=== PATIENT | male | born 1945 | race Caucasian/White ===

== ENCOUNTER 2025-02-08 20:50 | Inpatient (IN) ==
[2025-02-08] MEDS: OPTIRAY 320 100ml IV ONE (21:46)
--- NOTE | 2025-02-08 21:49 | Surgery Consultation ---
Date of Consultation February 08, 2025 Assessment & Plan (1) Abdominal pain: I discussed with the treating emergency room physician. The patient is likely going to be admitted on the medical service with surgical recommendations as follows: Cause of patient's abdominal pain has not been definitively ascertained. The patient does have some areas of free fluid in his abdomen with potential etiologies as follows: 1. The fluid could represent blood/hematoma but I doubt this is present as the patient does not have a significant drop of his hemoglobin and hematocrit 2. The fluid could represent retained irrigation fluid or inflammatory fluid/seroma 3. Fluid could potentially represent a postoperative abscess 4. The fluid could potentially represent a postoperative biloma/bile leak In addition patient has abdominal bloating/distention likely on the basis of a postoperative ileus I suspect the patient's shoulder pain is likely referred pain potentially from abdominal insufflation at time of surgery The treating emergency room physician has ordered a repeat CT scan of the abdomen pelvis which I feel is reasonable A chest x-ray has been ordered and has been reviewed. The patient does appear to have small bilateral pleural effusions. I did not appreciate any significant free intraperitoneal or subdiaphragmatic air An EKG has been performed that showed sinus rhythm without changes indicative of acute ischemia Appropriate blood cultures and a urinalysis have been ordered A full panel of labs have been ordered including a CBC, CMP, lactic acid level, coagulation studies and lipase; we will await the results of these and act accordingly Antibiotics in the form of Zosyn have been ordered and should continue Will hydrate the patient with IV fluids. The treating emergency room physician has ordered 1 L fluid bolus and then we will proceed with maintenance fluids at 125 cc/h (I suspect the patient is somewhat dehydrated from poor oral intake over the past several daysthis is consistent with labs values of his BUN, creatinine, hemoglobin, and hematocrit) Would recommend keeping the patient n.p.o. for the present time In order to to further investigate for a bile leak will obtain a HIDA scan tomorrow Would recommend utilizing only SCDs for DVT prevention, no chemical means until it is ascertained whether or not the patient requires any procedural/surgical intervention Additional recommendations will be forthcoming based on his clinical course as unfolds The above plan was discussed with the patient's , Citlalli, who was present at bedside. The patient's can be reached if she is not at the patient's bedside at her phone number which is [phone] Supervising Physician Co-Signing Physician Notes pnt d/w ALBERT, labs and imaging reviewed, agree with above. POD2 lap darek, presented to 2 hospitals with abd pain and FTT. increasing perihepatic fluid collection, concern for bile leak though patient has biliary stent in place. wbc 16, tbili 1.2, otherwise unremarkable. admit to medicine, broad spectrum abx, npo, HIDA scan tomorrow, possible IR aspiration/drainage. D/W Dr Almanza in AM. History of Present Illness Reason for Consultation: Abdominal pain status post cholecystectomy History of Present Illness This is an 79-year-old male who presented to the emergency department at [facility] as a transfer from the [facility] urgent care clinic. It should be noted that this man has underlying dementia and has poor short-term memory. Upon my initial questioning of the patient he could not remember events that even took place earlier today. His and granddaughter were present at the bedside shortly after my initial encounter and they verified that this is the patient's baseline. The patient's and granddaughter did help supplement the history thereafter. They note that the patient underwent an outpatient ERCP by Dr. Sherman Sullivan of [facility] gastroenterology on 01/20/2025. Dr. Sullivan's report was reviewed and he did find choledocholithiasis which was addressed and the patient did have a biliary stent placed which is still in place today. The patient subsequently underwent a laparoscopic cholecystectomy by Dr. Almanza at [facility] on 02/06/2025. The operative note from this procedure was reviewed and there were no apparent complications. According to the patient's , however the patient was having persistent abdominal pain following his surgery but then noted that the patient did meet criteria for discharge home and he was discharged home later that day. The patient resides at [place], [place] and the day following his surgery (02/07/2025) he was having significant abdominal pain and he presented to the [facility]. [facility] did talk to the on-call surgical providers at [facility] but no beds were available for direct transfer. The patient was observed at this facility but ultimately felt stable for discharge home with outpatient follow-up with his surgeon. The patient did reach out to his surgeon Dr. Almanza on 02/08/2025 which was today. He was seen in the outpatient clinic where the patient was noted to have an expected postoperative recovery course and he was felt to be stable for d ischarge home. The patient's noted that she felt uncomfortable with this decision and immediately took her to the [facility] urgent care clinic. While at the [facility] in [place] the patient did undergo a CT scan of the abdomen pelvis. This showed the patient had findings consistent with a cholecystectomy. There is a small volume of fluid collection in the gallbladder fossa felt to be consistent with recent surgery. The patient was however noted to have small to moderate peritoneal fluid collections in the sup diaphragmatic spaces which included the left greater than right, also along the greater curvature of the stomach and in the right upper quadrant adjacent to the second portion of the duodenum extending to the central mesentery. Fluid was also noted in the right colonic gutter and pelvis. A common duct stent was noted to be in place in the biliary tree. The interpreting radiologist did note that some of the fluid potentially represented a bile leak. There are also findings consistent with a probable colonic ileus. Labs performed at this facility included a CBC were white blood cell count was elevated 16,000. Hemoglobin and hematocrit were 15.1 and 44.9. Platelet count was normal. Labs included a BUN and creatinine of 36 and 1.6. The patient's sodium was normal as was his potassium. The patient did not have an elevated alkaline phosphatase which was 37. The patient's total bilirubin was normal at 1.1 and his direct bilirubin was normal at 0.3. The patient's transaminases were not elevated with an AST of 14 and ALT of 27. I did question the patient's on additional symptomatology. She does again note that since his surgery he has been complaining of significant abdominal pain. She notes that he complains of the pain radiates to the shoulders bilaterally. He has had almost no oral intake since his surgery including liquids. She notes that he has not had any nausea or vomiting and he has not had any difficulties urinating. She does report that he did have a bowel movement yesterday. He has not had any reported fevers (she does note that she took his temperature at home). The patient has not had any falls or head injuri es. In addition, she does note that he seems to have considerable abdominal bloating compared to normal for him. I did ask the patient's if he takes any blood thinners and he only takes a baby aspirin but no other anticoagulants. At the time of my interview with the patient he was in no distress but he did seem somewhat uncomfortable Allergies Allergy/AdvReac Type Severity Reaction Status Date / Time cortisone Allergy Mild Cortisone Verified 02/06/25 09:03 cream ("made things worse") Home Medications Medication Instructions Recorded Confirmed Type albuterol sulfate 90 mcg/actuation 1 inh inhalation QID PRN sob 01/31/25 02/08/25 History aerosol inhaler amlodipine 2.5 mg tablet 2.5 mg PO QPM 01/31/25 02/08/25 History aspirin 81 mg tablet,delayed 81 mg PO QAM 01/31/25 02/08/25 History release cetirizine 10 mg capsule (Allergy 10 mg PO DAILY 01/31/25 02/08/25 History Relief (cetirizine)) cyanocobalamin (vitamin B-12) 1,000 mcg PO 4XWK 01/31/25 02/08/25 History 1,000 mcg capsule donepezil 10 mg tablet 10 mg PO HS 01/31/25 02/08/25 History fluticasone propionate 50 1 spray intranasal BID PRN 01/31/25 02/08/25 History mcg/actuation nasal Congestion spray,suspension hydrochlorothiazide 25 mg tablet 12.5 mg PO QAM 01/31/25 02/08/25 History lutein 25 mg-zeaxanthin 5 mg 1 cap PO HS 01/31/25 02/08/25 History capsule memantine 10 mg tablet 10 mg PO BID 01/31/25 02/08/25 History fluticasone 100 mcg-salmeterol 50 1 inh inhalation BID 02/06/25 02/08/25 History mcg/dose blistr powdr for inhalation (Advair Diskus) oxycodone-acetaminophen 5 mg-325 1 tab PO Q6H PRN pain #14 tabs 02/06/25 02/08/25 Rx mg tablet (Percocet) Patient History Medical History Mild chronic obstructive pulmonary disease Per [facility] Dyslipidemia [place] [facility] Coronary artery disease Per [facility] Nonobstructive CAD on 2021 cardiac cath 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 Arthritis Dementia " states will not leave alone because of safety" will be present DOS per PAT RN History of TIA (transient ischemic attack) 10+ years ago Hypertension Asthma Surgical History History of cardiac cath 2021 H/O colonoscopy with polypectomy History of anesthesia reaction ERCP; [facility] (01/20/25) > "Required inhaler" Anesthesia records scanned into chart: "Comments: Patient responded very well to the duo-nebulizer treatment; he is 96% SaO2, comfortable and essentially back to his baseline." History of knee replacement procedure of right knee History of tooth extraction History of tonsillectomy H/O bilateral cataract extraction History of ERCP (01/20/25) ERCP; [facility] Family History Other No family history of adverse response to anesthesia Social History Smoking Status: Former smoker Tobacco Type: Cigarettes Second Hand Exposure: No; Do You Dip or Chew Tobacco: No; Hx Alcohol Use: No Preferred Language: Setswana Geologist Required: No Beliefs That Will Affect Care: None Current Living Situation: Family Current Living Situation Comment: and grandaughter Feels Safe at Home: Yes Assistive Devices: Cane Review of Systems Review of Systems: All systems reviewed & are unremarkable except as noted in HPI & below As noted in the HPI, review of systems and historical data were obtained in conjunction with the patient's who helps supplement the history. Physical Exam Constitutional: WD/WN, vitals as above Eyes: No scleral jaundice ENMT: Ears: no hearing impairment and no external ear abnormality No subungual jaundice noted Neck: trachea midline Respiratory: normal respiratory effort; no respiratory distress and no labored breathing Breath sounds slightly decreased at bases bilaterally Cardiovascular: Rate/Rhythm: regular rate and regular rhythm Gastrointestinal (Abdomen): Patient's abdomen is moderately distended. It is tympanic to percussion. The patient has generalized pain to palpation throughout his abdomen but this appears to be greatest overlying his laparoscopic incisions. All 4 laparoscopic incisions are clean, dry, intact. There is a small amount of bruising in the right upper quadrant on the skin. His abdomen is not rigid. There is no rebound tenderness or guarding. Musculoskeletal: No calf tenderness, feet are warm and well-perfused Skin: no jaundice Neurologic: moves all extremities Psychiatric: Patient is alert to person, confused to time and place Results & Data Vital Signs (Past 12 Hours) Vital Signs Temp Pulse Pulse Resp BP Pulse Ox O2 Del Method 02/08/25 21:06 80 18 100 Room Air 02/08/25 21:06 82 18 98 02/08/25 20:59 36.8 C 105 H 18 117/86 100 Room Air 02/08/25 20:56 105 H PG Care Time/CCT Total # of Minutes Spent Total Time Spent with Patient: Total time spent is greater than 50% in coordination of care (as documented) at patient's floor/unit and/or counseling patient: Coding Level of Care Code None Diagnoses Abdominal pain R10.9
[2025-02-08] MEDS: SODIUM CHLORIDE 0.9% 1,000 ML IV SCH ×3 (21:52→23:41)
[2025-02-08] MEDS: MoRPHine SULFATE 2 MG/ML CARP IV STA (21:52)
[2025-02-08] MEDS: PIPERACILLIN/TAZOBACTAM 4.5 GM/120 ML BAG IV ONE (21:52)
[2025-02-08] MEDS: ONDANSETRON INJ 2 MG/ML 2 ML VIAL IV STA (21:53)
--- NOTE | 2025-02-08 21:57 | Emergency Department Note ---
History of Present Illness General Chief Complaint: Abdominal Pain Stated Complaint: Abdominal Pain, Post-OP Complications Time Seen by Provider: 02/08/25 20:54 Limitations: altered mental status (Patient has dementia) History of Present Illness Provider Complaint: abdominal pain Maximum Pain Intensity: 10 79-year-old male presents emergency department from outlying facility for abdominal pain. Patient had recent cholecystectomy performed. Since then he has been having fevers. Home Medications Medication Instructions Recorded Confirmed Type albuterol sulfate 90 mcg/actuation 1 inh inhalation QID PRN sob 01/31/25 02/08/25 History aerosol inhaler amlodipine 2.5 mg tablet 2.5 mg PO QPM 01/31/25 02/08/25 History aspirin 81 mg tablet,delayed 81 mg PO QAM 01/31/25 02/08/25 History release cetirizine 10 mg capsule (Allergy 10 mg PO DAILY 01/31/25 02/08/25 History Relief (cetirizine)) cyanocobalamin (vitamin B-12) 1,000 mcg PO 4XWK 01/31/25 02/08/25 History 1,000 mcg capsule donepezil 10 mg tablet 10 mg PO HS 01/31/25 02/08/25 History fluticasone propionate 50 1 spray intranasal BID PRN 01/31/25 02/08/25 History mcg/actuation nasal Congestion spray,suspension hydrochlorothiazide 25 mg tablet 12.5 mg PO QAM 01/31/25 02/08/25 History lutein 25 mg-zeaxanthin 5 mg 1 cap PO HS 01/31/25 02/08/25 History capsule memantine 10 mg tablet 10 mg PO BID 01/31/25 02/08/25 History fluticasone 100 mcg-salmeterol 50 1 inh inhalation BID 02/06/25 02/08/25 History mcg/dose blistr powdr for inhalation (Advair Diskus) oxycodone-acetaminophen 5 mg-325 1 tab PO Q6H PRN pain #14 tabs 02/06/25 02/08/25 Rx mg tablet (Percocet) Allergies Allergy/AdvReac Type Severity Reaction Status Date / Time cortisone Allergy Mild Cortisone Verified 02/06/25 09:03 cream ("made things worse") Past Med/Surg History Problem List (Updated 02/08/25 @ 22:42 by Francesco Rocha MD) Post-operative complication (Acute) Sepsis (Acute) Abdominal pain Cholelithiasis Encounter for pre-operative examination Medical History Mild chronic obstructive pulmonary disease [facility] Dyslipidemia [facility] Coronary artery disease [facility] Nonobstructive CAD on 2021 cardiac cath 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 Arthritis Dementia " states will not leave alone because of safety" will be present DOS per PAT RN History of TIA (transient ischemic attack) 10+ years ago Hypertension Asthma Surgical History History of cardiac cath 2021 H/O colonoscopy with polypectomy History of anesthesia reaction ERCP; [facility] (01/20/25) > "Required inhaler" Anesthesia records scanned into chart: "Comments: Patient responded very well to the duo-nebulizer treatment; he is 96% SaO2, comfortable and essentially back to his baseline." History of knee replacement procedure of right knee History of tooth extraction History of tonsillectomy H/O bilateral cataract extraction History of ERCP (01/20/25) ERCP; [facility] Family History Other No family history of adverse response to anesthesia Social History Smoking Status: Former smoker Tobacco Type: Cigarettes Second Hand Exposure: No; Do You Dip or Chew Tobacco: No; Hx Alcohol Use: No Preferred Language: Beninese Attendant Lodging Facilities Required: No Beliefs That Will Affect Care: None Current Living Situation: Family Current Living Situation Comment: and grandaughter Feels Safe at Home: Yes Assistive Devices: Cane Physical Exam 2 Vital Signs: Vital Signs - 24 hr 02/08/25 20:56 02/08/25 20:59 02/08/25 21:06 Temperature 36.8 C Temperature Source Oral Pulse Rate 105 H 105 H Pulse Rate [Apical ] 82 Pulse Rhythm Regular Pulse Rhythm [Apic al] Regular Pulse Strength Normal Pulse Strength [Ap ical] Normal Respiratory Rate 18 18 Respiratory Effort / Characteristics Non-Labored Sponta neous Non-Labored Sponta neous Respiratory Depth Normal Normal Blood Pressure 117/86 Blood Pressure [Ri ght Arm] Blood Pressure Eva n 96 Blood Pressure Eva n [Right Arm] Pulse Oximetry 100 98 Oxygen Delivery Me thod Room Air Sepsis Recent Feve r Within 48 Hours No Sepsis New/Unexpla ined Change in Men loretta Status N/A Sepsis Action Take n by Nursing No Action Required 02/08/25 21:06 02/08/25 22:47 Temperature Temperature Source Pulse Rate 80 Pulse Rate [Apical ] 86 Pulse Rhythm Regular Pulse Rhythm [Apic al] Regular Pulse Strength Pulse Strength [Ap ical] Normal Respiratory Rate 18 16 Respiratory Effort / Characteristics Non-Labored Respiratory Depth Normal Blood Pressure Blood Pressure [Ri ght Arm] 134/77 Blood Pressure Eva n Blood Pressure Eva n [Right Arm] 96 Pulse Oximetry 100 93 Oxygen Delivery Me thod Room Air Room Air Sepsis Recent Feve r Within 48 Hours Sepsis New/Unexpla ined Change in Men loretta Status Sepsis Action Take n by Nursing Physical Exam: Physical Exam GENERAL: oriented to person, place, and time. appears well-developed and well- nourished. HENT: Exam performed. - Head: Normocephalic and atraumatic. EYES: Conjunctivae and EOM are normal. Right eye exhibits no discharge. Left eye exhibits no discharge. No scleral icterus. NECK: Normal range of motion. Neck supple. No JVD present. CV: Normal rate, regular rhythm, normal heart sounds and intact distal pulses. There is no peripheral edema. Palpable radial pulses bue. PULM/CHEST: Effort normal and breath sounds normal. No respiratory distress. No stridor. no wheezes. no rales. ABD: Distended abdomen. Surgical incisions appear clean. Diffuse tenderness to palpation. NEURO: Motor and sensation grossly intact. SKIN: Skin is warm and dry. He is not diaphoretic. PSYCH: normal mood and affect. Behavior is normal. Judgment and thought content normal. Course Course 2053: The patient was evaluated in room A11. A history and physical exam was performed Cardiac monitoring: An order was placed for continuous cardiac monitoring. The monitor shows a rate of 100 with sinus rhythm interpreted by me I was met in the room by the surgical PA Suresh Cam. He states he was aware of this patient. Patient was seen by outpatient general surgery Dr. Ross. Reportedly the patient had a laparoscopic cholecystectomy performed by Dr. Ross 2 days ago on February 06, 2025. He was seen in an outside facility yesterday and they attempted to transfer the patient to this facility however there are no beds available. The patient saw Dr. Ross in the office today and was then referred to the emergency department today. Suresh was able to pull the notes from Dr. Ross today which stated that the "patient has a common bile duct stent so the bile leak would almost be zero risk." External medical records were reviewed from the [facility]. While in their emergency department yesterday the patient a procalcitonin of 16.68 and a lactic acid of 2.4. White blood cell count was 16. Creatinine was 1.6. CT of the abdomen pelvis performed at that facility showed the followin. Multifocal low-attenuation peritoneal fluid appearing locally loculated in the gallbladder fossa subdiaphragmatic. Duodenal extending to the central mesentery and perihepatic locations. 8.2 x 6.6 x 4.2 cm. Distribution nonspecific but suspicious for potential bile leak. 2.There is a common duct stent without evidence of significant biliary ductal dilatation. CT was read by Dr. Ousmane Sanches MD. Then stated plan will be to check labs and obtain CT scan and most likely admit to medicine with surgery on consult and for HIDA scan tomorrow. 2124: Chest x-ray shows no free air under the diaphragm. I-STAT shows creatinine of 1.6. Discussed the case with Suresh who stated to get CT with contrast. 2134: Patient's lactic acid 2.4. Patient treated with 30 cc/kg normal saline bolus based off the patient's ideal body weight. Echo from April 06, 2024 showed an ejection fraction of 65 to 70% with overall left ventricular systolic function being normal. Zosyn empirically started on the patient. 2238: Vital signs stable. Labs show leukocytosis 16.09. Lactic acid 2.4 creatinine 1.48 total bilirubin 1.2 AST ALT unremarkable. Discussed the case with surgery team ERNESTINA Ortiz for Dr. Park. He states to admit to medicine and surgery will be on consult. [facility] the [facility]. Administered Medications Sodium Chloride (Nss) 1,000 mls @ 999 mls/hr IV .Q1H1M SHANNON Stop: 02/08/25 23:45 Last Admin: 02/08/25 22:43 Dose: 999 mls/hr Documented By: Infusion: 02/08/25 22:43 Dose: Infused Documented By: Admin: 02/08/25 21:52 Dose: 999 mls/hr Documented By: RAYNE Discontinued Medications Piperacillin Sod/Tazobactam Sod (Zosyn) 4.5 gm in 120 mls @ 240 mls/hr IV NOW ONE Stop: 02/08/25 21:35 Last Infusion: 02/08/25 22:30 Dose: Infused Documented By: Admin: 02/08/25 21:52 Dose: 240 mls/hr Documented By: RAYNE Sodium Chloride (Nss) 1,000 mls @ 125 mls/hr IV .Q8H SHANNON Stop: 02/11/25 21:14 Last Admin: 02/08/25 22:42 Dose: Not Given Documented By: JUAN Sodium Chloride (Nss) 500 mls @ 999 mls/hr IV .Q31M ONE Stop: 02/08/25 22:05 Last Admin: 02/08/25 22:46 Dose: 999 mls/hr Documented By: ARYNE Ioversol (Optiray 320 100ml) 93 ml IV ONCE ONE Stop: 02/08/25 21:45 Last Admin: 02/08/25 21:46 Dose: 93 ml Documented By: DESIREE Morphine Sulfate (Morphine Sulfate 2 Mg/Ml Carp) 2 mg IV NOW STA Stop: 02/08/25 21:31 Last Admin: 02/08/25 21:52 Dose: 2 mg Documented By: RAYNE Ondansetron HCl (Ondansetron Inj 2 Mg/Ml 2 Ml Vial) 4 mg IV NOW STA Stop: 02/08/25 21:31 Last Admin: 02/08/25 21:53 Dose: 4 mg Documented By: RAYNE Medical Decision Making Medical Records Attestation: I reviewed the patient's medical records. External medical records were reviewed from the [facility]. While in their emergency department yesterday the patient a procalcitonin of 16.68 and a lactic acid of 2.4. White blood cell count was 16. Creatinine was 1.6. CT of the abdomen pelvis performed at that facility showed the followin. Multifocal low-attenuation peritoneal fluid appearing locally loculated in the gallbladder fossa subdiaphragmatic. Duodenal extending to the central mesentery and perihepatic locations. 8.2 x 6.6 x 4.2 cm. Distribution nonspecific but suspicious for potential bile leak. 2.There is a common duct stent without evidence of significant biliary ductal dilatation. Laboratory Data Attestation: I reviewed the patient's lab results. 02/08/25 21:20 02/08/25 21:20 Lab Results 02/08/25 02/08/25 02/08/25 Range/Units 21:20 21:24 21:27 WBC 16.09 H (4.8-10.8) K/ul RBC 4.97 (4.70-6.10) M/uL Hgb 15.0 (14.0-18.0) g/dl POC Hgb 15.6 (14.0-18.0) g/dl Hct 44.0 (42.0-52.0) % POC Hct 46 (42-52) % MCV 88.5 (80.0-100.0) fL MCH 30.2 (25.0-34.0) pg MCHC 34.1 (32.0-36.0) g/dL RDW Std Deviation 45.6 (36.4-46.3) fL RDW Coeff of Shira 14.1 (11.5-14.5) % Plt Count 283 (130-400) K/uL MPV 11.1 (9.4-12.4) fL Immature Gran % (Auto) 1.1 % Neut % (Auto) 90.1 % Lymph % (Auto) 4.3 % [place] % (Auto) 4.2 % Eos % (Auto) 0.1 % Baso % (Auto) 0.2 % Neut # (Auto) 14.51 H (1.40-6.50) K/uL Lymph # (Auto) 0.69 L (1.20-3.40) K/uL [place] # (Auto) 0.67 H (0.11-0.59) K/uL Eos # (Auto) 0.01 (0.00-0.50) K/uL Baso # (Auto) 0.04 (0.00-0.20) K/uL Immature Gran # (Auto) 0.17 (0.01-0.20) K/uL Dohle Bodies 1+ Echinocytes 1+ PT (9.0-12.0) Seconds INR (0.9-1.1) APTT (21-31) Seconds PTT Ratio POC Sodium 138 (135-144) mmol/L Sodium 138 (136-145) mmol/L POC Potassium 3.8 (3.3-5.0) mmol/L Potassium 3.8 (3.5-5.1) mmol/L POC Chloride 106 (101-112) mmol/L Chloride 105 (98-107) mmol/L Carbon Dioxide 23 (21-32) mmol/L POC Total CO2 21 L (24-31) mmol/L Anion Gap 10 (3-11) POC Anion Gap 17.0 (16-25) mmol/L POC BUN 32 H (7-18) mg/dl BUN 35 H (6-23) mg/dl Creatinine 1.48 H (0.6-1.4) mg/dl POC Creatinine 1.6 H (0.6-1.3) mg/dl Est Cr Clr Drug Dosing 47.5 ml/min eGFR 47.24 BUN/Creatinine Ratio 23.6 H (10-20) Glucose 124 H (70-99(Fasting)) mg/dl POC Glucose (other) 124 H (70-99) mg/dl Lactate 2.4 H* (0.4-2.0) mmol/L Calcium 8.9 (8.6-10.3) mg/dl POC Ioniz Calcium Evelyne 1.04 L (1.12-1.32) mmol/l Total Bilirubin 1.2 H (0.2-1.0) mg/dl Direct Bilirubin 0.2 (0-0.2) mg/dl AST 21 (13-39) U/L ALT 12 (7-52) U/L Alkaline Phosphatase 38 (34-104) U/L Total Protein 6.4 (6.0-8.3) gm/dl Albumin 3.4 (3.4-5.0) gm/dl Lipase 11 (11-82) U/L Urine Color Yellow Urine Appearance Clear (Clear) Urine pH 6.0 (4.5-7.5) Ur Specific [place] > 1.045 H (1.000-1.030) Urine Protein 2+ H (Negative) Urine Glucose (UA) Negative (Negative) Urine Ketones Trace H (Negative) Urine Blood 2+ H (Negative) Urine Nitrite Negative (Negative) Urine Bilirubin Negative (Negative) Urine Urobilinogen Negative (Negative) Ur Leukocyte Esterase 1+ H (Negative) Urine WBC (Auto) 11-20 H (0-5) /hpf Urine RBC (Auto) 11-20 H (0-2) /hpf U Hyaline Cast (Auto) 0-2 (0-2) /lpf U Epithel Cells (Auto) 0-2 (0-2) /hpf Urine Bacteria (Auto) None Seen (None Seen) Urine Comment 02/08/25 Range/Units 21:41 WBC (4.8-10.8) K/ul RBC (4.70-6.10) M/uL Hgb (14.0-18.0) g/dl POC Hgb (14.0-18.0) g/dl Hct (42.0-52.0) % POC Hct (42-52) % MCV (80.0-100.0) fL MCH (25.0-34.0) pg MCHC (32.0-36.0) g/dL RDW Std Deviation (36.4-46.3) fL RDW Coeff of Shira (11.5-14.5) % Plt Count (130-400) K/uL MPV (9.4-12.4) fL Immature Gran % (Auto) % Neut % (Auto) % Lymph % (Auto) % [place] % (Auto) % Eos % (Auto) % Baso % (Auto) % Neut # (Auto) (1.40-6.50) K/uL Lymph # (Auto) (1.20-3.40) K/uL [place] # (Auto) (0.11-0.59) K/uL Eos # (Auto) (0.00-0.50) K/uL Baso # (Auto) (0.00-0.20) K/uL Immature Gran # (Auto) (0.01-0.20) K/uL Dohle Bodies Echinocytes PT 13.0 H (9.0-12.0) Seconds INR 1.2 H (0.9-1.1) APTT 31 (21-31) Seconds PTT Ratio 1.2 POC Sodium (135-144) mmol/L Sodium (136-145) mmol/L POC Potassium (3.3-5.0) mmol/L Potassium (3.5-5.1) mmol/L POC Chloride (101-112) mmol/L Chloride (98-107) mmol/L Carbon Dioxide (21-32) mmol/L POC Total CO2 (24-31) mmol/L Anion Gap (3-11) POC Anion Gap (16-25) mmol/L POC BUN (7-18) mg/dl BUN (6-23) mg/dl Creatinine (0.6-1.4) mg/dl POC Creatinine (0.6-1.3) mg/dl Est Cr Clr Drug Dosing ml/min eGFR BUN/Creatinine Ratio (10-20) Glucose (70-99(Fasting)) mg/dl POC Glucose (other) (70-99) mg/dl Lactate (0.4-2.0) mmol/L Calcium (8.6-10.3) mg/dl POC Ioniz Calcium Evely[place] (1.12-1.32) mmol/l Total Bilirubin (0.2-1.0) mg/dl Direct Bilirubin (0-0.2) mg/dl AST (13-39) U/L ALT (7-52) U/L Alkaline Phosphatase (34-104) U/L Total Protein (6.0-8.3) gm/dl Albumin (3.4-5.0) gm/dl Lipase (11-82) U/L Urine Color Urine Appearance (Clear) Urine pH (4.5-7.5) Ur Specific [place] (1.000-1.030) Urine Protein (Negative) Urine Glucose (UA) (Negative) Urine Ketones (Negative) Urine Blood (Negative) Urine Nitrite (Negative) Urine Bilirubin (Negative) Urine Urobilinogen (Negative) Ur Leukocyte Esterase (Negative) Urine WBC (Auto) (0-5) /hpf Urine RBC (Auto) (0-2) /hpf U Hyaline Cast (Auto) (0-2) /lpf U Epithel Cells (Auto) (0-2) /hpf Urine Bacteria (Auto) (None Seen) Urine Comment Imaging Data Attestation: I personally reviewed and interpreted this imaging study as follows: My Impression: Chest x-ray: No free air under the diaphragm Radiologist's Impression: Abdomen/Pelvis CT 02/08/25 20:55 Exam(s): CT ABDOMEN + PELVIS With Contrast IV Amt: 93 ml optiray 320 EXAM: CT Abdomen and Pelvis With Intravenous Contrast CLINICAL HISTORY: abd pain. TECHNIQUE: Axial computed tomography images of the abdomen and pelvis with intravenous contrast. CTDI is 26.3 mGy and DLP is 1428 mGy-cm. Automated exposure control was utilized for the study. A dose lowering technique was utilized adhering to the principles of ALARA. CONTRAST: Patient received 93 ml optiray 320 of IV contrast COMPARISON: CT abdomen and pelvis with contrast 02/07/2025 FINDINGS: Lung bases: Subsegmental changes involving the lower lobes, right- [id number] are presumed compressive atelectasis. Pleural space: Layering bilateral pleural effusions remains small in volume, but are increased from the previous examination. No loculation. ABDOMEN: Liver: Unremarkable. No mass. Gallbladder and bile ducts: Status post cholecystectomy. The fluid collection in the mary hepatis is similar measuring 2.9 x 6 from 2.8 x 6 cm adjacent to the surgical clips. The small-caliber endoscopic silastic type stent in the common bile duct remains stable in position. No biliary dilatation with minimal pneumobilia, decreased in volume. Pancreas: Pancreas is stable in appearance with normal enhancement. No ductal dilation. Spleen: Unremarkable. No splenomegaly. Adrenals: Unremarkable. No mass. Kidneys and ureters: The kidneys are stable in appearance. Incidental cortical cysts. There is excreted contrast in the renal collecting systems, ureters and within the bladder. No hydronephrosis. Stomach and bowel: No bowel obstruction. No asymmetric bowel mucosal abnormality. Extensive diverticulosis of the descending and sigmoid colon. Evaluation for diverticulitis is limited. No appreciable alteration. There is new mucosal prominence of the stomach adjacent to the fluid collections. There appears to be duodenal edema, more prominent from the previous examination. PELVIS: Appendix: A normal-caliber appendix is noted along the medial aspect of the cecum in the right lower quadrant. Bladder: See above. No bladder wall thickening. Reproductive: Unremarkable as visualized. ABDOMEN and PELVIS: Intraperitoneal space: Similar scattered pneumoperitoneum. There is increased fluid in the superior abdomen with a collection now identified along the medial margin of the left lobe of the liver, measuring 8.6 x 7. 4 x 4.8 cm. There is also a collection along the fundus and proximal greater curvature of the stomach, measuring 2 cm in thickness and layering fluid along the posterior left hemidiaphragm. Trace perihepatic fluid, fluid in Morison's pouch and in the central pelvis are similar in volume. The fluid interposed between the hepatic flexure in the proximal duodenum is similar. Bones/joints: No acute fracture. No dislocation. Soft tissues: Unremarkable. Vasculature: Atherosclerotic disease. No abdominal aortic aneurysm. Lymph nodes: Unremarkable. No enlarged lymph nodes. IMPRESSION: 1. Similar scattered pneumoperitoneum. There is increased fluid in the superior abdomen with a collection now identified along the medial margin of the left lobe of the liver, measuring 8.6 x 7.4 x 4.8 cm. There is also a collection along the fundus and proximal greater curvature of the stomach, measuring 2 cm in thickness and layering fluid along the posterior left hemidiaphragm. Please correlate clinically for potential bile leak. 2. There is new mucosal prominence of the stomach adjacent to the fluid collections. There appears to be duodenal edema, more prominent from the previous examination. Developing infectious or reactive gastroduodenitis is suggested. 3. Layering bilateral pleural effusions remains small in volume, but are increased from the previous examination. No loculation. Electronically signed by: Sánchez Chandra MD 02/08/25 22:16 PM ECG Data Attestation: I personally reviewed and interpreted this ECG as follows: Rate (beats per minute): 103 Rhythm: sinus tachycardia Findings: no ST depression, no ST elevation or no prolonged QT Additional Comments: QRS 72 MDM Narrative 2053: The patient was evaluated in room A11. A history and physical exam was performed Cardiac monitoring: An order was placed for continuous cardiac monitoring. The monitor shows a rate of 100 with sinus rhythm interpreted by me I was met in the room by the surgical PA Suresh Cam. He states he was aware of this patient. Patient was seen by outpatient general surgery Dr. Ross. Reportedly the patient had a laparoscopic cholecystectomy performed by Dr. Ross 2 days ago on February 06, 2025. He was seen in an outside facility yesterday and they attempted to transfer the patient to this facility however there are no beds available. The patient saw Dr. Ross in the office today and was then referred to the emergency department today. Suresh was able to pull the notes from Dr. Ross today which stated that the "patient has a common bile duct stent so the bile leak would almost be zero risk." External medical records were reviewed from the [facility]. While in their emergency department yesterday the patient a procalcitonin of 16.68 and a lactic acid of 2.4. White blood cell count was 16. Creatinine was 1.6. CT of the abdomen pelvis performed at that facility showed the followin. Multifocal low-attenuation peritoneal fluid appearing locally loculated in the gallbladder fossa subdiaphragmatic. Duodenal extending to the central mesentery and perihepatic locations. 8.2 x 6.6 x 4.2 cm. Distribution nonspecific but suspicious for potential bile leak. 2.There is a common duct stent without evidence of significant biliary ductal dilatation. CT was read by Dr. Ousmane Sanches MD. Then stated plan will be to check labs and obtain CT scan and most likely admit to medicine with surgery on consult and for HIDA scan tomorrow. 2124: Chest x-ray shows no free air under the diaphragm. I-STAT shows creatinine of 1.6. Discussed the case with Suresh who stated to get CT with contrast. 2134: Patient's lactic acid 2.4. Patient treated with 30 cc/kg normal saline bolus based off the patient's ideal body weight. Echo from April 06, 2024 showed an ejection fraction of 65 to 70% with overall left ventricular systolic function being normal. Zosyn empirically started on the patient. 2238: Vital signs stable. Labs show leukocytosis 16.09. Lactic acid 2.4 creatinine 1.48 total bilirubin 1.2 AST ALT unremarkable. Discussed the case with surgery team ERNESTINA Ortiz for Dr. Park. He states to admit to medicine and surgery will be on consult. [facility] will [facility] the [facility]. Impression & Plan Sepsis, Post-operative complication Critical Care Time Critical Care Time: Yes Total Critical Care Time: 42 I have personally spent greater than 42 minutes of critical care time in the direct management of this patient. This includes bedside care, interpretation of diagnostic studies, and testing, discussion with consultants, patient, and family members, and other required patient management activities. This 42 minutes is in excess of all separately billable procedures. Discharge Plan Visit Data Chief Complaint: Abdominal Pain Stated Complaint: Abdominal Pain, Post-OP Complications ED Provider: Francesco Rocha Discharge Problem: Sepsis, Post-operative complication Patient Disposition: Admitted As Inpatient Condition: Serious Forms Stand Alone Forms: My [facility] Alg Prescriptions Prescriptions: No Action donepezil 10 mg Tablet 10 mg PO HS amlodipine 2.5 mg Tablet 2.5 mg PO QPM aspirin 81 mg Tablet,Delayed Release (Dr/Ec) 81 mg PO QAM hydrochlorothiazide 25 mg Tablet 12.5 mg PO QAM albuterol sulfate 90 mcg/actuation Hfa Aerosol Inhaler 1 inh INHALATION QID PRN (Reason: sob) fluticasone propionate 50 mcg/actuation [place],Suspension 1 spray INTRANASAL BID PRN (Reason: Congestion) Rx Instructions: administer into each nostril memantine 10 mg Tablet 10 mg PO BID Allergy Relief (cetirizine) 10 mg Capsule 10 mg PO DAILY lutein-zeaxanthin 25-5 mg Capsule 1 cap PO HS cyanocobalamin (vitamin B-12) 1,000 mcg Capsule 1,000 mcg PO 4XWK fluticasone propion-salmeterol [Advair Diskus] 100-50 mcg/dose Blister With Device 1 inh INHALATION BID oxycodone-acetaminophen [Percocet] 5-325 mg tablet 1 tab PO Q6H PRN (Reason: pain) Qty: 14 0RF Referrals Referrals: [facility],Hospital [Primary Care Provider] -
[2025-02-08 22:00] LABS: Appearance Urine Clear (Clear); Bacteria Urine Automated None Seen (None Seen); Cast Urine Automated 0-2 /lpf (0-2); Epithelial Cell Urine Auto 0-2 /hpf (0-2); Glucose Urine UA Negative (Negative)
[2025-02-08 22:00] LABS: Hematocrit (blood only) 44.0 % (42.0-52.0); Hemoglobin 15.0 g/dl (14.0-18.0); Mean Corpuscular Hemoglobin 30.2 pg (25.0-34.0); Mean Corpuscular Volume 88.5 fL (80.0-100.0); Platelet Count 283 K/uL (130-400); RDW Standard Deviation 45.6 fL (36.4-46.3); Red Blood Count 4.97 M/uL (4.70-6.10); White Blood Count 16.09 K/ul (4.8-10.8)
[2025-02-08 22:01] LABS: Anion Gap 10.0 (3-11); Bilirubin,Total 1.2 mg/dl (0.2-1.0); Calcium 8.9 mg/dl (8.6-10.3); Carbon Dioxide 23.0 mmol/L (21-32); Chloride 105.0 mmol/L (98-107); Potassium 3.8 mmol/L (3.5-5.1); Sodium 138.0 mmol/L (136-145)
[2025-02-08 22:07] LABS: Alanine Aminotransferase 12.0 U/L (7-52); Alkaline Phosphatase 38.0 U/L (34-104); Blood Urea Nitrogen 35.0 mg/dl (6-23); Creatinine Clr Calc Pharmacy 47.5 ml/min; Glucose 124.0 mg/dl (70-99(Fasting)); Lipase 11.0 U/L (11-82); Total Protein 6.4 gm/dl (6.0-8.3)
--- NOTE | 2025-02-08 22:17 | CT Scan Report ---
Exam(s): CT ABDOMEN + PELVIS With Contrast IV Amt: 93 ml optiray 320 EXAM: CT Abdomen and Pelvis With Intravenous Contrast CLINICAL HISTORY: abd pain. TECHNIQUE: Axial computed tomography images of the abdomen and pelvis with intravenous contrast. CTDI is 26.3 mGy and DLP is 1428 mGy-cm. Automated exposure control was utilized for the study. A dose lowering technique was utilized adhering to the principles of ALARA. CONTRAST: Patient received 93 ml optiray 320 of IV contrast COMPARISON: CT abdomen and pelvis with contrast 02/07/2025 FINDINGS: Lung bases: Subsegmental changes involving the lower lobes, right- [id number] are presumed compressive atelectasis. Pleural space: Layering bilateral pleural effusions remains small in volume, but are increased from the previous examination. No loculation. ABDOMEN: Liver: Unremarkable. No mass. Gallbladder and bile ducts: Status post cholecystectomy. The fluid collection in the mary hepatis is similar measuring 2.9 x 6 from 2.8 x 6 cm adjacent to the surgical clips. The small-caliber endoscopic silastic type stent in the common bile duct remains stable in position. No biliary dilatation with minimal pneumobilia, decreased in volume. Pancreas: Pancreas is stable in appearance with normal enhancement. No ductal dilation. Spleen: Unremarkable. No splenomegaly. Adrenals: Unremarkable. No mass. Kidneys and ureters: The kidneys are stable in appearance. Incidental cortical cysts. There is excreted contrast in the renal collecting systems, ureters and within the bladder. No hydronephrosis. Stomach and bowel: No bowel obstruction. No asymmetric bowel mucosal abnormality. Extensive diverticulosis of the descending and sigmoid colon. Evaluation for diverticulitis is limited. No appreciable alteration. There is new mucosal prominence of the stomach adjacent to the fluid collections. There appears to be duodenal edema, more prominent from the previous examination. PELVIS: Appendix: A normal-caliber appendix is noted along the medial aspect of the cecum in the right lower quadrant. Bladder: See above. No bladder wall thickening. Reproductive: Unremarkable as visualized. ABDOMEN and PELVIS: Intraperitoneal space: Similar scattered pneumoperitoneum. There is increased fluid in the superior abdomen with a collection now identified along the medial margin of the left lobe of the liver, measuring 8.6 x 7. 4 x 4.8 cm. There is also a collection along the fundus and proximal greater curvature of the stomach, measuring 2 cm in thickness and layering fluid along the posterior left hemidiaphragm. Trace perihepatic fluid, fluid in Morison's pouch and in the central pelvis are similar in volume. The fluid interposed between the hepatic flexure in the proximal duodenum is similar. Bones/joints: No acute fracture. No dislocation. Soft tissues: Unremarkable. Vasculature: Atherosclerotic disease. No abdominal aortic aneurysm. Lymph nodes: Unremarkable. No enlarged lymph nodes. IMPRESSION: 1. Similar scattered pneumoperitoneum. There is increased fluid in the superior abdomen with a collection now identified along the medial margin of the left lobe of the liver, measuring 8.6 x 7.4 x 4.8 cm. There is also a collection along the fundus and proximal greater curvature of the stomach, measuring 2 cm in thickness and layering fluid along the posterior left hemidiaphragm. Please correlate clinically for potential bile leak. 2. There is new mucosal prominence of the stomach adjacent to the fluid collections. There appears to be duodenal edema, more prominent from the previous examination. Developing infectious or reactive gastroduodenitis is suggested. 3. Layering bilateral pleural effusions remains small in volume, but are increased from the previous examination. No loculation. Electronically signed by: Sánchez Chandra MD 02/08/25 22:16 PM
[2025-02-08 22:25] LABS: Dohle Bodies 1+; Immature Granulocytes # (auto) 0.17 K/uL (0.01-0.20); Immature Granulocytes % (auto) 1.1 %
[2025-02-08 22:34] LABS: INR 1.2 (0.9-1.1); Partial Thromboplastin Time 31 Seconds (21-31); Prothrombin Time 13.0 Seconds (9.0-12.0)
[2025-02-08] MEDS: SODIUM CHLORIDE 0.9% 500 ML IV ONE (22:46)
--- NOTE | 2025-02-08 22:51 | History & Physical Report ---
Date of Service February 08, 2025 Assessment & Plan (1) Severe sepsis: Plan: Assessment and plan below following discussion of case with ED provider and reviewing patient history/pertinent normal/abnormal diagnostic test results. Severe sepsis SIRS plus ARF on CKD plus lactic acidosis Postop fluid collection, recent outpatient cholecystectomy hypertension, stable hx PVD/TIA asthma/COPD, stable NAFLD dementia, mentation at baseline Hyperglycemia rule out DM past tobacco abuse Admit to med/tele CS, Zosyn Monitor creatinine and lactic acid response to IVF Hold home diuretic for now General Surgery consult re: postop fluid collection (Patient already seen at the ER by provider who recommends performance of HIDA scan to rule out postop biliary leak.) Check hemoglobin A1c DVT prophylaxis. SCDs RE possible procedure Full code Patient requesting update providers. Citlalli Elias, contact #[phone]. Text document was generated using [employer] voice recognition software. It may contain grammatical or spelling errors. Kindly contact undersigned for clarification of any documentation item in question. History of Present Illness Chief Complaint: Worsening abdominal pain Primary Care Provider: [facility] History obtained from patient, family, and records. Limited history from patient secondary to dementia. Medical history significant for hypertension, hyperlipidemia, PVD, TIA, asthma/COPD, NAFLD, choledocholithiasis status post recent ERCP (12/2024) status post cholecystectomy (01/2025), CRI (baseline creatinine 1.4), dementia, BPH, urolithiasis, past tobacco abuse. 01/20 Patient underwent ERCP for bile duct stone on outpatient CT imaging at [facility]. Choledocholithiasis found. Subsequent removal accomplished by biliary sphincterotomy and balloon extraction. CBD stent placed. Repeat ERCP recommended after 6 weeks to remove stent as per endoscopist note. 02/06 Patient underwent elective laparoscopic cholecystectomy for symptomatic cholelithiasis at [facility]. 02/07 Patient evaluated at [facility] ER in [place], [place] for persistent achy left-sided abdominal discomfort postprocedure. CT abdomen pelvis report as follows : 6.5 x 2.7 x 3 cm fluid collection in the gallbladder fossa tracking fluid into adjacent RUQ mesentery and perihepatic space. Bile leak not excluded. Recommend clinical correlation and nuclear medicine HIDA scan. ED provider unable to transfer patient to [facility] due to lack of beds as per note. Patient refused transfer to another facility and decided to take patient home. 02/08 Patient seen on follow-up at [facility] general surgeon's office today. Bile leak almost 0 risk as per surgeon note due to prior CBD stent. Patient brought to [facility] ER by due to uncontrolled abdominal pain. Patient denies chest pain, SOB, cough. Zosyn administered at the ER. Medical History as above Surgical History : Cholecystectomy, knee surgery Family History : DM, dementia, RA Personal/Social history : Past tobacco abuse, no EtOH intake, lives with Allergies Allergy/AdvReac Type Severity Reaction Status Date / Time cortisone Allergy Mild Cortisone Verified 02/06/25 09:03 cream ("made things worse") Home Medications Medication Instructions Recorded Confirmed Type albuterol sulfate 90 mcg/actuation 1 inh inhalation QID PRN sob 01/31/25 02/08/25 History aerosol inhaler amlodipine 2.5 mg tablet 2.5 mg PO QPM 01/31/25 02/08/25 History aspirin 81 mg tablet,delayed 81 mg PO QAM 01/31/25 02/08/25 History release cetirizine 10 mg capsule (Allergy 10 mg PO DAILY 01/31/25 02/08/25 History Relief (cetirizine)) cyanocobalamin (vitamin B-12) 1,000 mcg PO 4XWK 01/31/25 02/08/25 History 1,000 mcg capsule donepezil 10 mg tablet 10 mg PO HS 01/31/25 02/08/25 History fluticasone propionate 50 1 spray intranasal BID PRN 01/31/25 02/08/25 History mcg/actuation nasal Congestion spray,suspension hydrochlorothiazide 25 mg tablet 12.5 mg PO QAM 01/31/25 02/08/25 History lutein 25 mg-zeaxanthin 5 mg 1 cap PO HS 01/31/25 02/08/25 History capsule memantine 10 mg tablet 10 mg PO BID 01/31/25 02/08/25 History fluticasone 100 mcg-salmeterol 50 1 inh inhalation BID 02/06/25 02/08/25 History mcg/dose blistr powdr for inhalation (Advair Diskus) oxycodone-acetaminophen 5 mg-325 1 tab PO Q6H PRN pain #14 tabs 02/06/25 02/08/25 Rx mg tablet (Percocet) Past Med/Surg History Problem List (Updated 02/09/25 @ 05:49 by Rehan Fang MD) Severe sepsis Post-operative complication (Acute) Sepsis (Acute) Abdominal pain Cholelithiasis Encounter for pre-operative examination Medical History Mild chronic obstructive pulmonary disease Per [place] [facility] [place] Dyslipidemia [place] [facility] [place] Coronary artery disease [place] [facility] [place] Nonobstructive CAD on 2021 cardiac cath 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 Arthritis Dementia " states will not leave alone because of safety" will be present DOS per PAT RN History of TIA (transient ischemic attack) 10+ years ago Hypertension Asthma Surgical History History of cardiac cath 2021 H/O colonoscopy with polypectomy History of anesthesia reaction ERCP; [facility] (01/20/25) > "Required inhaler" Anesthesia records scanned into chart: "Comments: Patient responded very well to the duo-nebulizer treatment; he is 96% SaO2, comfortable and essentially back to his baseline." History of knee replacement procedure of right knee History of tooth extraction History of tonsillectomy H/O bilateral cataract extraction History of ERCP (01/20/25) ERCP; [facility] Family History Other No family history of adverse response to anesthesia Social History Smoking Status: Former smoker Tobacco Type: Cigarettes Second Hand Exposure: No; Do You Dip or Chew Tobacco: No; Hx Alcohol Use: No Hx Substance Use: No Preferred Language: German Communication Ability: Effective Podiatry Professor Required: No Beliefs That Will Affect Care: None Current Living Situation: Spouse Current Living Situation Comment: + adult granddaughter Feels Safe at Home: Yes Safety Concerns: Feels Safe At This Time Assistive Devices: None Review of Systems Review of Systems: Could not be reliably obtained secondary to dementia Physical Exam Physical Exam: GENERAL: Demented, comfortable, obese, no respiratory distress SKIN: Normal color, warm HEENT: [place] palpebral conjunctivae, no ptosis, dry buccal mucosa NECK : Supple, no tenderness CHEST : Decreased breath sounds , no tenderness HEART : Tachycardic, no obvious murmurs ABDOMEN: Some distention, epigastric tenderness EXTREMITIES : No LE swelling/tenderness, palpable pulses, no other conspicuous deformities noted NEUROLOGIC : demented, no facial asymmetry, no other gross focality Results & Data Results & Data Vital Signs (Past 12 Hours) Vital Signs Temp Pulse Pulse Resp BP BP Pulse Ox 02/08/25 22:47 86 16 134/77 93 02/08/25 21:06 80 18 100 02/08/25 21:06 82 18 98 02/08/25 20:59 36.8 C 105 H 18 117/86 100 02/08/25 20:56 105 H O2 Del Method 02/08/25 22:47 Room Air 02/08/25 21:06 Room Air 02/08/25 21:06 02/08/25 20:59 Room Air 02/08/25 20:56 Laboratory Results Laboratory Results WBC 16.09 K/ul (4.8-10.8) H 02/08/25 21:20 RBC 4.97 M/uL (4.70-6.10) 02/08/25 21:20 Hgb 15.0 g/dl (14.0-18.0) 02/08/25 21:20 POC Hgb 15.6 g/dl (14.0-18.0) 02/08/25 21:24 Hct 44.0 % (42.0-52.0) 02/08/25 21:20 POC Hct 46 % (42-52) 02/08/25 21:24 MCV 88.5 fL (80.0-100.0) 02/08/25 21:20 MCH 30.2 pg (25.0-34.0) 02/08/25 21:20 MCHC 34.1 g/dL (32.0-36.0) 02/08/25 21:20 RDW Std Deviation 45.6 fL (36.4-46.3) 02/08/25 21:20 RDW Coeff of Shira 14.1 % (11.5-14.5) 02/08/25 21:20 Plt Count 283 K/uL (130-400) 02/08/25 21:20 MPV 11.1 fL (9.4-12.4) 02/08/25 21:20 Immature Gran % (Auto) 1.1 % 02/08/25 21:20 Neut % (Auto) 90.1 % 02/08/25 21:20 Lymph % (Auto) 4.3 % 02/08/25 21:20 [place] % (Auto) 4.2 % 02/08/25 21:20 Eos % (Auto) 0.1 % 02/08/25 21:20 Baso % (Auto) 0.2 % 02/08/25 21:20 Neut # (Auto) 14.51 K/uL (1.40-6.50) H 02/08/25 21:20 Lymph # (Auto) 0.69 K/uL (1.20-3.40) L 02/08/25 21:20 [place] # (Auto) 0.67 K/uL (0.11-0.59) H 02/08/25 21:20 Eos # (Auto) 0.01 K/uL (0.00-0.50) 02/08/25 21:20 Baso # (Auto) 0.04 K/uL (0.00-0.20) 02/08/25 21:20 Immature Gran # (Auto) 0.17 K/uL (0.01-0.20) 02/08/25 21:20 Dohle Bodies 1+ 02/08/25 21:20 Echinocytes 1+ 02/08/25 21:20 PT 13.0 Seconds (9.0-12.0) H 02/08/25 21:41 INR 1.2 (0.9-1.1) H 02/08/25 21:41 APTT 31 Seconds (21-31) 02/08/25 21:41 PTT Ratio 1.2 02/08/25 21:41 POC Sodium 138 mmol/L (135-144) 02/08/25 21:24 Sodium 138 mmol/L (136-145) 02/08/25 21:20 POC Potassium 3.8 mmol/L (3.3-5.0) 02/08/25 21:24 Potassium 3.8 mmol/L (3.5-5.1) 02/08/25 21:20 POC Chloride 106 mmol/L (101-112) 02/08/25 21:24 Chloride 105 mmol/L (98-107) 02/08/25 21:20 Carbon Dioxide 23 mmol/L (21-32) 02/08/25 21:20 POC Total CO2 21 mmol/L (24-31) L 02/08/25 21:24 Anion Gap 10 (3-11) 02/08/25 21:20 POC Anion Gap 17.0 mmol/L (16-25) 02/08/25 21:24 POC BUN 32 mg/dl (7-18) H 02/08/25 21:24 BUN 35 mg/dl (6-23) H 02/08/25 21:20 Creatinine 1.48 mg/dl (0.6-1.4) H 02/08/25 21:20 POC Creatinine 1.6 mg/dl (0.6-1.3) H 02/08/25 21:24 Est Cr Clr Drug Dosing 47.5 ml/min 02/08/25 21:20 eGFR 47.24 02/08/25 21:20 BUN/Creatinine Ratio 23.6 (10-20) H 02/08/25 21:20 Glucose 124 mg/dl (70-99(Fasting)) H 02/08/25 21:20 POC Glucose (other) 124 mg/dl (70-99) H 02/08/25 21:24 Lactate 2.4 mmol/L (0.4-2.0) H* 02/08/25 21:20 Calcium 8.9 mg/dl (8.6-10.3) 02/08/25 21:20 POC Ioniz Calcium [place] 1.04 mmol/l (1.12-1.32) L 02/08/25 21:24 Total Bilirubin 1.2 mg/dl (0.2-1.0) H 02/08/25 21:20 Direct Bilirubin 0.2 mg/dl (0-0.2) 02/08/25 21:20 AST 21 U/L (13-39) 02/08/25 21:20 ALT 12 U/L (7-52) 02/08/25 21:20 Alkaline Phosphatase 38 U/L (34-104) 02/08/25 21:20 Total Protein 6.4 gm/dl (6.0-8.3) 02/08/25 21:20 Albumin 3.4 gm/dl (3.4-5.0) 02/08/25 21:20 Lipase 11 U/L (11-82) 02/08/25 21:20 Urine Color Yellow 02/08/25 21: Urine Appearance Clear (Clear) 02/08/25 21: Urine pH 6.0 (4.5-7.5) 02/08/25 21: Ur Specific [place] > 1.045 (1.000-1.030) H 02/08/25 21:27 Urine Protein 2+ (Negative) H 02/08/25 21: Urine Glucose (UA) Negative (Negative) 02/08/25 21: Urine Ketones Trace (Negative) H 02/08/25 21: Urine Blood 2+ (Negative) H 02/08/25 21: Urine Nitrite Negative (Negative) 02/08/25 21: Urine Bilirubin Negative (Negative) 02/08/25: Urine Urobilinogen Negative (Negative) 02/08/25 21: Ur Leukocyte Esterase 1+ (Negative) H 02/08/25 21:27 Urine WBC (Auto) 11-20 /hpf (0-5) H 02/08/25 21: Urine RBC (Auto) 11-20 /hpf (0-2) H 02/08/25 21: U Hyaline Cast (Auto) 0-2 /lpf (0-2) 02/08/25 21: U Epithel Cells (Auto) 0-2 /hpf (0-2) 02/08/25 21: Urine Bacteria (Auto) None Seen (None Seen) 02/08/25 21: Urine Comment 02/08/25 21: Impressions Abdomen/Pelvis CT 02/08/25 20:55 Exam(s): CT ABDOMEN + PELVIS With Contrast IV Amt: 93 ml optiray 320 EXAM: CT Abdomen and Pelvis With Intravenous Contrast CLINICAL HISTORY: abd pain. TECHNIQUE: Axial computed tomography images of the abdomen and pelvis with intravenous contrast. CTDI is 26.3 mGy and DLP is 1428 mGy-cm. Automated exposure control was utilized for the study. A dose lowering technique was utilized adhering to the principles of ALARA. CONTRAST: Patient received 93 ml optiray 320 of IV contrast COMPARISON: CT abdomen and pelvis with contrast 02/07/2025 FINDINGS: Lung bases: Subsegmental changes involving the lower lobes, right- [id number] are presumed compressive atelectasis. Pleural space: Layering bilateral pleural effusions remains small in volume, but are increased from the previous examination. No loculation. ABDOMEN: Liver: Unremarkable. No mass. Gallbladder and bile ducts: Status post cholecystectomy. The fluid collection in the mary hepatis is similar measuring 2.9 x 6 from 2.8 x 6 cm adjacent to the surgical clips. The small-caliber endoscopic silastic type stent in the common bile duct remains stable in position. No biliary dilatation with minimal pneumobilia, decreased in volume. Pancreas: Pancreas is stable in appearance with normal enhancement. No ductal dilation. Spleen: Unremarkable. No splenomegaly. Adrenals: Unremarkable. No mass. Kidneys and ureters: The kidneys are stable in appearance. Incidental cortical cysts. There is excreted contrast in the renal collecting systems, ureters and within the bladder. No hydronephrosis. Stomach and bowel: No bowel obstruction. No asymmetric bowel mucosal abnormality. Extensive diverticulosis of the descending and sigmoid colon. Evaluation for diverticulitis is limited. No appreciable alteration. There is new mucosal prominence of the stomach adjacent to the fluid collections. There appears to be duodenal edema, more prominent from the previous examination. PELVIS: Appendix: A normal-caliber appendix is noted along the medial aspect of the cecum in the right lower quadrant. Bladder: See above. No bladder wall thickening. Reproductive: Unremarkable as visualized. ABDOMEN and PELVIS: Intraperitoneal space: Similar scattered pneumoperitoneum. There is increased fluid in the superior abdomen with a collection now identified along the medial margin of the left lobe of the liver, measuring 8.6 x 7. 4 x 4.8 cm. There is also a collection along the fundus and proximal greater curvature of the stomach, measuring 2 cm in thickness and layering fluid along the posterior left hemidiaphragm. Trace perihepatic fluid, fluid in Morison's pouch and in the central pelvis are similar in volume. The fluid interposed between the hepatic flexure in the proximal duodenum is similar. Bones/joints: No acute fracture. No dislocation. Soft tissues: Unremarkable. Vasculature: Atherosclerotic disease. No abdominal aortic aneurysm. Lymph nodes: Unremarkable. No enlarged lymph nodes. IMPRESSION: 1. Similar scattered pneumoperitoneum. There is increased fluid in the superior abdomen with a collection now identified along the medial margin of the left lobe of the liver, measuring 8.6 x 7.4 x 4.8 cm. There is also a collection along the fundus and proximal greater curvature of the stomach, measuring 2 cm in thickness and layering fluid along the posterior left hemidiaphragm. Please correlate clinically for potential bile leak. 2. There is new mucosal prominence of the stomach adjacent to the fluid collections. There appears to be duodenal edema, more prominent from the previous examination. Developing infectious or reactive gastroduodenitis is suggested. 3. Layering bilateral pleural effusions remains small in volume, but are increased from the previous examination. No loculation. Electronically signed by: Sánchez Chandra MD 02/08/25 22:16 PM Diagnostic Findings EKG as per my interpretation :Rate 105, sinus tachycardia, normal axis, inferior infarct, nonspecific T wave abnormalities, low voltage
--- NOTE | 2025-02-08 23:17 | XRay Report ---
Exam(s): XR CXR 1 VIEW EXAM: XR Chest, 1 View CLINICAL HISTORY: fever. TECHNIQUE: Frontal view of the chest. COMPARISON: Portable chest single view dated 02/07/2025 FINDINGS: Lungs: Shallow inspiration. Lungs are similar in appearance without definite focal airspace consolidation. Pleural space: Unremarkable. No pneumothorax. No large pleural effusion. Heart: The cardiac silhouette is similar and slightly prominent, although presumed accentuated by portable technique. Mediastinum: The mediastinal contours are stable. No tracheal deviation. Bones/joints: Unremarkable. No acute fracture. IMPRESSION: Poor inspiratory effort without definite acute cardiopulmonary process or significant alteration from the prior examination. Electronically signed by: Sánchez Chandra MD 02/08/25 23:15 PM
[2025-02-08] MEDS ORDERED: PROMETHAZINE 6.25 MG/50.25 ML BAG IV PRN (23:30)
[2025-02-08] MEDS: POTASSIUM CHLORIDE 20 MEQ in LACTATED RINGER'S 1,000 ML IV ONE (23:38)
[2025-02-09 00:12] LABS: Magnesium 2.1 mg/dl (1.7-2.4)
[2025-02-09] MEDS: POTASSIUM CHLORIDE 20 MEQ in LACTATED RINGER'S 1,000 ML IV SCH (00:50)
[2025-02-09] MEDS: PIPERACILLIN/TAZOBACTAM 4.5 GM/100 ML BAG IV SCH (04:44)
[2025-02-09 04:49] LABS: Hematocrit (blood only) 40.4 % (42.0-52.0); Hemoglobin 13.7 g/dl (14.0-18.0); Mean Corpuscular Hemoglobin 30.0 pg (25.0-34.0); Mean Corpuscular Volume 88.6 fL (80.0-100.0); Platelet Count 283 K/uL (130-400); RDW Standard Deviation 45.6 fL (36.4-46.3); Red Blood Count 4.56 M/uL (4.70-6.10); White Blood Count 15.07 K/ul (4.8-10.8)
[2025-02-09 05:06] LABS: Alanine Aminotransferase 10.0 U/L (7-52); Albumin Globulin Ratio 1.1 (0.9-2); Alkaline Phosphatase 38.0 U/L (34-104); Anion Gap 8.0 (3-11); Bilirubin,Total 0.9 mg/dl (0.2-1.0); Blood Urea Nitrogen 31.0 mg/dl (6-23); Calcium 8.3 mg/dl (8.6-10.3); Carbon Dioxide 23.0 mmol/L (21-32); Chloride 108.0 mmol/L (98-107); Creatinine Clr Calc Pharmacy 52.1 ml/min; Globulin 2.7 gm/dl (2.5-4.0); Glucose 121.0 mg/dl (70-99(Fasting)); Potassium 3.9 mmol/L (3.5-5.1); Sodium 139.0 mmol/L (136-145); Total Protein 5.6 gm/dl (6.0-8.3)
[2025-02-09 05:33] LABS: Dohle Bodies 1+; Immature Granulocytes # (auto) 0.15 K/uL (0.01-0.20); Immature Granulocytes % (auto) 1.0 %
[2025-02-09] MEDS: HYDROmorphone INJ 0.5 MG/0.5 ML SYR IV PRN (07:28)
[2025-02-09 07:45] LABS: Hemoglobin A1C 5.8 % (4.5-5.6)
--- NOTE | 2025-02-09 10:28 | Surgery Progress Note ---
Date of Service February 09, 2025 Assessment & Plan (1) Abdominal pain: Plan: improved HIDA pending begin clears if HIDA negative can discharge responded to IVF won' t need abx at home Admission and Anticipated Discharge Date Admission Date: February 08, [address] looks post-op HIDA read pending but looks OK to me Review of Systems Constitutional: no fever and no chills Gastrointestinal: + abdominal pain; no nausea and no vomit ing Physical Exam Constitutional: WD/WN, vitals as above Respiratory: normal respiratory effort Cardiovascular: Rate/Rhythm: regular rate and regular rhythm Gastrointestinal (Abdomen): Inspection/Auscultation: + abdomen distended Percussion/Palpation: + abdomen tender Results & Data Vital Signs (Past 12 Hours) Vital Signs Pulse Pulse Resp BP Pulse Ox Pulse Ox O2 Del Method 02/09/25 08:32 89 02/09/25 06:07 98 H 18 151/86 H 94 Nasal Cannula 02/09/25 02:45 Nasal Cannula 02/09/25 02:45 97 H 22 132/68 93 Nasal Cannula 02/09/25 02:42 86 L Nasal Cannula 02/09/25 00:44 90 22 142/80 H 91 Room Air 02/09/25 00:44 91 02/08/25 22:47 86 16 134/77 93 Room Air O2 Del Method O2 Flow Rate 02/09/25 08:32 02/09/25 06:07 1 02/09/25 02:45 1 02/09/25 02:45 1 02/09/25 02:42 0 02/09/25 00:44 02/09/25 00:44 Room Air 02/08/25 22:47
[2025-02-09] MEDS: FLUTICASONE/VILANTEROL 100/25MCG 14 PUFFS/INHALER INH SCH (10:33)
--- NOTE | 2025-02-09 10:33 | Nuclear Medicine Report ---
NM hepatobiliary CLINICAL HISTORY: assess for bile leak s/p lap darek. TECHNIQUE: Sequential anterior abdominal images were obtained through 60 minutes following the intra venous administration of 5.4 mCi of technetium-99m Choletec. COMPARISON: CT scan yesterday FINDINGS: There is normal liver uptake. Uptake progresses normally to the common bile duct and the sm all bowel within 20 minutes. There is abnormal uptake migrating into the gallbladder fossa, consisten t with bile leak. IMPRESSION: Findings consistent with bile leak are present. ACT 112: Negative or not required by law. The above report was generated using voice recognition software. It may contain grammatical, syntax o r spelling errors. Electronically signed by: Poncho Soliman M.D. 02/09/2025 10:31 AM
[2025-02-09] MEDS: MEMANTINE HCL 10 MG TAB PO SCH (10:34)
--- NOTE | 2025-02-09 10:52 | Electrocardiogram Report ---
Test Reason : Blood Pressure : */* mmHG Vent. Rate : 103 BPM Atrial Rate : 103 BPM P-R Int : 176 ms QRS Dur : 72 ms QT Int : 314 ms P-R-T Axes : -9 -17 -22 degrees QTcB Int : 411 ms Sinus tachycardia Low voltage QRS Inferior infarct , age undetermined Abnormal ECG No previous ECGs available Confirmed by Jose Danielson ([id number]) on 02/09/2025 10:52:27 AM Referred By: [facility] Confirmed By: Jose Danielson
--- NOTE | 2025-02-09 13:19 | Gastrointestinal Consultation ---
Date of Consultation February 09, 2025 Assessment & Plan (1) Abdominal pain: (2) Bile leak: Plan 79yowm with h/o cholelithiasis s/p ERCP with stent placement on 01/20/25 and laparoscopic cholecystectomy 02/06/25 is seen today for concerns of bile leak. (1) Bile Leak - HIDA scan, CT abd/pelvis, OR notes and ERCP reviewed with Dr. Trujillo. - At this time with stent in place, patient would not benefit from repeat ERCP as he has large 10Fr stent in place. - Would recommend ongoing observation as these leaks can take up to 3 weeks to heal/absorb. - Further recommendations to come with Supervising GI provider on medical rounds. Please see co-signature comments. Supervising Physician Co-Signing Physician Notes Reviewed. Patient has increased fluid collections over his previous CT scan. He is most tender in the right lower quadrant less so around the gallbladder fossa. There is some abdominal distention. Bowel sounds are present. White count elevated. HIDA scan consistent with bile leak. However patient has an indwelling biliary stent. This is a 10 Latvian 7 cm meter Silastic stent which would be the optimal size for biliary stent in for bile leak. I do not think a repeat ERCP or stent change will have any effect here. Based on increasing fluid collection consider placement of radiographical biliary drain confirmed biloma and no infection. Continue IV antibiotics. No further endoscopic or ERCP intervention is likely to affect the bile leak. History of Present Illness Reason for Consultation: Bile leak Requesting Physician: Negin NEWELL Attending Physician: Kaitlin Larson MD History of Present Illness 79yowm with h/o cholelithasis s/p CCY on 02/06/25 is seen today in ER by consultation from General surgery for concerns of biliary leak. Patient returned to ER on 02/07/25 with abdominal pain and fevers. He was started on broad spectrum antibiotics and General surgery was consulted. Patient underwent ERCP with stent placement 01/20/[address] Whitaker where a 10Fr biliary stent was placed..Then ana maria oswald with Dr. Almanza on 02/06/25. HIDA 02/09/25 was consistent with leak. Patient seen in ER this afternoon. He appears to be a poor historian as he can't remember why he returned to the ER. He has some abdominal pain when he presses around the trocar sites, but otherwise denies any abdominal pain. He denies N/V/D, melena or hematochezia. CBC 13.7g/dl, Hct 40.4%, WBC 15.07, Plt 283 k/ul Neutro 13.52 BMP largely unremarkable. BUN 31 Cr 1.35 T-Bili 0.9, AST 8, ALT 10, Alk Phos 38, Albumin 2.9 HIDA 02/09/[address] abd/pelvis 02/08/25 Lung bases: Subsegmental changes involving the lower lobes, right- [id number] are presumed compressive atelectasis. Pleural space: Layering bilateral pleural effusions remains small in volume, but are increased from the previous examination. No loculation. ABDOMEN: Liver: Unremarkable. No mass. Gallbladder and bile ducts: Status post cholecystectomy. The fluid collection in the mary hepatis is similar measuring 2.9 x 6 from 2.8 x 6 cm adjacent to the surgical clips. The small-caliber endoscopic silastic type stent in the common bile duct remains stable in position. No biliary dilatation with minimal pneumobilia, decreased in volume. Pancreas: Pancreas is stable in appearance with normal enhancement. No ductal dilation. Spleen: Unremarkable. No splenomegaly. Adrenals: Unremarkable. No mass. Kidneys and ureters: The kidneys are stable in appearance. Incidental cortical cysts. There is excreted contrast in the renal collecting systems, ureters and within the bladder. No hydronephrosis. Stomach and bowel: No bowel obstruction. No asymmetric bowel mucosal abnormality. Extensive diverticulosis of the descending and sigmoid colon. Evaluation for diverticulitis is limited. No appreciable alteration. There is new mucosal prominence of the stomach adjacent to the fluid collections. There appears to be duodenal edema, more prominent from the previous examination. PELVIS: Appendix: A normal-caliber appendix is noted along the medial aspect of the cecum in the right lower quadrant. Bladder: See above. No bladder wall thickening. Reproductive: Unremarkable as visualized. ABDOMEN and PELVIS: Intraperitoneal space: Similar scattered pneumoperitoneum. There is increased fluid in the superior abdomen with a collection now identified along the medial margin of the left lobe of the liver, measuring 8.6 x 7. 4 x 4.8 cm. There is also a collection along the fundus and proximal greater curvature of the stomach, measuring 2 cm in thickness and layering fluid along the posterior left hemidiaphragm. Trace perihepatic fluid, fluid in Morison's pouch and in the central pelvis are similar in volume. The fluid interposed between the hepatic flexure in the proximal duodenum is similar. Bones/joints: No acute fracture. No dislocation. Soft tissues: Unremarkable. Vasculature: Atherosclerotic disease. No abdominal aortic aneurysm. Lymph nodes: Unremarkable. No enlarged lymph nodes. Allergies Allergy/AdvReac Type Severity Reaction Status Date / Time cortisone Allergy Mild Cortisone Verified 02/06/25 09:03 cream ("made things worse") Home Medications Medication Instructions Recorded Confirmed Type albuterol sulfate 90 mcg/actuation 1 inh inhalation QID PRN sob 01/31/25 02/08/25 History aerosol inhaler amlodipine 2.5 mg tablet 2.5 mg PO QPM 01/31/25 02/08/25 History aspirin 81 mg tablet,delayed 81 mg PO QAM 01/31/25 02/08/25 History release cetirizine 10 mg capsule (Allergy 10 mg PO DAILY 01/31/25 02/08/25 History Relief (cetirizine)) cyanocobalamin (vitamin B-12) 1,000 mcg PO 4XWK 01/31/25 02/08/25 History 1,000 mcg capsule donepezil 10 mg tablet 10 mg PO HS 01/31/25 02/08/25 History fluticasone propionate 50 1 spray intranasal BID PRN 01/31/25 02/08/25 History mcg/actuation nasal Congestion spray,suspension hydrochlorothiazide 25 mg tablet 12.5 mg PO QAM 01/31/25 02/08/25 History lutein 25 mg-zeaxanthin 5 mg 1 cap PO HS 01/31/25 02/08/25 History capsule memantine 10 mg tablet 10 mg PO BID 01/31/25 02/08/25 History fluticasone 100 mcg-salmeterol 50 1 inh inhalation BID 02/06/25 02/08/25 History mcg/dose blistr powdr for inhalation (Advair Diskus) oxycodone-acetaminophen 5 mg-325 1 tab PO Q6H PRN pain #14 tabs 02/06/25 02/08/25 Rx mg tablet (Percocet) Patient History Medical History (Updated 02/09/25 @ 14:43 by Alfredo Espinoza PA-C) Bile leak Mild chronic obstructive pulmonary disease Per [place] [facility] records Dyslipidemia [place] [facility] [place] Coronary artery disease Per [place] [facility] [place] Nonobstructive CAD on 2021 cardiac cath 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 Arthritis Dementia " states will not leave alone because of safety" will be present DOS per PAT RN History of TIA (transient ischemic attack) 10+ years ago Hypertension Asthma Surgical History History of cardiac cath 2021 H/O colonoscopy with polypectomy History of anesthesia reaction ERCP; [facility] (01/20/25) > "Required inhaler" Anesthesia records scanned into chart: "Comments: Patient responded very well to the duo-nebulizer treatment; he is 96% SaO2, comfortable and essentially back to his baseline." History of knee replacement procedure of right knee History of tooth extraction History of tonsillectomy H/O bilateral cataract extraction History of ERCP (01/20/25) ERCP; [facility] Family History Other No family history of adverse response to anesthesia Social History Smoking Status: Former smoker Tobacco Type: Cigarettes Second Hand Exposure: No; Do You Dip or Chew Tobacco: No; Hx Alcohol Use: No Hx Substance Use: No Preferred Language: Namibian Communication Ability: Effective Avionics Installer Required: No Beliefs That Will Affect Care: None Current Living Situation: Spouse Current Living Situation Comment: + adult granddaughter Feels Safe at Home: Yes Assistive Devices: Cane and Walker Review of Systems Review of Systems: See HPI Physical Exam Physical Exam: Constitutional: NAD. Alert. Limited historian. Comfortable. Respiratory: Breathing is even, non-labored. Lungs nelson are clear to auscultation anteriorly. Cardiovascular: Regular Rate and Rhythm, no murmurs, rubs or gallops appreciated. Gastrointestinal (Abdomen): Normoactive bowel sounds x4, soft, non-distended. Mild ecchymosis and tenderness around trocar sites. No significant dehiscence or drainage appreciated. Musculoskeletal: Lying in bed comfortably. No peripheral edema. Results & Data Vital Signs (Past 12 Hours) Vital Signs Pulse Pulse Resp BP Pulse Ox O2 Del Method O2 Flow Rate 02/09/25 10:39 88 18 135/86 94 Room Air 02/09/25 08:32 89 02/09/25 06:07 98 H 18 151/86 H 94 Nasal Cannula 1 02/09/25 02:45 Nasal Cannula 1 02/09/25 02:45 97 H 22 132/68 93 Nasal Cannula 1 02/09/25 02:42 86 L Nasal Cannula 0 PG Care Time/CCT Total # of Minutes Spent Total Time Spent with Patient: Total time spent is greater than 50% in coordination of care (as documented) at patient's floor/unit and/or counseling patient: Coding Level of Care Code 81485 IN/OBS CONSULT LVL 3,45M Diagnoses Abdominal pain R10.9 Bile leak K83.9
--- NOTE | 2025-02-09 15:09 | Hospitalist Progress Note ---
Date of Service February 09, 2025 Assessment & Plan (1) Severe sepsis: Plan: Assessment and plan below following discussion of case with ED provider and reviewing patient history/pertinent normal/abnormal diagnostic test results. Severe sepsissecondary to bile leak from surgery site SIRS plus ARF on CKD plus lactic acidosis HIDA scan showed abnormal uptake migrating into the gallbladder fossa consistent with bile leak Has been on intravenous Zosyn and will continue for now Appreciate surgery and GI GI input and recommendation Clinically a little better and will continue current management Other significant medical conditions remain stable and are as below: Hypertension, stable hx PVD/TIA Asthma/COPD, stable NAFLD Dementia, mentation at baseline No acute delirium Conversing normally Hyperglycemia rule out DM Hemoglobin A1c minimally elevated at 5.8 Past tobacco abuse Check hemoglobin A1c DVT prophylaxis. SCDs RE possible procedure Full code Patient requesting update providers. Ms. Citlalli Elias, contact #[phone]. Admission and Anticipated Discharge Date Admission Date: February 08, 2025 Subjective 02/09/2025 Patient was seen and examined in emergency room He was admitted with progressing abdominal pain and noted to have bile leak from recent cholecystectomy site His pain is controlled now Denies any significant symptoms remains pleasantly confused from dementia Review of Systems Review of Systems: All systems reviewed and unremarkable except as noted below Physical Exam Physical Exam: Lying in bed with minimal distress due to abdominal discomfort Constitutional: well developed, well nourished, + ill appearing and + obese Eyes: PERRL, conjunctivae normal, anicteric sclerae ENMT: external ear and nose normal, oropharynx normal Neck: trachea midline, no thyromegaly Respiratory: + respiratory distress ( minimal respira tory distress at rest and requiring 2 L to maintain saturat) Auscultation: + diminished lung sounds and + crackles ( occasional crackles at the bases) Cardiovascular: Rate/Rhythm: regular rate and regular rhythm; not tachycardic Heart Sounds: normal S1 and normal S2; no murmur Extremities: + edema ( trace edema bilaterally) Gastrointestinal (Abdomen): Inspection/Auscultation: + abdomen distended and normal bowel sounds Percussion/Palpation: + abdomen tender ( right upper quadrant) and abdomen soft Musculoskeletal: no acute arthritis involving any of the joint Neurologic: normal touch/pain/proprioception and moves all extremities; no focal motor deficits Lymphatic: no cervical or axillary lymphadenopathy Results & Data Results & Data Vital Signs (Past 12 Hours) Vital Signs Pulse Pulse Resp BP Pulse Ox O2 Del Method O2 Flow Rate 02/09/25 14:48 95 H 18 151/85 H 93 Nasal Cannula 2 02/09/25 13:17 87 20 144/90 H 95 Room Air 02/09/25 10:39 88 18 135/86 94 Room Air 02/09/25 08:32 89 02/09/25 06:07 98 H 18 151/86 H 94 Nasal Cannula 1 Laboratory Results Short CBC 02/08/25 02/09/25 Range/Units 21:20 03:56 WBC 16.09 H 15.07 H (4.8-10.8) K/ul Hgb 15.0 13.7 L (14.0-18.0) g/dl Hct 44.0 40.4 L (42.0-52.0) % Plt Count 283 283 (130-400) K/uL BMP 02/08/25 02/09/25 21:20 03:56 Sodium 138 139 Potassium 3.8 3.9 Chloride 105 108 H Carbon Dioxide 23 23 BUN 35 H 31 H Creatinine 1.48 H 1.35 Glucose 124 H 121 H Calcium 8.9 8.3 L Liver Function 02/08/25 02/09/25 Range/Units 21:20 03:56 Total Bilirubin 1.2 H 0.9 (0.2-1.0) mg/dl Direct Bilirubin 0.2 (0-0.2) mg/dl AST 21 18 (13-39) U/L ALT 12 10 (7-52) U/L Alkaline Phosphatase 38 38 (34-104) U/L Albumin 3.4 2.9 L (3.4-5.0) gm/dl Urine 02/08/25 Range/Units 21:27 Urine Color Yellow Urine Appearance Clear (Clear) Urine pH 6.0 (4.5-7.5) Ur Specific [place] > 1.045 H (1.000-1.030) Urine Protein 2+ H (Negative) Urine Glucose (UA) Negative (Negative) Medications Administered Current Inpatient Medications Acetaminophen (Acetaminophen 325 Mg Tab) 650 mg PO QID PRN PRN Reason: pain/fever Stop: 03/10/25 23:29 Donepezil HCl (Donepezil Hcl 10 Mg Tab) 10 mg PO HS [facility]ON Stop: 03/11/25 20:59 Fluticasone/Vilanterol (Fluticasone/Vilanterol 100/25mcg 14 Puffs/Inhaler) 1 puffs INH DAILY [facility] Stop: 03/11/25 08:59 Last Admin: 02/09/25 10:33 Dose: Not Given Hydromorphone HCl (Hydromorphone Inj 0.5 Mg/0.5 Ml Syr) 0.5 mg IV Q4H PRN PRN Reason: Pain Stop: 02/22/25 23:29 Last Admin: 02/09/25 07:28 Dose: 0.5 mg Promethazine HCl (Phenergan) 6.25 mg in 50.25 mls @ 201 mls/hr IV Q6H PRN PRN Reason: Nausea And Vomiting Stop: 03/10/25 23:29 Piperacillin Sod/Tazobactam Sod (Zosyn) 4.5 gm in 100 mls @ 25 mls/hr IV Q8H SHANNON; Protocol Stop: 02/19/25 03:59 Last Admin: 02/09/25 12:21 Dose: 25 mls/hr Potassium Chloride 20 meq/ (Lactated Ringer's) 1,010 mls @ 100 mls/hr IV .Q10H6M [facility] Stop: 02/10/25 00:44 Last Admin: 02/09/25 11:45 Dose: 100 mls/hr Memantine (Memantine Hcl 10 Mg Tab) 10 mg PO BID [facility] Stop: 03/11/25 08:59 Last Admin: 02/09/25 10:34 Dose: 10 mg Oxycodone HCl (Oxycodone Hcl Ir 5 Mg Tab (Immediate Release)) 5 mg PO Q4H PRN PRN Reason: Pain Stop: 02/22/25 23:29
[2025-02-09] MEDS ORDERED: PHA DELIRIUM CONSULT PRN ×2 (17:51)
[2025-02-09] MEDS: ACETAMINOPHEN 325 MG TAB PO PRN (21:28)
[2025-02-09] MEDS: DONEPEZIL HCL 10 MG TAB PO SCH (21:28)
[2025-02-10] MEDS: NSS + 20MEQ KCL 20 MEQ/1,000 ML BAG IV SCH (01:55)
[2025-02-10 07:15] LABS: Hematocrit (blood only) 39.0 % (42.0-52.0); Hemoglobin 13.0 g/dl (14.0-18.0); Mean Corpuscular Hemoglobin 29.7 pg (25.0-34.0); Mean Corpuscular Volume 89.2 fL (80.0-100.0); Platelet Count 289 K/uL (130-400); RDW Standard Deviation 47.2 fL (36.4-46.3); Red Blood Count 4.37 M/uL (4.70-6.10)
[2025-02-10 07:30] LABS: Alanine Aminotransferase 10.0 U/L (7-52); Albumin Globulin Ratio 1.1 (0.9-2); Alkaline Phosphatase 45.0 U/L (34-104); Anion Gap 7.0 (3-11); Bilirubin,Total 1.2 mg/dl (0.2-1.0); Blood Urea Nitrogen 29.0 mg/dl (6-23); Calcium 8.5 mg/dl (8.6-10.3); Carbon Dioxide 26.0 mmol/L (21-32); Chloride 108.0 mmol/L (98-107); Creatinine Clr Calc Pharmacy 51.2 ml/min; Globulin 2.6 gm/dl (2.5-4.0); Glucose 104.0 mg/dl (70-99(Fasting)); Potassium 3.8 mmol/L (3.5-5.1); Sodium 141.0 mmol/L (136-145); Total Protein 5.5 gm/dl (6.0-8.3)
[2025-02-10 07:49] LABS: Dohle Bodies 1+; Immature Granulocytes # (auto) 0.14 K/uL (0.01-0.20); Immature Granulocytes % (auto) 0.7 %; White Blood Count 19.78 K/ul (4.8-10.8)
[2025-02-10] MEDS: ALBUT/IPRATROP 3MG/0.5MG NEB 3 ML VIAL NEB PRN (09:50)
[2025-02-10] MEDS: ALBUT/IPRATROP 3MG/0.5MG NEB 3 ML VIAL ONE (09:52)
--- NOTE | 2025-02-10 11:19 | Gastroenterology Progress Note ---
Date of Service February 10, 2025 Assessment & Plan (1) Bile leak: Plan 79yowm with h/o cholelithiasis s/p ERCP with stent placement on 01/20/25 and laparoscopic cholecystectomy 02/06/25 is seen today for concerns of bile leak. (1) Bile Leak - HIDA scan, CT abd/pelvis, OR notes and ERCP reviewed with Dr. Trujillo. 10Fr stent appears to be in adequate location. - LFTs continue to remains relatively normal. - Recommend IR to help drainage anterior abdomen collection. - We'll obtain an MRCP today to assess for significant CBD injury. - Otherwise continue with antibiotics and supportive care from General surgery and Primary care team. - Further recommendations to come with MRCP. - Further recommendations to come with Supervising GI provider on medical rounds. Please see co-signature comments. Admission and Anticipated Discharge Date Admission Date: February 08, 2025 Supervising Physician Co-Signing Physician Notes Bile leak. The patient has an indwelling 10 Croatian stent. Review of imaging studies today and yesterday suggest stent maintains good position. HIDA scan showed flow into the duodenum. 10 Croatian is the largest stent diameter that we use. Trying to position stent proximal to the cystic duct does not usually alter management of a bile leak. Most important is traversing the biliary sphincter. Stents often migrate distally at any rate. Drain in place with bile within it. I would persist with this therapy. MRCP did not show obvious bile duct injury. Some artifact. Will follow. I expect with time and drainage of the biloma patient should improve. Subjective 79yowm with h/o cholelithasis s/p CCY on 02/06/25 is seen today in ER by consultation from General surgery for concerns of biliary leak. Patient returned to ER on 02/07/25 with abdominal pain and fevers. He was started on broad spectrum antibiotics and General surgery was consulted. Patient underwent ERCP with stent placement 01/20/[address] Whitaker where a 10Fr biliary stent was placed..Then ana maria oswald with Dr. Almanza on 02/06/25. HIDA 02/09/25 was consistent with leak.Patient seen in ER yesterday wtih Dr. Trujillo, GI. It was recommended to leave stent in place and refer to IR to allow fluid to resolve in anterior abdomen. Today patient symptoms have relatively unchanges. Patient is not a great historian. Denies abdominal pain but does report some tenderness in epigastric area on exam. No vomiting - remains NPO. No N/V/D, melena or hematochezia. CBC 02/09/25 - CBC 13.7g/dl, Hct 40.4%, WBC 15.07, Plt 283 k/ul Neutro 13.52 => CBC 02/10/25 - Hgb 13, Hct 39, WBC 20, Plt 289, Cr 1.34, LFT normal except T- bili 1.2 HIDA 02/09/[address] abd/pelvis 02/08/25 Lung bases: Subsegmental changes involving the lower lobes, right- [id number] are presumed compressive atelectasis. Pleural space: Layering bilateral pleural effusions remains small in volume, but are increased from the previous examination. No loculation. ABDOMEN: Liver: Unremarkable. No mass. Gallbladder and bile ducts: Status post cholecystectomy. The fluid collection in the mary hepatis is similar measuring 2.9 x 6 from 2.8 x 6 cm adjacent to the surgical clips. The small-caliber endoscopic silastic type stent in the common bile duct remains stable in position. No biliary dilatation with minimal pneumobilia, decreased in volume. Pancreas: Pancreas is stable in appearance with normal enhancement. No ductal dilation. Spleen: Unremarkable. No splenomegaly. Adrenals: Unremarkable. No mass. Kidneys and ureters: The kidneys are stable in appearance. Incidental cortical cysts. There is excreted contrast in the renal collecting systems, ureters and within the bladder. No hydronephrosis. Stomach and bowel: No bowel obstruction. No asymmetric bowel mucosal abnormality. Extensive diverticulosis of the descending and sigmoid colon. Evaluation for diverticulitis is limited. No appreciable alteration. There is new mucosal prominence of the stomach adjacent to the fluid collections. There appears to be duodenal edema, more prominent from the previous examination. PELVIS: Appendix: A normal-caliber appendix is noted along the medial aspect of the cecum in the right lower quadrant. Bladder: See above. No bladder wall thickening. Reproductive: Unremarkable as visualized. ABDOMEN and PELVIS: Intraperitoneal space: Similar scattered pneumoperitoneum. There is increased fluid in the superior abdomen with a collection now identified along the medial margin of the left lobe of the liver, measuring 8.6 x 7. 4 x 4.8 cm. There is also a collection along the fundus and proximal greater curvature of the stomach, measuring 2 cm in thickness and layering fluid along the posterior left hemidiaphragm. Trace perihepatic fluid, fluid in Morison's pouch and in the central pelvis are similar in volume. The fluid interposed between the hepatic flexure in the proximal duodenum is similar. Bones/joints: No acute fracture. No dislocation. Soft tissues: Unremarkable. Vasculature: Atherosclerotic disease. No abdominal aortic aneurysm. Lymph nodes: Unremarkable. No enlarged lymph nodes. Review of Systems Review of Systems: See HPI Physical Exam Physical Exam: Constitutional: NAD. Alert. Answering questions appropriately. Respiratory: Breathing is even, non-labored. Lungs nelson are clear to auscultation anteriorly. Cardiovascular: Regular Rate and Rhythm, no murmurs, rubs or gallops appreciated. Gastrointestinal (Abdomen): Normoactive bowel sounds x4, soft, non-distended. Mild epigastric tenderness. No guarding or rebound tenderness. Musculoskeletal: Lying in bed comfortably. No peripheral edema. Results & Data Results & Data Vital Signs (Past 12 Hours) Vital Signs Temp Pulse Pulse Resp BP BP Pulse Ox 02/10/25 09:50 80 18 95 02/10/25 08:46 98.8 F 75 16 159/82 H 95 02/10/25 07:50 02/10/25 05:46 84 02/10/25 03:51 98.1 F 85 18 147/75 H 95 02/09/25 23:39 O2 Del Method O2 Flow Rate 02/10/25 09:50 Nasal Cannula 2 02/10/25 08:46 Nasal Cannula 2 02/10/25 07:50 Nasal Cannula 2 02/10/25 05:46 02/10/25 03:51 Nasal Cannula 2 02/09/25 23:39 Nasal Cannula 2 PG Care Time/CCT Total # of Minutes Spent Total Time Spent with Patient: Total time spent is greater than 50% in coordination of care (as documented) at patient's floor/unit and/or counseling patient: Coding Level of Care Code 49738 SUB INP/OBS CARE 2/35MIN Diagnoses Bile leak K83.9
--- NOTE | 2025-02-10 11:51 | Hospitalist Progress Note ---
Date of Service February 10, 2025 Assessment & Plan (1) Severe sepsis: Plan: Assessment and plan below following discussion of case with ED provider and reviewing patient history/pertinent normal/abnormal diagnostic test results. Severe sepsisSepsis following cholecystectomy, due to possible postoperative abscess or bile leak SIRS plus ARF on CKD plus lactic acidosis HIDA scan showed abnormal uptake migrating into the gallbladder fossa consistent with bile leak Has been on intravenous Zosyn and will continue for now Appreciate surgery and GI GI input and recommendation Complains to have more pain in abdomen and especially right upper quadrant without any fever and/or chills Noted to have some shortness of breath this morning as well His white count is elevated likely secondary to ongoing bile leak Scheduled for IR drainage today and also MRCP to evaluate leak further Will continue n.p.o. for now and intravenous antibiotic Depending on the MRCP he may need to go for ERCP- discussed with the family members Other significant medical conditions remain stable and are as below: Hypertension, stable hx PVD/TIA Asthma/COPD, stable NAFLD Dementia, mentation at baseline No acute delirium Conversing normally Hyperglycemia rule out DM Hemoglobin A1c minimally elevated at 5.8 Past tobacco abuse Check hemoglobin A1c DVT prophylaxis. SCDs RE possible procedure Full code Patient requesting update providers. Ms. Citlalli Elias, contact #[phone]. Admission and Anticipated Discharge Date Admission Date: February 08, 2025 Subjective 02/09/2025 Patient was seen and examined in emergency room He was admitted with progressing abdominal pain and noted to have bile leak from recent cholecystectomy site His pain is controlled now Denies any significant symptoms remains pleasantly confused from dementia 02/10/2025 The patient was seen and examined in medical telemetry unit He has not been feeling well and complains of right upper quadrant/abdominal pain without nausea no vomiting Denies any chest pain and no palpitation and no fever no chills Review of Systems Review of Systems: All systems reviewed and unremarkable except as noted below Physical Exam Physical Exam: Lying in bed with minimal distress due to abdominal discomfort Constitutional: well developed, well nourished, + ill appearing and + obese Eyes: PERRL, conjunctivae normal, anicteric sclerae ENMT: external ear and nose normal, oropharynx normal Neck: trachea midline, no thyromegaly Respiratory: + respiratory distress ( minimal respira tory distress at rest and requiring 2 L to maintain saturat) Auscultation: + diminished lung sounds and + crackles ( occasional crackles at the bases) Cardiovascular: Rate/Rhythm: regular rate and regular rhythm; not tachycardic Heart Sounds: normal S1 and normal S2; no murmur Extremities: + edema ( trace edema bilaterally) Gastrointestinal (Abdomen): Inspection/Auscultation: + abdomen distended and normal bowel sounds Percussion/Palpation: + abdomen tender ( right upper quadrant) and abdomen soft Musculoskeletal: No acute arthritis involving any of the joint Neurologic: normal touch/pain/proprioception and moves all extremities; no focal motor deficits Lymphatic: no cervical or axillary lymphadenopathy Results & Data Results & Data Vital Signs (Past 12 Hours) Vital Signs Temp Pulse Pulse Resp BP BP Pulse Ox 02/10/25 11:43 36.6 C 87 20 142/72 H 93 02/10/25 09:50 80 18 95 02/10/25 08:46 37.1 C 75 16 159/82 H 95 02/10/25 07:50 02/10/25 05:46 84 02/10/25 03:51 36.7 C 85 18 147/75 H 95 O2 Del Method O2 Flow Rate 02/10/25 11:43 Nasal Cannula 2 02/10/25 09:50 Nasal Cannula 2 02/10/25 08:46 Nasal Cannula 2 02/10/25 07:50 Nasal Cannula 2 02/10/25 05:46 02/10/25 03:51 Nasal Cannula 2 Laboratory Results Short CBC 02/10/25 Range/Units 06:31 WBC 19.78 H (4.8-10.8) K/ul Hgb 13.0 L (14.0-18.0) g/dl Hct 39.0 L (42.0-52.0) % Plt Count 289 (130-400) K/uL BMP 02/10/25 06:31 Sodium 141 Potassium 3.8 Chloride 108 H Carbon Dioxide 26 BUN 29 H Creatinine 1.34 Glucose 104 H Calcium 8.5 L Liver Function 02/10/25 Range/Units 06:31 Total Bilirubin 1.2 H (0.2-1.0) mg/dl AST 18 (13-39) U/L ALT 10 (7-52) U/L Alkaline Phosphatase 45 (34-104) U/L Albumin 2.9 L (3.4-5.0) gm/dl Medications Administered Current Inpatient Medications Acetaminophen (Acetaminophen 325 Mg Tab) 650 mg PO QID PRN PRN Reason: pain/fever Stop: 03/10/25 23:29 Last Admin: 02/09/25 21:28 Dose: 650 mg Albuterol (Albut/Ipratrop 3mg/0.5mg Neb 3 Ml Vial) 3 ml NEB Q6R PRN; Protocol PRN Reason: sob Stop: 03/12/25 09:31 Last Admin: 02/10/25 09:50 Dose: 3 ml Donepezil HCl (Donepezil Hcl 10 Mg Tab) 10 mg PO HS [facility] Stop: 03/11/25 20:59 Last Admin: 02/09/25 21:28 Dose: 10 mg Fluticasone/Vilanterol (Fluticasone/Vilanterol 100/25mcg 14 Puffs/Inhaler) 1 puffs INH DAILY [facility] Stop: 03/11/25 08:59 Last Admin: 02/10/25 07:47 Dose: 1 puffs Hydromorphone HCl (Hydromorphone Inj 0.5 Mg/0.5 Ml Syr) 0.5 mg IV Q4H PRN PRN Reason: Pain Stop: 02/22/25 23:29 Last Admin: 02/10/25 10:19 Dose: 0.5 mg Promethazine HCl (Phenergan) 6.25 mg in 50.25 mls @ 201 mls/hr IV Q6H PRN PRN Reason: Nausea And Vomiting Stop: 03/10/25 23:29 Piperacillin Sod/Tazobactam Sod (Zosyn) 4.5 gm in 100 mls @ 25 mls/hr IV Q8H [facility]; Protocol Stop: 02/19/25 03:59 Last Admin: 02/10/25 14:51 Dose: 25 mls/hr Potassium Chloride/Sodium Chloride (Normal Saline W/20 Meq Kcl) 20 meq in 1,000 mls @ 100 mls/hr IV .Q10H [facility] Stop: 02/11/25 01:29 Last Admin: 02/10/25 14:51 Dose: 100 mls/hr Memantine (Memantine Hcl 10 Mg Tab) 10 mg PO BID [facility] Stop: 03/11/25 08:59 Last Admin: 02/10/25 07:47 Dose: 10 mg Oxycodone HCl (Oxycodone Hcl Ir 5 Mg Tab (Immediate Release)) 5 mg PO Q4H PRN PRN Reason: Pain Stop: 02/22/25 23:29 Last Admin: 02/10/25 07:54 Dose: 5 mg
--- NOTE | 2025-02-10 14:20 | Magnetic Resonance Report ---
MR MRCP HISTORY: 79 years-old Male bile leak. Evaluate Common Bile duct millicuries quadrant abdominal pain COMPARISON: CT abdomen and pelvis 02/08/2025, hepatobiliary study 02/09/2025 TECHNIQUE: MRCP was obtained without IV contrast utilizing institutional protocol FINDINGS: Motion degraded exam. Layering pleural effusions with dependent consolidation/atelectasis redemonstra lg. Cardiomegaly with trace pericardial effusion. Unremarkable spleen, visualized pancreas and adrenal glands. The liver is also unremarkable. Subcenti meter probable cyst of the inferior right hepatic lobe on image 26 series 3. There is no hydronephros is. There are a few cysts the kidneys redemonstrated measuring up to 3.6 cm. No abdominal aortic aneu rysm. Borderline enlarged periportal lymph nodes. Wall thickening of the distal stomach, duodenum and hepatic flexure redemonstrated. Unremarkable soft tissues and osseous structures with degenerative c hanges of the spine. Surgical clips from prior cholecystectomy are noted. 11 cm fluid collection within the midline epigas tric upper abdomen redemonstrated measuring up to approximately 11 cm in transverse dimension on imag e 11 series 2 which is similar to prior CT. This is again noted to abut the adjacent stomach and left hepatic lobe. Additional stable 7 cm fluid collection within the mary hepatis/inferior right hepati c lobe. Air within the mary hepatis is also again noted. Evaluation of the biliary tree is limited s econdary to persistent common bile duct stent. The mary hepatis fluid collection appears to be ana guous with the cystic duct remnant. The common bile duct measures up to 8 mm. No definite choledochol ithiasis identified. No pancreatic ductal dilation or evidence of pancreatic divisum. IMPRESSION: 1. Study is degraded by respiratory motion artifact and evaluation of the biliary tree is limited sec ondary to persistent stent placement within the common bile duct and associated pneumobilia. 2. Status post cholecystectomy with unchanged air and fluid-filled collection within the mary hepati s and larger fluid collection within the midline upper epigastric abdomen measuring up to 11 cm. Thes e are compatible with bilomas. 3. The mary hepatic fluid collection appears to be contiguous with the cystic duct remnant. 4. Layering pleural effusions with bibasilar consolidation/atelectasis redemonstrated. 5. Likely reactive wall thickening of the distal stomach, duodenum and hepatic flexure again seen. ACT 112: Negative or not required by law. The above report was generated using voice recognition software. It may contain grammatical, syntax o r spelling errors. Electronically signed by: Benedict Randhawa M.D. 02/10/2025 2:18 PM
--- NOTE | 2025-02-10 14:49 | CT Scan Report ---
CT guided anterior abdominal fluid collection drain placement INDICATION: Biloma PROCEDURE: Procedure and risks were explained. Informed consent was obtained. A final timeout was com pleted. The patient was placed in a supine position on the CT exam table. The anterior abdomen was pr epped and draped in sterile fashion. 1% lidocaine was utilized for skin anesthesia. Utilizing CT guidance, an 18-gauge Chiba needle was advanced into the anterior abdominal fluid collec tion. A 0.035 Amplatz wire was introduced through the entry needle and exchanged for a locking 8 Fren ch pigtail catheter. Approximately 20 mL of bilious fluid was aspirated and sent to the lab for cristina sis. The catheter was sutured to the skin with 2-0 Prolene and placed to suction bag drainage. Post-C T imaging demonstrated adequate catheter position. The patient tolerated the procedure well. Vital si gns will be monitored postprocedure. IMPRESSION: Anterior abdominal fluid collection drain placement as above. Performed, dictated, and signed by Sánchez Rodney PA-C; to be co-signed by Dr. Poncho Soliman. Electronically signed by: Poncho Soliman M.D. 02/10/2025 4:38 PM
--- NOTE | 2025-02-10 15:01 | Surgery Progress Note ---
Date of Service February 10, 2025 Assessment & Plan (1) Post-operative complication: Plan: bile leak consider re-evaluation of biliary stent and new placement MRCP IR drainage if possible Admission and Anticipated Discharge Date Admission Date: February 08, 2025 Subjective pain much improved hungry Review of Systems Constitutional: no fever and no chills Cardiovascular: + chest pain Gastrointestinal: + abdominal pain; no nausea and no vomit ing Neurologic: + generalized weakness Psychiatric: no behavioral changes Physical Exam Constitutional: WD/WN, vitals as above Respiratory: no respiratory distress Cardiovascular: Rate/Rhythm: regular rate and regular rhythm Gastrointestinal (Abdomen): Inspection/Auscultation: abdomen normal to inspection and + abdomen distended Percussion/Palpation: + abdomen tender and abdomen soft Results & Data Vital Signs (Past 12 Hours) Vital Signs Temp Pulse Pulse Resp BP BP Pulse Ox 02/10/25 11:43 36.6 C 87 20 142/72 H 93 02/10/25 09:50 80 18 95 02/10/25 08:46 37.1 C 75 16 159/82 H 95 02/10/25 07:50 02/10/25 05:46 84 02/10/25 03:51 36.7 C 85 18 147/75 H 95 O2 Del Method O2 Flow Rate 02/10/25 11:43 Nasal Cannula 2 02/10/25 09:50 Nasal Cannula 2 02/10/25 08:46 Nasal Cannula 2 02/10/25 07:50 Nasal Cannula 2 02/10/25 05:46 02/10/25 03:51 Nasal Cannula 2
[2025-02-11] MEDS: POTASSIUM CHLORIDE CRTAB 20 MEQ TABCR PO STA (05:01)
[2025-02-11 06:47] LABS: Alanine Aminotransferase 16.0 U/L (7-52); Albumin Globulin Ratio 1.0 (0.9-2); Alkaline Phosphatase 51.0 U/L (34-104); Anion Gap 5.0 (3-11); Bilirubin,Total 1.2 mg/dl (0.2-1.0); Blood Urea Nitrogen 28.0 mg/dl (6-23); Calcium 8.3 mg/dl (8.6-10.3); Carbon Dioxide 27.0 mmol/L (21-32); Chloride 108.0 mmol/L (98-107); Creatinine Clr Calc Pharmacy 54.7 ml/min; Globulin 2.8 gm/dl (2.5-4.0); Glucose 99.0 mg/dl (70-99(Fasting)); Magnesium 1.9 mg/dl (1.7-2.4); Potassium 3.8 mmol/L (3.5-5.1); Sodium 140.0 mmol/L (136-145); Total Protein 5.5 gm/dl (6.0-8.3)
[2025-02-11 06:49] LABS: Anion Gap 6.0 (3-11); Blood Urea Nitrogen 29.0 mg/dl (6-23); Calcium 8.2 mg/dl (8.6-10.3); Carbon Dioxide 25.0 mmol/L (21-32); Chloride 108.0 mmol/L (98-107); Creatinine Clr Calc Pharmacy 57.4 ml/min; Glucose 97.0 mg/dl (70-99(Fasting)); Magnesium 1.9 mg/dl (1.7-2.4); Potassium 3.8 mmol/L (3.5-5.1); Sodium 139.0 mmol/L (136-145)
--- NOTE | 2025-02-11 06:50 | XRay Report ---
EXAM: XR chest 1V portable CLINICAL HISTORY: sob TECHNIQUE: Radiograph of chest was acquired. COMPARISON: None. FINDINGS: There is blunting of left costophrenic angle with haziness in bilateral lower zones. A ring opacity is seen in the left upper zone. Rest of the lungs are clear. The cardiomediastinal silhouette is within normal limits. No acute osseous abnormality. IMPRESSION: 1. Mild bilateral pleural effusion. 2. Ring opacity in left upper zone - suggestive of a cavitation. Advise HRCT chest for further evaluation. Electronically signed by Palomo Rosado 02-11-2025 06:50 AM
--- NOTE | 2025-02-11 07:03 | XRay Report ---
EXAM: XR KUB/Abdomen 1 view CLINICAL HISTORY: check bilary stent and drain positions TECHNIQUE: Radiograph of kub/abdomen was acquired. COMPARISON: None. FINDINGS: Surgical yury are seen in the right upper quadrant. A drain is seen in the right upper quadrant with tip in the subhepatic region. Non-obstructive, non-specific bowel gas pattern. No significant air fluid levels. No evidence of air under diaphragm. No obvious organomegaly. Bony shadows appear unremarkable. IMPRESSION: 1. Surgical yury in right upper quadrant. 2. Drain in right upper quadrant with tip in subhepatic region. Electronically signed by Palomo Rosado 02-11-2025 07:02 AM
[2025-02-11 07:14] LABS: Hematocrit (blood only) 39.3 % (42.0-52.0); Hemoglobin 12.9 g/dl (14.0-18.0); Mean Corpuscular Hemoglobin 29.6 pg (25.0-34.0); Mean Corpuscular Volume 90.1 fL (80.0-100.0); Platelet Count 279 K/uL (130-400); RDW Standard Deviation 48.3 fL (36.4-46.3); Red Blood Count 4.36 M/uL (4.70-6.10); White Blood Count 17.79 K/ul (4.8-10.8)
[2025-02-11 07:48] LABS: Dohle Bodies 1+; Immature Granulocytes # (auto) 1.20 K/uL (0.01-0.20); Immature Granulocytes % (auto) 6.7 %
--- NOTE | 2025-02-11 08:03 | Communication Note ---
Date of Service: February 11, 2025 4:45 AM Patient with NSVT as per RN. Patient later noted to be SOB No chest pain. No abdominal pain. Chest x-ray 1. Mild bilateral pleural effusion. 2. Ring opacity in left upper zone - suggestive of a cavitation. AP SOB possible pulmonary congestion, bilateral pleural effusion Possible cavitation left upper lung NSVT Lasix [address] chest Supplement potassium and magnesium Initiate beta-zheng if with recurrence
[2025-02-11] MEDS: ALBUT/IPRATROP 3MG/0.5MG NEB 3 ML VIAL NEB STA (08:20)
--- NOTE | 2025-02-11 09:06 | Communication Note ---
Date of Service: February 11, 2025 kub, drain and stent look to be in proper positions 250 out dRAIN... Follow CLINICAL COURSE AND DRAIN OUTPUTS. if not decreasing could consider ercp, stent change. 10 F stent palced less than 1 month and lfts near normal, this with hida showing doudennal activity ..... patent stent
[2025-02-11] MEDS: POT PHOSPHATE MONOBASIC W/ SOD TAB PO SCH (10:31)
--- NOTE | 2025-02-11 10:36 | Surgery Progress Note ---
Date of Service February 11, 2025 Assessment & Plan (1) Cholelithiasis: Plan: Patient here with h/o ERCP/biliary stenting then s/p lap darek now here w/ abdominal collection c/f bile leak WBC 17 (19). Tb 1.2(1.2), other LFTs within normal limits he is s/p IR drainage of presumed biloma yesterday; cx growing klebsiella continue abx may advance to fulls As above. Doing okay. Currently no drainage in the drain bag. Monitor labs. Will continue to follow Admission and Anticipated Discharge Date Admission Date: February 08, 2025 Subjective Patient doing okay. Wants more to eat. + abdominal pain Physical Exam Physical Exam: awake, no distress Gastrointestinal (Abdomen): surgical incisions c/d/i with dermabond. IR drain in place with no significant fluid in bag Results & Data Vital Signs (Past 12 Hours) Vital Signs Temp Pulse Pulse Resp BP BP Pulse Ox 02/11/25 08:23 97.7 F 77 16 165/70 H 96 02/11/25 08:20 80 20 92 02/11/25 02:58 97.7 F 81 20 150/79 H 95 02/11/25 00:00 83 02/11/25 00:00 Pulse Ox O2 Del Method O2 Del Method O2 Flow Rate O2 Flow Rate 02/11/25 08:23 Room Air 02/11/25 08:20 Nasal Cannula 2 02/11/25 02:58 Nasal Cannula 2 02/11/25 00:00 02/11/25 00:00 95 Nasal Cannula 2 PG Care Time/CCT Total # of Minutes Spent Total Time Spent with Patient: Total time spent is greater than 50% in coordination of care (as documented) at patient's floor/unit and/or counseling patient: Coding Level of Care Code 07085 SUB INP/OBS CARE 07/23MIN Diagnoses Cholelithiasis K80.20
[2025-02-11] MEDS: MAGNESIUM SULFATE / D5W 1 GM/100 ML BAG IV ONE (10:49)
[2025-02-11] MEDS: OPTIRAY 320 125ml IV ONE (11:48)
--- NOTE | 2025-02-11 13:04 | CT Scan Report ---
Clinical history: Shortness of breath Technique: Axial computed tomography images were obtained of the chest after the administration of intravenous contrast according to the CT angiogram protocol No prior CT is available for comparison Findings: There is no definite sign of pulmonary embolism. There are small bilateral pleural effusions. There is bilateral lower lobe atelectasis. There is no pneumothorax. There is no sign of pulmonary fibrosis or other diffuse interstitial process. No endobronchial lesion is seen There is no mediastinal, hilar, or axillary adenopathy. The thoracic aorta appears unremarkable with no sign of aneurysm or dissection. There is no pericardial effusion There is a percutaneous drain in the epigastric area. The gallbladder has been removed. There is a common bile duct stent. There is a fluid collection in the gallbladder fossa. There is a collection of fluid and air adjacent to the hepatic flexure of the colon. There is also a fluid collection along the greater curvature of the stomach. There is a small amount of free intraperitoneal air No fracture is seen. No focal osseous lesion is evident Impression: 1. No definite sign of pulmonary embolism 2. Bilateral lower lobe atelectasis 3. Small bilateral pleural effusions 4. Percutaneous drain in the epigastric area, small amount of free intraperitoneal air, fluid collection in the gallbladder fossa, CBD stent, perigastric fluid collection, and collection of fluid and air adjacent to the hepatic flexure of the colon. If clinically indicated, CT of the abdomen and pelvis could be obtained ACT 112: Positive. There are findings on this exam that require communication between the performing entity and the patient following Patient Test Result Information Act ([place] ACT 112) guidelines Electronically signed by Juan Perdomo 02-11-2025 13:02 PM
--- NOTE | 2025-02-11 13:23 | Hospitalist Progress Note ---
Date of Service February 11, 2025 Assessment & Plan (1) Severe sepsis: Plan: Assessment and plan below following discussion of case with ED provider and reviewing patient history/pertinent normal/abnormal diagnostic test results. Severe sepsisSepsis following cholecystectomy, due to possible postoperative abscess or bile leak SIRS plus ARF on CKD plus lactic acidosis HIDA scan showed abnormal uptake migrating into the gallbladder fossa consistent with bile leak Has been on intravenous Zosyn and will continue for now Appreciate surgery and GI GI input and recommendation Complains to have more pain in abdomen and especially right upper quadrant without any fever and/or chills Noted to have some shortness of breath this morning as well His white count is elevated likely secondary to ongoing bile leak Scheduled for IR drainage today and also MRCP to evaluate leak further Will continue n.p.o. for now and intravenous antibiotic Depending on the MRCP he may need to go for ERCP- discussed with the family members MRCP showed unchanged air and fluid collection within the mary hepatis and large fluid collection within the medial upper epigastric abdomen measuring up to 11 cm Status post intra-abdominal fluid collection drain placement and drain so for 250 mL of fluid CTA did not show any pulmonary embolism He has been feeling little better and will continue current management Will advance diet as tolerated to full liquid Other significant medical conditions remain stable and are as below: Hypertension, stable hx PVD/TIA Asthma/COPD, stable NAFLD Dementia, mentation at baseline No acute delirium Conversing normally Hyperglycemia rule out DM Hemoglobin A1c minimally elevated at 5.8 Past tobacco abuse Check hemoglobin A1c DVT prophylaxis. SCDs RE possible procedure Full code Patient requesting update providers. Moni Citlalli Elias, contact #[phone]. Admission and Anticipated Discharge Date Admission Date: February 08, 2025 Subjective 02/09/2025 Patient was seen and examined in emergency room He was admitted with progressing abdominal pain and noted to have bile leak from recent cholecystectomy site His pain is controlled now Denies any significant symptoms remains pleasantly confused from dementia 02/10/2025 The patient was seen and examined in medical telemetry unit He has not been feeling well and complains of right upper quadrant/abdominal pain without nausea no vomiting Denies any chest pain and no palpitation and no fever no chills 02/11/2025 The patient was seen and examined in medical telemetry unit in presence of the He has been feeling a little better since IR procedure with intra-abdominal drainage tube placement Still has abdominal pain with nausea but tolerating diet No fever no chills but the white count remains elevated Review of Systems Review of Systems: All systems reviewed and unremarkable except as noted below Physical Exam Physical Exam: Lying in bed with minimal distress due to abdominal discomfort Constitutional: well developed, well nourished, + ill appearing and + obese Eyes: PERRL, conjunctivae normal, anicteric sclerae ENMT: external ear and nose normal, oropharynx normal Neck: trachea midline, no thyromegaly Respiratory: + respiratory distress ( minimal respira tory distress at rest and requiring 2 L to maintain saturat) Auscultation: + diminished lung sounds and + crackles ( occasional crackles at the bases) Cardiovascular: Rate/Rhythm: regular rate and regular rhythm; not tachycardic Heart Sounds: normal S1 and normal S2; no murmur Extremities: + edema ( trace edema bilaterally) Gastrointestinal (Abdomen): Inspection/Auscultation: + abdomen distended and normal bowel sounds Percussion/Palpation: + abdomen tender ( right upper quadrant) and abdomen soft Musculoskeletal: no acute arthritis involving any of the joint Neurologic: normal touch/pain/proprioception and moves all extremities; no focal motor deficits Lymphatic: no cervical or axillary lymphadenopathy Results & Data Results & Data Vital Signs (Past 12 Hours) Vital Signs Temp Pulse Resp BP BP Pulse Ox O2 Del Method 02/11/25 12:42 36.9 C 80 18 165/86 H 95 Room Air 02/11/25 08:23 36.5 C 77 16 165/70 H 96 Room Air 02/11/25 08:20 80 20 92 Nasal Cannula 02/11/25 02:58 36.5 C 81 20 150/79 H 95 Nasal Cannula O2 Flow Rate 02/11/25 12:42 02/11/25 08:23 02/11/25 08:20 2 02/11/25 02:58 2 Laboratory Results Short CBC 02/11/25 02/11/25 Range/Units 06:17 07:02 WBC Cancelled 17.79 H Hgb Cancelled 12.9 L Hct Cancelled 39.3 L Plt Count Cancelled 279 BMP 02/11/25 02/11/25 02/11/25 06:17 06:17 06:17 Sodium 140 139 Potassium 3.8 3.8 Chloride 108 H Carbon Dioxide BUN Creatinine Glucose Calcium 02/11/25 02/11/25 02/11/25 06:17 06:17 06:17 Sodium Potassium Chloride 108 H Carbon Dioxide 27 25 BUN 28 H 29 H Creatinine 1.26 Glucose Calcium 02/11/25 02/11/25 02/11/25 06:17 06:17 06:17 Sodium Potassium Chloride Carbon Dioxide BUN Creatinine 1.20 Glucose 99 97 Calcium 8.3 L 8.2 L Liver Function 02/11/25 Range/Units 06:17 Total Bilirubin 1.2 H (0.2-1.0) mg/dl AST 26 (13-39) U/L ALT 16 (7-52) U/L Alkaline Phosphatase 51 (34-104) U/L Albumin 2.7 L (3.4-5.0) gm/dl Medications Administered Current Inpatient Medications Acetaminophen (Acetaminophen 325 Mg Tab) 650 mg PO QID PRN PRN Reason: pain/fever Stop: 03/10/25 23:29 Last Admin: 02/09/25 21:28 Dose: 650 mg Albuterol (Albut/Ipratrop 3mg/0.5mg Neb 3 Ml Vial) 3 ml NEB Q6R PRN; Protocol PRN Reason: sob Stop: 03/12/25 09:31 Last Admin: 02/10/25 09:50 Dose: 3 ml Donepezil HCl (Donepezil Hcl 10 Mg Tab) 10 mg PO HS [facility] Stop: 03/11/25 20:59 Last Admin: 02/10/25 20:38 Dose: 10 mg Fluticasone/Vilanterol (Fluticasone/Vilanterol 100/25mcg 14 Puffs/Inhaler) 1 puffs INH DAILY [facility] Stop: 03/11/25 08:59 Last Admin: 02/11/25 10:23 Dose: 1 puffs Hydromorphone HCl (Hydromorphone Inj 0.5 Mg/0.5 Ml Syr) 0.5 mg IV Q4H PRN PRN Reason: Pain Stop: 02/22/25 23:29 Last Admin: 02/10/25 10:19 Dose: 0.5 mg Promethazine HCl (Phenergan) 6.25 mg in 50.25 mls @ 201 mls/hr IV Q6H PRN PRN Reason: Nausea And Vomiting Stop: 03/10/25 23:29 Piperacillin Sod/Tazobactam Sod (Zosyn) 4.5 gm in 100 mls @ 25 mls/hr IV Q8H [facility]; Protocol Stop: 02/19/25 03:59 Last Admin: 02/11/25 05:01 Dose: 25 mls/hr Memantine (Memantine Hcl 10 Mg Tab) 10 mg PO BID [facility] Stop: 03/11/25 08:59 Last Admin: 02/11/25 10:32 Dose: 10 mg Oxycodone HCl (Oxycodone Hcl Ir 5 Mg Tab (Immediate Release)) 5 mg PO Q4H PRN PRN Reason: Pain Stop: 02/22/25 23:29 Last Admin: 02/10/25 16:17 Dose: 5 mg Potassium Phosphate (Pot Phosphate Monobasic W/ Sod Tab) 1 tab PO QID [facility] Stop: 03/13/25 08:59 Last Admin: 02/11/25 10:31 Dose: 1 tab
--- NOTE | 2025-02-11 13:51 | Electrocardiogram Report ---
Test Reason : Blood Pressure : */* mmHG Vent. Rate : 83 BPM Atrial Rate : 83 BPM P-R Int : 176 ms QRS Dur : 74 ms QT Int : 346 ms P-R-T Axes : 47 -8 54 degrees QTcB Int : 406 ms Poor data quality, interpretation may be adversely affected Normal sinus rhythm Low voltage QRS Borderline ECG When compared with ECG of 08-Feb-2025 21:27, Criteria for Inferior infarct are no longer Present Confirmed by Kaushik Iniguez ([id number]) on 02/11/2025 1:51:02 PM Referred By: [facility] Confirmed By: Kaushik Iniguez
[2025-02-11] MEDS: FUROSEMIDE INJ 20 MG/2 ML VIAL IV ONE (16:16)
[2025-02-12 08:27] LABS: Alanine Aminotransferase 31.0 U/L (7-52); Albumin Globulin Ratio 1.0 (0.9-2); Alkaline Phosphatase 73.0 U/L (34-104); Anion Gap 7.0 (3-11); Bilirubin,Total 1.2 mg/dl (0.2-1.0); Blood Urea Nitrogen 23.0 mg/dl (6-23); Calcium 8.3 mg/dl (8.6-10.3); Carbon Dioxide 29.0 mmol/L (21-32); Chloride 103.0 mmol/L (98-107); Creatinine Clr Calc Pharmacy 59.6 ml/min; Globulin 2.8 gm/dl (2.5-4.0); Glucose 91.0 mg/dl (70-99(Fasting)); Magnesium 1.9 mg/dl (1.7-2.4); Potassium 3.4 mmol/L (3.5-5.1); Sodium 139.0 mmol/L (136-145); Total Protein 5.5 gm/dl (6.0-8.3)
[2025-02-12 08:38] LABS: Hematocrit (blood only) 39.7 % (42.0-52.0); Hemoglobin 13.0 g/dl (14.0-18.0); Mean Corpuscular Hemoglobin 29.3 pg (25.0-34.0); Mean Corpuscular Volume 89.6 fL (80.0-100.0); Platelet Count 293 K/uL (130-400); RDW Standard Deviation 46.5 fL (36.4-46.3); Red Blood Count 4.43 M/uL (4.70-6.10); White Blood Count 19.18 K/ul (4.8-10.8)
--- NOTE | 2025-02-12 08:51 | Surgery Progress Note ---
Date of Service February 12, 2025 Assessment & Plan (1) Bile leak: Plan: Since he is doing well clinically I think we should observe his WBC. If it goes up again tomorrow we should consider imaging to see if the abdominal drain need to reposition. I will go ahead and advance his diet today at his request but make him n.p.o. after midnight just in case (2) Post-operative complication: (3) Severe sepsis: Admission and Anticipated Discharge Date Admission Date: February 08, 2025 Subjective Patient feeling much better. Denying abdominal pain currently. He is hungry Physical Exam Physical Exam: Alert no acute distress Abdomen is soft nontender. His abdominal drain is in place with scant output Results & Data Vital Signs (Past 12 Hours) Vital Signs Temp Pulse Pulse Resp BP Pulse Ox O2 Del Method 02/12/25 08:22 36.3 C L 79 18 152/76 H 94 Nasal Cannula 02/12/25 05:28 79 02/12/25 02:42 36.2 C L 78 18 142/73 H 94 Nasal Cannula 02/12/25 01:22 Nasal Cannula 02/12/25 01:18 73 02/11/25 22:29 36.1 C L 79 20 153/74 H 94 Nasal Cannula O2 Flow Rate 02/12/25 08:22 2 02/12/25 05:28 02/12/25 02:42 2 02/12/25 01:22 2 02/12/25 01:18 02/11/25 22:29 2 PG Care Time/CCT Total # of Minutes Spent Total Time Spent with Patient: Total time spent is greater than 50% in coordination of care (as documented) at patient's floor/unit and/or counseling patient: Coding Level of Care Code 21164 Post Operative Follow-Up Diagnoses Bile leak K83.9 Post-operative complication T81.9XXA Severe sepsis A41.9; R65.20
[2025-02-12] MEDS: POTASSIUM CHLORIDE CRTAB 20 MEQ TABCR PO STA (09:11)
[2025-02-12 09:52] LABS: Dohle Bodies 1+; Immature Granulocytes # (auto) 1.43 K/uL (0.01-0.20); Immature Granulocytes % (auto) 7.5 %; Polychromasia 1+; Toxic Granulation 1+
--- NOTE | 2025-02-12 10:58 | Hospitalist Progress Note ---
Date of Service February 12, 2025 Assessment & Plan (1) Severe sepsis: Plan: Assessment and plan below following discussion of case with ED provider and reviewing patient history/pertinent normal/abnormal diagnostic test results. Severe sepsisSepsis following cholecystectomy, due to possible postoperative abscess or bile leak SIRS plus ARF on CKD plus lactic acidosis HIDA scan showed abnormal uptake migrating into the gallbladder fossa consistent with bile leak Has been on intravenous Zosyn and will continue for now Appreciate surgery and GI GI input and recommendation Complains to have more pain in abdomen and especially right upper quadrant without any fever and/or chills Noted to have some shortness of breath this morning as well His white count is elevated likely secondary to ongoing bile leak Scheduled for IR drainage today and also MRCP to evaluate leak further Will continue n.p.o. for now and intravenous antibiotic Depending on the MRCP he may need to go for ERCP- discussed with the family members MRCP showed unchanged air and fluid collection within the mary hepatis and large fluid collection within the medial upper epigastric abdomen measuring up to 11 cm Status post intra-abdominal fluid collection drain placement and drain so for 250 mL of fluid CTA did not show any pulmonary embolism He has been feeling little better and will continue current management Will advance diet as tolerated to full liquid Clinically much better with decreasing abdominal pain and has been tolerating advance diet Does not have any significant drainage from the intra-abdominal catheter and the white count is elevated likely secondary to irritation from bile Other significant medical conditions remain stable and are as below: Hypertension, stable hx PVD/TIA Asthma/COPD, stable NAFLD Dementia, mentation at baseline No acute delirium Conversing normally Hyperglycemia rule out DM Hemoglobin A1c minimally elevated at 5.8 Past tobacco abuse Check hemoglobin A1c DVT prophylaxis. SCDs RE possible procedure Full code Patient requesting update providers. Ms. Citlalli Elias, contact #[phone]. Admission and Anticipated Discharge Date Admission Date: February 08, 2025 Subjective 02/09/2025 Patient was seen and examined in emergency room He was admitted with progressing abdominal pain and noted to have bile leak from recent cholecystectomy site His pain is controlled now Denies any significant symptoms remains pleasantly confused from dementia 02/10/2025 The patient was seen and examined in medical telemetry unit He has not been feeling well and complains of right upper quadrant/abdominal pain without nausea no vomiting Denies any chest pain and no palpitation and no fever no chills 02/11/2025 The patient was seen and examined in medical telemetry unit in presence of the He has been feeling a little better since IR procedure with intra-abdominal drainage tube placement Still has abdominal pain with nausea but tolerating diet No fever no chills but the white count remains elevated 02/12/2025 The patient was seen and examined in medical telemetry unit in presence of the He is much better today and denies any abdominal pain, no fever and chills Denies any other significant symptoms, Review of Systems Review of Systems: All systems reviewed and unremarkable except as noted below Physical Exam Physical Exam: Lying in bed with minimal distress due to abdominal discomfort Constitutional: well developed, well nourished, + ill appearing and + obese Eyes: PERRL, conjunctivae normal, anicteric sclerae ENMT: external ear and nose normal, oropharynx normal Neck: trachea midline, no thyromegaly Respiratory: + respiratory distress ( minimal respira tory distress at rest and requiring 2 L to maintain saturat) Auscultation: + diminished lung sounds and + crackles ( occasional crackles at the bases) Cardiovascular: Rate/Rhythm: regular rate and regular rhythm; not tachycardic Heart Sounds: normal S1 and normal S2; no murmur Extremities: + edema ( trace edema bilaterally) Gastrointestinal (Abdomen): Inspection/Auscultation: + abdomen distended and normal bowel sounds Percussion/Palpation: + abdomen tender ( Minimally tender mostly in the epigastrium) and abdomen soft Musculoskeletal: No acute arthritis involving any of the joint Neurologic: normal touch/pain/proprioception and moves all extremities; no focal motor deficits Lymphatic: no cervical or axillary lymphadenopathy Results & Data Results & Data Vital Signs (Past 12 Hours) Vital Signs Temp Pulse Pulse Resp BP Pulse Ox O2 Del Method 02/12/25 08:22 36.3 C L 79 18 152/76 H 94 Nasal Cannula 02/12/25 05:28 79 02/12/25 02:42 36.2 C L 78 18 142/73 H 94 Nasal Cannula 02/12/25 01:22 Nasal Cannula 02/12/25 01:18 73 O2 Flow Rate 02/12/25 08:22 2 02/12/25 05:28 02/12/25 02:42 2 02/12/25 01:22 2 02/12/25 01:18 Laboratory Results Short CBC 02/12/25 Range/Units 06:53 WBC 19.18 H (4.8-10.8) K/ul Hgb 13.0 L (14.0-18.0) g/dl Hct 39.7 L (42.0-52.0) % Plt Count 293 (130-400) K/uL BMP 02/12/25 06:53 Sodium 139 Potassium 3.4 L Chloride 103 Carbon Dioxide 29 BUN 23 Creatinine 1.15 Glucose 91 Calcium 8.3 L Liver Function 02/12/25 Range/Units 06:53 Total Bilirubin 1.2 H (0.2-1.0) mg/dl AST 38 (13-39) U/L ALT 31 (7-52) U/L Alkaline Phosphatase 73 (34-104) U/L Albumin 2.7 L (3.4-5.0) gm/dl Medications Administered Current Inpatient Medications Acetaminophen (Acetaminophen 325 Mg Tab) 650 mg PO QID PRN PRN Reason: pain/fever Stop: 03/10/25 23:29 Last Admin: 02/12/25 09:23 Dose: 650 mg Albuterol (Albut/Ipratrop 3mg/0.5mg Neb 3 Ml Vial) 3 ml NEB Q6R PRN; Protocol PRN Reason: sob Stop: 03/12/25 09:31 Last Admin: 02/10/25 09:50 Dose: 3 ml Donepezil HCl (Donepezil Hcl 10 Mg Tab) 10 mg PO HS SHANNON Stop: 03/11/25 20:59 Last Admin: 02/11/25 22:36 Dose: 10 mg Fluticasone/Vilanterol (Fluticasone/Vilanterol 100/25mcg 14 Puffs/Inhaler) 1 puffs INH DAILY SHANNON Stop: 03/11/25 08:59 Last Admin: 02/12/25 09:12 Dose: 1 puffs Hydromorphone HCl (Hydromorphone Inj 0.5 Mg/0.5 Ml Syr) 0.5 mg IV Q4H PRN PRN Reason: Pain Stop: 02/22/25 23:29 Last Admin: 02/10/25 10:19 Dose: 0.5 mg Promethazine HCl (Phenergan) 6.25 mg in 50.25 mls @ 201 mls/hr IV Q6H PRN PRN Reason: Nausea And Vomiting Stop: 03/10/25 23:29 Piperacillin Sod/Tazobactam Sod (Zosyn) 4.5 gm in 100 mls @ 25 mls/hr IV Q8H [facility]; Protocol Stop: 02/19/25 03:59 Last Infusion: 02/12/25 08:46 Dose: Infused Memantine (Memantine Hcl 10 Mg Tab) 10 mg PO BID [facility] Stop: 03/11/25 08:59 Last Admin: 02/12/25 09:12 Dose: 10 mg Oxycodone HCl (Oxycodone Hcl Ir 5 Mg Tab (Immediate Release)) 5 mg PO Q4H PRN PRN Reason: Pain Stop: 02/22/25 23:29 Last Admin: 02/11/25 18:11 Dose: 5 mg Potassium Phosphate (Pot Phosphate Monobasic W/ Sod Tab) 1 tab PO QID [facility] Stop: 03/13/25 08:59 Last Admin: 02/12/25 09:12 Dose: 1 tab
[2025-02-13 07:22] LABS: Hematocrit (blood only) 42.6 % (42.0-52.0); Hemoglobin 14.2 g/dl (14.0-18.0); Mean Corpuscular Hemoglobin 29.6 pg (25.0-34.0); Mean Corpuscular Volume 88.9 fL (80.0-100.0); Platelet Count 332 K/uL (130-400); RDW Standard Deviation 46.8 fL (36.4-46.3); Red Blood Count 4.79 M/uL (4.70-6.10)
[2025-02-13 07:48] LABS: Anion Gap 9.0 (3-11); Blood Urea Nitrogen 20.0 mg/dl (6-23); Calcium 8.6 mg/dl (8.6-10.3); Carbon Dioxide 27.0 mmol/L (21-32); Chloride 102.0 mmol/L (98-107); Creatinine Clr Calc Pharmacy 58.5 ml/min; Glucose 98.0 mg/dl (70-99(Fasting)); Magnesium 1.9 mg/dl (1.7-2.4); Potassium 3.3 mmol/L (3.5-5.1); Sodium 138.0 mmol/L (136-145)
[2025-02-13 08:00] LABS: White Blood Count 22.36 K/ul (4.8-10.8)
[2025-02-13 08:01] LABS: Immature Granulocytes # (auto) 1.34 K/uL (0.01-0.20); Immature Granulocytes % (auto) 6.0 %; Toxic Granulation 1+
[2025-02-13] MEDS: POTASSIUM CHLORIDE / WTR 10 MEQ/100 ML PLCT IV SCH (09:05)
--- NOTE | 2025-02-13 10:04 | Surgery Progress Note ---
Date of Service February 13, 2025 Assessment & Plan (1) Post-operative complication: (2) Bile leak: Plan: POD # 7 s/p laparoscopic cholecystectomy postop bile leak s/p IR drain placement in anterior collection on 02/10/25 wbc increasing today up to 22k (19K yesterday) afebrile abdomen soft, tender in RUQ Plan: Will repeat CT scan of abd/pelvis with IV contrast today will need GI to re-evaluate for repeat ERCP with stent exchange given concern for persistent bile leak with rising wbc continue npo continue iv antibiotics continue pain management continue medical management Dr. Winslow has seen patient and discussed above with patient's . Admission and Anticipated Discharge Date Admission Date: February 08, 2025 Subjective at bedside, patient doesn't give much history given Alzheimer's no n,v states he looks better than yesterday, complaining about pain at IV site is main complaint has not had much to eat he states he has pain in upper abdomen when asked if having any pain Physical Exam Constitutional: WD/WN, vitals as above cooperative; no acute distress and not ill appearing Respiratory: normal respiratory effort; no respiratory distress Gastrointestinal (Abdomen): Inspection/Auscultation: abdomen normal to inspection, + abdominal surgical incision (c/d/i with dermabond) and + abdominal surgical drain present (bilious output in bag, minimal); abdomen not distended Percussion/Palpation: + abdomen tender (RUQ) and abdomen soft; no guarding, abdomen not rigid and abdomen not firm Skin: no rashes, warm and dry no jaundice Results & Data Vital Signs (Past 12 Hours) Vital Signs Temp Pulse Pulse Resp BP Pulse Ox O2 Del Method 02/13/25 08:05 36.7 C 75 18 157/78 H 94 Nasal Cannula 02/13/25 06:59 72 02/13/25 04:01 36.4 C L 75 20 158/81 H 96 Nasal Cannula 02/13/25 00:24 Nasal Cannula 02/13/25 00:22 83 02/12/25 23:35 36.7 C 75 20 158/82 H 93 Nasal Cannula O2 Flow Rate 02/13/25 08:05 2 02/13/25 06:59 02/13/25 04:01 2 02/13/25 00:24 2 02/13/25 00:22 02/12/25 23:35 2 Laboratory Results 02/13/25 Range/Units 06:55 WBC 22.36 H (4.8-10.8) K/ul RBC 4.79 (4.70-6.10) M/uL Hgb 14.2 (14.0-18.0) g/dl Hct 42.6 (42.0-52.0) % MCV 88.9 (80.0-100.0) fL MCH 29.6 (25.0-34.0) pg MCHC 33.3 (32.0-36.0) g/dL RDW Std Deviation 46.8 H (36.4-46.3) fL RDW Coeff of Shira 14.5 (11.5-14.5) % Plt Count 332 (130-400) K/uL MPV 10.7 (9.4-12.4) fL Immature Gran % (Auto) 6.0 % Neut % (Auto) 79.5 % Lymph % (Auto) 7.4 % [place] % (Auto) 5.5 % Eos % (Auto) 1.3 % Baso % (Auto) 0.3 % Neut # (Auto) 17.80 H (1.40-6.50) K/uL Lymph # (Auto) 1.65 (1.20-3.40) K/uL [place] # (Auto) 1.22 H (0.11-0.59) K/uL Eos # (Auto) 0.29 (0.00-0.50) K/uL Baso # (Auto) 0.06 (0.00-0.20) K/uL Immature Gran # (Auto) 1.34 H (0.01-0.20) K/uL Toxic Granulation 1+ Sodium 138 (136-145) mmol/L Potassium 3.3 L (3.5-5.1) mmol/L Chloride 102 (98-107) mmol/L Carbon Dioxide 27 (21-32) mmol/L Anion Gap 9 (3-11) BUN 20 (6-23) mg/dl Creatinine 1.16 (0.6-1.4) mg/dl Est Cr Clr Drug Dosing 58.5 ml/min eGFR 63.28 BUN/Creatinine Ratio 17.2 (10-20) Glucose 98 (70-99(Fasting)) mg/dl Calcium 8.6 (8.6-10.3) mg/dl Phosphorus 3.0 (2.5-4.9) mg/dl Magnesium 1.9 (1.7-2.4) mg/dl Diagnostic Findings CT SCAN OF THE ABDOMEN AND PELVIS WITH IV CONTRAST CLINICAL HISTORY: Cholecystectomy. Bile leak. Increasing white count. COMPARISON STUDY: CT of the abdomen and pelvis February 08, 2025. MRCP February 10, 2025. TECHNIQUE: Following the IV administration of 94 cc of Optiray 320, CT scan of the abdomen and pelvis is performed from the lung bases to the proximal femora. Images are reviewed in the axial, sagittal, and coronal planes. IV contrast was administered without complication. A dose lowering technique was utilized adhering to the principles of ALARA. CT DOSE: 1382.19 mGy.cm FINDINGS: Small bilateral pleural effusions are noted. Subpleural opacities favor atelectasis. No pneumatosis, free air or portal venous gas is present. There is no biliary ductal dilatation status post cholecystectomy. A common bile duct stent is in place. A 6.8 x 3 cm cholecystectomy bed fluid collection contains a small locule of gas. This collection has minimally increased in size since CT of February 08, 2025. Interval placement of a perihepatic fluid collection along the inferior aspect of the lateral segment is noted. This collection has markedly decreased in size. Left subdiaphragmatic collection on image 80 of 413 measures 8.3 x 3 cm and has mild peripheral enhancement. This collection has minimally increased in size since prior CT. A perigastric fluid collection along the greater curvature of the stomach measures 7.7 x 3.1 cm. This has minimally increased in size and has mild peripheral enhancement. A right abdominal fluid collection between the duodenum and hepatic flexure of the colon measures 4.3 x 3.1 cm, previously 4.3 x 2.6 cm. Partially loculated fluid within the right paracolic gutter has also increased. This measures 6.8 x 3.4 cm. There is associated peritoneal enhancement. A 4.8 x 2.9 cm fluid collection within the cul-de-sac is similar to prior CT. Mild wall thickening of the distal stomach and hepatic flexure of the colon is noted. Ill-defined phlegmon within the right anterior pararenal space, adjacent to the proximal duodenum and colon has increased. There is wall thickening of the ascending colon and hepatic flexure of the colon. There is no evidence for a bowel obstruction. There is colonic diverticulosis but evidence for acute diverticulitis. Major vasculature is patent. Left renal cyst is incidentally noted. Spleen, adrenal glands and pancreas are unremarkable. Subcentimeter hepatic lesions are likely benign. IMPRESSION: 1. No biliary ductal dilatation status post cholecystectomy. Common bile duct stent in place. Significant interval decrease in size of the left perihepatic fluid collection following drain placement. 2. Slight increase in size of multiple abdominal and pelvic fluid collections which demonstrate mild peripheral enhancement since CT of February 08, 2025, including a 6.8 x 3 cm cholecystectomy bed collection. This is consistent with a biloma and the additional fluid collections may also represent bilomas. As before, a few collections contain a small amount of gas. Given the clinical hi story, superimposed infection cannot be excluded. Increase in apparent phlegmon within the right anterior pararenal space. 3. Right colon and gastric/duodenal wall thickening, likely reactive. 4. No evidence for a bowel obstruction. 5. Small bilateral pleural effusions. Associated bibasilar opacities favor atelectasis.
[2025-02-13] MEDS: OPTIRAY 320 100ml IV ONE (10:38)
--- NOTE | 2025-02-13 11:25 | CT Scan Report ---
CT SCAN OF THE ABDOMEN AND PELVIS WITH IV CONTRAST CLINICAL HISTORY: Cholecystectomy. Bile leak. Increasing white count. COMPARISON STUDY: CT of the abdomen and pelvis February 08, 2025. MRCP February 10, 2025. TECHNIQUE: Following the IV administration of 94 cc of Optiray 320, CT scan of the abdomen and pelvis is performed from the lung bases to the proximal femora. Images are reviewed in the axial, sagittal, and coronal planes. IV contrast was administered without complication. A dose lowering technique was utilized adhering to the principles of ALARA. CT DOSE: 1382.19 mGy.cm FINDINGS: Small bilateral pleural effusions are noted. Subpleural opacities favor atelectasis. No pne umatosis, free air or portal venous gas is present. There is no biliary ductal dilatation status post cholecystectomy. A common bile duct stent is in place. A 6.8 x 3 cm cholecystectomy bed fluid collec tion contains a small locule of gas. This collection has minimally increased in size since CT of 2024. Interval placement of a perihepatic fluid collection along the inferior aspect of the la teral segment is noted. This collection has markedly decreased in size. Left subdiaphragmatic collect ion on image 80 of 413 measures 8.3 x 3 cm and has mild peripheral enhancement. This collection has m inimally increased in size since prior CT. A perigastric fluid collection along the greater curvature of the stomach measures 7.7 x 3.1 cm. This has minimally increased in size and has mild peripheral e nhancement. A right abdominal fluid collection between the duodenum and hepatic flexure of the colon measures 4.3 x 3.1 cm, previously 4.3 x 2.6 cm. Partially loculated fluid within the right paracolic gutter has also increased. This measures 6.8 x 3.4 cm. There is associated peritoneal enhancement. A 4.8 x 2.9 cm fluid collection within the cul-de-sac is similar to prior CT. Mild wall thickening of t he distal stomach and hepatic flexure of the colon is noted. Ill-defined phlegmon within the right an terior pararenal space, adjacent to the proximal duodenum and colon has increased. There is wall thic kening of the ascending colon and hepatic flexure of the colon. There is no evidence for a bowel obst ruction. There is colonic diverticulosis but evidence for acute diverticulitis. Major vasculature is patent. Left renal cyst is incidentally noted. Spleen, adrenal glands and pancreas are unremarkable. Subcentimeter hepatic lesions are likely benign. IMPRESSION: 1. No biliary ductal dilatation status post cholecystectomy. Common bile duct stent in place. Signifi cant interval decrease in size of the left perihepatic fluid collection following drain placement. 2. Slight increase in size of multiple abdominal and pelvic fluid collections which demonstrate mild peripheral enhancement since CT of February 08, 2025, including a 6.8 x 3 cm cholecystectomy bed collec tion. This is consistent with a biloma and the additional fluid collections may also represent biloma s. As before, a few collections contain a small amount of gas. Given the clinical history, superimpos ed infection cannot be excluded. Increase in apparent phlegmon within the right anterior pararenal sp delvin. 3. Right colon and gastric/duodenal wall thickening, likely reactive. 4. No evidence for a bowel obstruction. 5. Small bilateral pleural effusions. Associated bibasilar opacities favor atelectasis. ACT 112: Negative or not required by law. Electronically signed by: Chencho Lyon M.D. 02/13/2025 11:23 AM
[2025-02-13] MEDS: CEFEPIME 2000MG 2,000 MG/20 ML SYR IV SCH (13:13)
[2025-02-13] MEDS: metroNIDAZOLE 500 MG/100 ML BAG IV SCH (13:14)
--- NOTE | 2025-02-13 13:50 | Hospitalist Progress Note ---
Date of Service February 13, 2025 Assessment & Plan (1) Severe sepsis: Plan: Assessment and plan below following discussion of case with ED provider and reviewing patient history/pertinent normal/abnormal diagnostic test results. Severe sepsisSepsis following cholecystectomy, due to possible postoperative abscess or bile leak SIRS plus ARF on CKD plus lactic acidosis HIDA scan showed abnormal uptake migrating into the gallbladder fossa consistent with bile leak Has been on intravenous Zosyn and will continue for now Appreciate surgery and GI GI input and recommendation Complains to have more pain in abdomen and especially right upper quadrant without any fever and/or chills Noted to have some shortness of breath this morning as well His white count is elevated likely secondary to ongoing bile leak Scheduled for IR drainage today and also MRCP to evaluate leak further Will continue n.p.o. for now and intravenous antibiotic Depending on the MRCP he may need to go for ERCP- discussed with the family members MRCP showed unchanged air and fluid collection within the mary hepatis and large fluid collection within the medial upper epigastric abdomen measuring up to 11 cm Status post intra-abdominal fluid collection drain placement and drain so for 250 mL of fluid CTA did not show any pulmonary embolism He has been feeling little better and will continue current management Will advance diet as tolerated to full liquid Clinically much better with decreasing abdominal pain and has been tolerating advance diet Does not have any significant drainage from the intra-abdominal catheter and the white count is elevated likely secondary to irritation from bile Gram stain from the drainage and culture grew Klebsiella oxytoca and Klebsiella pneumoniaeantibiotic changed to intravenous cefepime He has been little worse today with increasing pain CT of the abdomen pelvis showed- bilomas and superimposed infection intra- abdominal 1. No biliary ductal dilatation status post cholecystectomy. Common bile duct stent in place. Significant interval decrease in size of the left perihepatic fluid collection following drain placement. 2. Slight increase in size of multiple abdominal and pelvic fluid collections which demonstrate mild peripheral enhancement since CT of February 08, 2025, including a 6.8 x 3 cm cholecystectomy bed collection. This is consistent with a biloma and the additional fluid collections may also represent bilomas. As before, a few collections contain a small amount of gas. Given the clinical history, superimposed infection cannot be excluded. Increase in apparent p hlegmon within the right anterior pararenal space. 3. Right colon and gastric/duodenal wall thickening, likely reactive. 4. No evidence for a bowel obstruction. 5. Small bilateral pleural effusions. Associated bibasilar opacities favor atelectasis. White count is slightly elevated at 22.36- will monitor with change of antibiotic to intravenous cefepime Other significant medical conditions remain stable and are as below: Hypertension, stable hx PVD/TIA Asthma/COPD, stable NAFLD Dementia, mentation at baseline No acute delirium Conversing normally Hyperglycemia rule out DM Hemoglobin A1c minimally elevated at 5.8 Past tobacco abuse Check hemoglobin A1c DVT prophylaxis. SCDs RE possible procedure Full code Patient requesting update providers. Ms. Citlalli Elias, contact #[phone]. Discussed with the in detail Admission and Anticipated Discharge Date Admission Date: February 08, 2025 Subjective 02/09/2025 Patient was seen and examined in emergency room He was admitted with progressing abdominal pain and noted to have bile leak from recent cholecystectomy site His pain is controlled now Denies any significant symptoms remains pleasantly confused from dementia 02/10/2025 The patient was seen and examined in medical telemetry unit He has not been feeling well and complains of right upper quadrant/abdominal pain without nausea no vomiting Denies any chest pain and no palpitation and no fever no chills 02/11/2025 The patient was seen and examined in medical telemetry unit in presence of the He has been feeling a little better since IR procedure with intra-abdominal drainage tube placement Still has abdominal pain with nausea but tolerating diet No fever no chills but the white count remains elevated 02/12/2025 The patient was seen and examined in medical telemetry unit in presence of the He is much better today and denies any abdominal pain, no fever and chills Denies any other significant symptoms, 02/13/2025 The patient was seen and examined in medical telemetry unit He has been complaining of increasing abdominal pain today specially in the epigastric area with nausea but no vomiting Has not had any bowel movement today No fever no chills and no tachycardia Review of Systems Review of Systems: All systems reviewed and unremarkable except as noted below Physical Exam Physical Exam: Lying in bed with minimal distress due to abdominal discomfort Constitutional: well developed, well nourished, + ill appearing and + obese Eyes: PERRL, conjunctivae normal, anicteric sclerae ENMT: external ear and nose normal, oropharynx normal Neck: trachea midline, no thyromegaly Respiratory: + respiratory distress ( minimal respira tory distress at rest and requiring 2 L to maintain saturat) Auscultation: + diminished lung sounds and + crackles ( occasional crackles at the bases) Cardiovascular: Rate/Rhythm: regular rate and regular rhythm; not tachycardic Heart Sounds: normal S1 and normal S2; no murmur Extremities: + edema ( trace edema bilaterally) Gastrointestinal (Abdomen): Inspection/Auscultation: + abdomen distended and normal bowel sounds Percussion/Palpation: + abdomen tender ( Minimally tender mostly in the epigastrium) and abdomen soft Neurologic: normal touch/pain/proprioception and moves all extremities; no focal motor deficits Lymphatic: no cervical or axillary lymphadenopathy Results & Data Results & Data Vital Signs (Past 12 Hours) Vital Signs Temp Pulse Pulse Resp BP Pulse Ox O2 Del Method 02/13/25 11:30 Nasal Cannula 02/13/25 11:06 36.2 C L 77 18 153/80 H 92 Room Air 02/13/25 08:05 36.7 C 75 18 157/78 H 94 Nasal Cannula 02/13/25 06:59 72 02/13/25 04:01 36.4 C L 75 20 158/81 H 96 Nasal Cannula O2 Flow Rate 02/13/25 11:30 2 02/13/25 11:06 02/13/25 08:05 2 02/13/25 06:59 02/13/25 04:01 2 Laboratory Results Short CBC 02/13/25 Range/Units 06:55 WBC 22.36 H (4.8-10.8) K/ul Hgb 14.2 (14.0-18.0) g/dl Hct 42.6 (42.0-52.0) % Plt Count 332 (130-400) K/uL BMP 02/13/25 06:55 Sodium 138 Potassium 3.3 L Chloride 102 Carbon Dioxide 27 BUN 20 Creatinine 1.16 Glucose 98 Calcium 8.6 Medications Administered Current Inpatient Medications Acetaminophen (Acetaminophen 325 Mg Tab) 650 mg PO QID PRN PRN Reason: pain/fever Stop: 03/10/25 23:29 Last Admin: 02/12/25 17:35 Dose: 650 mg Albuterol (Albut/Ipratrop 3mg/0.5mg Neb 3 Ml Vial) 3 ml NEB Q6R PRN; Protocol PRN Reason: sob Stop: 03/12/25 09:31 Last Admin: 02/10/25 09:50 Dose: 3 ml Donepezil HCl (Donepezil Hcl 10 Mg Tab) 10 mg PO HS [facility] Stop: 03/11/25 20:59 Last Admin: 02/12/25 20:05 Dose: 10 mg Fluticasone/Vilanterol (Fluticasone/Vilanterol 100/25mcg 14 Puffs/Inhaler) 1 puffs INH DAILY SHANNON Stop: 03/11/25 08:59 Last Admin: 02/13/25 09:03 Dose: 1 puffs Hydromorphone HCl (Hydromorphone Inj 0.5 Mg/0.5 Ml Syr) 0.5 mg IV Q4H PRN PRN Reason: Pain Stop: 02/22/25 23:29 Last Admin: 02/10/25 10:19 Dose: 0.5 mg Promethazine HCl (Phenergan) 6.25 mg in 50.25 mls @ 201 mls/hr IV Q6H PRN PRN Reason: Nausea And Vomiting Stop: 03/10/25 23:29 Cefepime HCl (Maxipime 2000mg) 2,000 mg in 20 mls @ 5 mls/min IV Q12H SHANNON Stop: 02/23/25 11:59 Last Admin: 02/13/25 13:13 Dose: 5 mls/min Metronidazole (Flagyl) 500 mg in 100 mls @ 100 mls/hr IV Q8H SHANNON Stop: 02/23/25 11:59 Last Admin: 02/13/25 13:14 Dose: 100 mls/hr Memantine (Memantine Hcl 10 Mg Tab) 10 mg PO BID SHANNON Stop: 03/11/25 08:59 Last Admin: 02/13/25 09:04 Dose: 10 mg Oxycodone HCl (Oxycodone Hcl Ir 5 Mg Tab (Immediate Release)) 5 mg PO Q4H PRN PRN Reason: Pain Stop: 02/22/25 23:29 Last Admin: 02/13/25 09:02 Dose: 5 mg Potassium Phosphate (Pot Phosphate Monobasic W/ Sod Tab) 1 tab PO QID SHANNON Stop: 03/13/25 08:59 Last Admin: 02/13/25 13:13 Dose: 1 tab
--- NOTE | 2025-02-13 15:15 | Communication Note ---
Date of Service: February 13, 2025 GI reconsulted due to concerns regarding increasing WBC count (22,360) and biloma increasing in size in this patient with a post-op bile leak with an exis ting stent placed by [employer] . Patient continues on IV antibiotics, CBC & LFTs are being monitored. Discussed with Dr. Trujillo who advised the following additions to the plan of care: -Recommend IR switch the drain as patient went from draining 250 ccs to then no output abruptly -Can switch stent tomorrow, however imaging shows that the existing stent is in place and the duct appears patent, so this may be a low yield intervention. Will keep NPO after midnight.
--- NOTE | 2025-02-13 19:36 | Gastroenterology Progress Note ---
Date of Service February 13, 2025 Assessment & Plan (1) Bile leak: Plan: After biliary stent a bile leak can take days to a week or more to seal. I believe that the current drain is not draining the cholecystectomy bed collection. Consider drain change or replacement. The indwelling biliary stent may not be giving adequate decrease in the transpapillary pressure. This may result in slower leak sealing. I think at this point would be reasonable to undergo an ERCP stent change, evaluate for ongoing leak and retained common duct stone. Proceed tomorrow Admission and Anticipated Discharge Date Admission Date: February 08, 2025 Subjective Persistent increased white count. Patient appears much improved from when I saw him on Thursday. Biloma appears to be worsening. There is a 6.8 x 3 cm collection in the cholecystectomy bed. I believe this is going to need to be drained. I believe the abrupt discontinuation of drainage from the initial drain was consistent with draining a pocket but not the ongoing leak site. However with persistent bile leak increasing white count be reasonable to have him ongoing ERCP stent change rule out a retained common duct stone or stent occlusion. Reviewed with patient and at the bedside. Potential complications including pancreatitis bleeding infection discussed. Proceed tomorrow. Physical Exam Physical Exam: Abdomen softer. Patient more alert. Results & Data Results & Data Vital Signs (Past 12 Hours) Vital Signs Temp Pulse Pulse Resp BP Pulse Ox O2 Del Method 02/13/25 17:04 81 02/13/25 15:14 37.7 C H 78 20 165/84 H 94 Nasal Cannula 02/13/25 11:30 Nasal Cannula 02/13/25 11:06 36.2 C L 77 18 153/80 H 92 Room Air 02/13/25 08:05 36.7 C 75 18 157/78 H 94 Nasal Cannula O2 Flow Rate 02/13/25 17:04 02/13/25 15:14 2 02/13/25 11:30 2 02/13/25 11:06 02/13/25 08:05 2 PG Care Time/CCT Total # of Minutes Spent Total Time Spent with Patient: Total time spent is greater than 50% in coordination of care (as documented) at patient's floor/unit and/or counseling patient: Coding Level of Care Code 41129 SUB INP/OBS CARE 07/23MIN Diagnoses Bile leak K83.9
[2025-02-14] MEDS ORDERED: LIDOCAINE 2% 2 ML VIAL/AMP(20MG/ML) INFIL ONE (07:02)
[2025-02-14] MEDS ORDERED: ONDANSETRON INJ 2 MG/ML 2 ML VIAL ONE (07:02)
[2025-02-14] MEDS ORDERED: PROPOFOL IV EMULSION 10 MG/ML 20 ML VIAL IV ONE (07:02)
[2025-02-14] MEDS ORDERED: SUGAMMADEX SODIUM 200 MG/2 ML VIAL IV ONE (07:02)
[2025-02-14] MEDS ORDERED: ROCURONIUM BROMIDE 10 MG/ML 5 ML VIAL IV ONE (07:02)
[2025-02-14 07:28] LABS: Hematocrit (blood only) 41.0 % (42.0-52.0); Hemoglobin 14.0 g/dl (14.0-18.0); Mean Corpuscular Hemoglobin 29.7 pg (25.0-34.0); Mean Corpuscular Volume 86.9 fL (80.0-100.0); Platelet Count 352 K/uL (130-400); RDW Standard Deviation 45.5 fL (36.4-46.3); Red Blood Count 4.72 M/uL (4.70-6.10); White Blood Count 27.03 K/ul (4.8-10.8)
--- NOTE | 2025-02-14 07:31 | Anesthesiology Consultation ---
Date of Service February 14, 2025 Assessment & Plan Chart Review Chart Review: Acceptable Risk for Surgery and Patient NOT seen in Pre Admission Testing Consults Requested none ASA ASA3 Proposed Anesthesia Anesthesia Type: General History Surgery Operation Date: 02/14/25 07:00 Proposed Procedures p Endoscopic Retrograde Cholangiopancreatogram - Mayur Trujillo MD Height/Weight Height: 5 ft 11 in Weight: 94.1 kg Allergies Allergy/AdvReac Type Severity Reaction Status Date / Time cortisone Allergy Mild Cortisone Verified 02/06/25 09:03 cream ("made things worse") Medications Home Medications Medication Instructions Recorded Confirmed Last Taken albuterol sulfate 90 mcg/actuation 1 inh inhalation QID PRN sob 01/31/25 02/08/25 02/06/25 05:00 aerosol inhaler amlodipine 2.5 mg tablet 2.5 mg PO QPM 01/31/25 02/08/25 02/05/25 18:00 aspirin 81 mg tablet,delayed 81 mg PO QAM 01/31/25 02/08/25 02/01/25 release cetirizine 10 mg capsule (Allergy 10 mg PO DAILY 01/31/25 02/08/25 02/03/25 Relief (cetirizine)) cyanocobalamin (vitamin B-12) 1,000 mcg PO 4XWK 01/31/25 02/08/25 02/01/25 1,000 mcg capsule donepezil 10 mg tablet 10 mg PO HS 01/31/25 02/08/25 02/05/25 18:00 fluticasone propionate 50 1 spray intranasal BID PRN 01/31/25 02/08/25 2 Days Ago mcg/actuation nasal Congestion ~02/04/25 spray,suspension hydrochlorothiazide 25 mg tablet 12.5 mg PO QAM 01/31/25 02/08/25 02/04/25 lutein 25 mg-zeaxanthin 5 mg 1 cap PO HS 01/31/25 02/08/25 02/01/25 capsule memantine 10 mg tablet 10 mg PO BID 01/31/25 02/08/25 02/05/25 18:00 fluticasone 100 mcg-salmeterol 50 1 inh inhalation BID 02/06/25 02/08/25 02/06/25 05:00 mcg/dose blistr powdr for inhalation (Advair Diskus) oxycodone-acetaminophen 5 mg-325 1 tab PO Q6H PRN pain #14 tabs 02/06/25 02/08/25 Unknown mg tablet (Percocet) Active Medications Generic Name Dose Route Start Last Admin Trade Name Freq PRN Reason Stop Dose Admin Acetaminophen 650 mg 02/08/25 23:30 02/12/25 17:35 Acetaminophen 325 Mg Tab PO 03/10/25 23:29 650 mg QID PRN Administration pain/fever Albuterol 3 ml 02/10/25 09:32 02/10/25 09:50 Albut/Ipratrop 3mg/0.5mg Neb 3 Ml Vial NEB 03/12/25 09:31 3 ml Q6R PRN Administration sob Protocol Donepezil HCl 10 mg 02/09/25 21:00 02/13/25 21:24 Donepezil Hcl 10 Mg Tab PO 03/11/25 20:59 10 mg HS SHANNON Administration Fluticasone/Vilanterol 1 puffs 02/09/25 09:00 02/13/25 09:03 Fluticasone/Vilanterol 100/25mcg 14 Puffs/Inhaler INH 03/11/25 08:59 1 puffs DAILY SHANNON Administration Hydromorphone HCl 0.5 mg 02/08/25 23:30 02/10/25 10:19 Hydromorphone Inj 0.5 Mg/0.5 Ml Syr IV 02/22/25 23:29 0.5 mg Q4H PRN Administration Pain Cefepime HCl 2,000 mg in 20 mls @ 5 mls/min 02/13/25 12:00 02/13/25 23:15 Maxipime 2000mg IV 02/23/25 11:59 5 mls/min Q12H SHANNON Administration Metronidazole 500 mg in 100 mls @ 100 mls/hr 02/13/25 12:00 02/14/25 04:40 Flagyl IV 02/23/25 11:59 Infused Q8H SHANNON Infusion Memantine 10 mg 02/09/25 09:00 02/13/25 21:23 Memantine Hcl 10 Mg Tab PO 03/11/25 08:59 10 mg BID SHANNON Administration Oxycodone HCl 5 mg 02/08/25 23:30 02/13/25 16:34 Oxycodone Hcl Ir 5 Mg Tab (Immediate Release) PO 02/22/25 23:29 5 mg Q4H PRN Administration Pain Potassium Phosphate 1 tab 02/11/25 09:00 02/13/25 21:23 Pot Phosphate Monobasic W/ Sod Tab PO 03/13/25 08:59 1 tab QID SHANNON Administration Past Medical History Medical History Mild chronic obstructive pulmonary disease Per [place] Dyslipidemia [place] [facility] [place] Coronary artery disease [place] [facility] [place] Nonobstructive CAD on 2021 cardiac cath 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 Arthritis Dementia " states will not leave alone because of safety" will be present DOS per PAT RN History of TIA (transient ischemic attack) 10+ years ago Hypertension Asthma Exercise / Class Metabolic Activity II 4-5 Yardwork/Stairs/Walk up hill Past Family History Family History Other No family history of adverse response to anesthesia Past Surgical History Surgical History History of cardiac cath 2021 H/O colonoscopy with polypectomy History of anesthesia reaction ERCP; [facility] (01/20/25) > "Required inhaler" Anesthesia records scanned into chart: "Comments: Patient responded very well to the duo-nebulizer treatment; he is 96% SaO2, comfortable and essentially back to his baseline." History of knee replacement procedure of right knee History of tooth extraction History of tonsillectomy H/O bilateral cataract extraction History of ERCP (01/20/25) ERCP; [facility] Past Anesthesia History No Hx of Anesthesia Complications and No Family Hx of Anesthesia Complications History of PONV No Hx of PONV and No Hx of Motion Sickness Social History Smoking Status: Former smoker Do You Dip or Chew Tobacco: No Hx Alcohol Use: No Hx Substance Use: No substance use type: does not use Physical Exam Vital Signs Last Vital Signs Temp 37.3 C 02/14/25 03:32 Pulse 83 02/14/25 07:17 Resp 18 02/14/25 03:32 BP 162/80 H 02/14/25 03:32 Pulse Ox 92 02/14/25 03:32 O2 Del Method Room Air 02/14/25 03:32 O2 Flow Rate 2 02/13/25 21:00 Testing Laboratory Results 02/13/25 06:55 02/13/25 06:55 PT 13.0 Seconds (9.0-12.0) H 02/08/25 21:41 INR 1.2 (0.9-1.1) H 02/08/25 21:41 APTT 31 Seconds (21-31) 02/08/25 21:41 Hemoglobin A1c 5.8 % (4.5-5.6) H 02/09/25 03:56 Urine Color Yellow 02/08/25 21:27 Urine Appearance Clear (Clear) 02/08/25 21: Urine pH 6.0 (4.5-7.5) 02/08/25 21: Ur Specific [place] > 1.045 (1.000-1.030) H 02/08/25 21:27 Urine Protein 2+ (Negative) H 02/08/25 21:27 Urine Glucose (UA) Negative (Negative) 02/08/25 21: Urine Ketones Trace (Negative) H 02/08/25 21:27 Urine Nitrite Negative (Negative) 02/08/25 21:27 Ur Leukocyte Esterase 1+ (Negative) H 02/08/25 21:27 Urine WBC (Auto) 11-20 /hpf (0-5) H 02/08/25 21:27 Urine RBC (Auto) 11-20 /hpf (0-2) H 02/08/25 21:27 U Hyaline Cast (Auto) 0-2 /lpf (0-2) 02/08/25 21:27 U Epithel Cells (Auto) 0-2 /hpf (0-2) 02/08/25 21:27 Urine Bacteria (Auto) None Seen (None Seen) 02/08/25 21:27 02/08/25 21:41 Aerobic Blood Culture - Final Blood No growth in Aerobic bottle after 5 days. Anaerobic Blood Culture - Final No growth in Anaerobic bottle after 5 days. 02/08/25 21:20 Aerobic Blood Culture - Final Blood No growth in Aerobic bottle after 5 days. Anaerobic Blood Culture - Final No growth in Anaerobic bottle after 5 days. 02/10/25 14:27 Gram Stain - Final Abdomen Aerobic and Anaerobic Culture - Preliminary Klebsiella oxytoc/Aspinwall ornith Klebsiella pneumoniae 02/08/25 21:27 Urine Culture - Final Urine,Clean Catch No growth - less than 1,000 colonies/mL. Electrocardiogram Date: 02/11/25 Findings: + NSR @ (@ 83;low voltage QRS) Chest X-Ray Date: 02/11/25 Findings: + pleural effusion (mild B/L ) and + other (ring opacity DANIEL zonesuggestive of cavitation) Echocardiogram Date: 04/06/24 EF: 65% LV Function: normal RWMA: + none Valvular Disease: + no significant valvular disease and + AI (mild) mildly dilated Ascending Aorta Cardiac Catheterization Date: 07/15/21 Findings: + RCA (PDA-prox 50%;PLB prox. 60%), + LMA (LAD-30% prox;D2 50% prox) and + LCX (40% prox)
--- NOTE | 2025-02-14 07:39 | Communication Note ---
Date of Service: February 14, 2025 For ERCP today stent change evaluate for bile leak exclude retained common duct stones. Patient states maybe some increased pain overnight. He is afebrile. Today's labs are pending. Reviewed ERCP with the patient and risks including bleeding perforation pancreatitis informed consent obtained. Abdomen relatively benign on palpation mild distention only. Drain present.
[2025-02-14 07:43] LABS: Immature Granulocytes # (auto) 1.11 K/uL (0.01-0.20); Immature Granulocytes % (auto) 4.1 %
[2025-02-14] MEDS ORDERED: ATROPINE SULFATE 0.1 MG/ML 10ML SYR IV PRN (07:47)
[2025-02-14] MEDS ORDERED: HYDROmorphone INJ 2 MG/ML SYR/VIAL IV PRN (07:47)
[2025-02-14] MEDS ORDERED: HYDROmorphone INJ 1 MG/ML SYRINGE IV PRN (07:47)
[2025-02-14] MEDS ORDERED: ONDANSETRON INJ 2 MG/ML 2 ML VIAL IV PRN (07:47)
[2025-02-14] MEDS: LACTATED RINGER'S 1,000 ML IV SCH (07:48)
[2025-02-14 07:55] LABS: Anion Gap 13.0 (3-11); Blood Urea Nitrogen 19.0 mg/dl (6-23); Calcium 8.4 mg/dl (8.6-10.3); Carbon Dioxide 23.0 mmol/L (21-32); Chloride 102.0 mmol/L (98-107); Creatinine Clr Calc Pharmacy 61.7 ml/min; Glucose 88.0 mg/dl (70-99(Fasting)); Magnesium 2.0 mg/dl (1.7-2.4); Potassium 3.5 mmol/L (3.5-5.1); Sodium 138.0 mmol/L (136-145)
[2025-02-14] MEDS: INDOMETHACIN 50 MG SUPP PR ONE (08:17)
--- NOTE | 2025-02-14 08:50 | Communication Note ---
Date of Service: February 14, 2025 ERCP 7 Romanian 10 cm stent plate present the stent tip was impacted against overlying duodenal fold. There did appear to be some debris within the biliary system. Stent was removed 2 filling defects consistent with stones present which were removed. A larger 10 Romanian 7 cm stent placed. And EXTR 1 to 2 cm of stent was left in the duodenum so not to impact against the large overlying duodenal fold. Good biliary drainage post. Impression cystic duct leak. 2 stones extracted. Exchange of 7 Romanian stent for a 10 send larger diameter stent. I believe the patient will require another drain in the collection and the cystic duct bed. Will review with interventional radiology
--- NOTE | 2025-02-14 08:57 | GI REPORT ---
[facility] Patient: SHOAIB OROSCO : 1945 Sex at : Male Age: 79 Years Procedure: ERCP Date: 02/14/2025 Attending Physician: Mayur Trujillo MD Referring MD: [facility] Indications: - Bile leak, evaluate for persistent leak retained common duct stone and stent patency Medications: - Indomethacin 100 mg HI Complications: - No immediate complications. Estimated Blood Loss: - Estimated blood loss: None. Procedure: - The ercp scope was introduced through the mouth and advanced to the duodenum and used to inject contrast into the bile duct. - The ERCP was accomplished without difficulty. - The patient tolerated the procedure well. Findings: - Olympus video duodenoscope was advanced to the second part of the duodenum. There were multiple duodenal erosions present. There was an indwelling stent which appeared to be 7 Moroccan. The tip and side ports were obscured by a large overlying duodenal fold. It was somewhat difficult to ensnare the distal tip due to its impaction in that fold. Sideport however did appear to be draining mucousy bile material. Stent was then snared and pulled retrogradely through the oropharynx and retrieved. Scope then advanced back to second part of the duodenum. Injection of the bile duct showed some debris and 2 common duct stones. Balloon sweep of the duodenum was undertaken with removal of the stones and debris from the biliary system. With injection appeared to be a leak at the cystic duct. Clips overlying this area. Once the duct was clear a larger 10 Moroccan stent was placed. We did leave an extra centimeter so of the stent in the duodenum so would not become impacted in this large overlying fold. Good biliary drainage post. Impression: - Olympus video duodenoscope was advanced to the second part of the duodenum. There were multiple duodenal erosions present. There was an indwelling stent which appeared to be 7 Moroccan. The tip and side ports were obscured by a large overlying duodenal fold. It was somewhat difficult to ensnare the distal tip due to its impaction in that fold. Sideport however did appear to be draining mucousy bile material. Stent was then snared and pulled retrogradely through the oropharynx and retrieved. Scope then advanced back to second part of the duodenum. Injection of the bile duct showed some debris and 2 common duct stones. Balloon sweep of the duodenum was undertaken with removal of the stones and debris from the biliary system. With injection appeared to be a leak at the cystic duct. Clips overlying this area. Once the duct was clear a larger 10 Moroccan stent was placed. We did leave an extra centimeter so of the stent in the duodenum so would not become impacted in this large overlying fold. Good biliary drainage post. Recommendation: - Follow LFTs. I believe his biliary drain will need to be replaced to drain the collection noted in the cystic duct area. I believe this is the area of ongoing leak. There may be a decrease in the drainage now with removal of common duct stones and placement of a larger Moroccan stent though I believe the bile collection will need to be drained based on leukocytosis and a larger collection in this area. Procedure Code(s): - 02981, Endoscopic retrograde cholangiopancreatography (ERCP); diagnostic, including collection of specimen(s) by brushing or washing, when performed (separate procedure) CPT(R) - 2023 copyright [employer]. All Rights Reserved. The CPT codes, CCI edits and ICD codes generated are intended as suggestions and were generated based on input data. These codes are preliminary and upon promotion producer review may be revised to meet current compliance and payer requirements. The provider is responsible for the final determination of appropriate codes, and modifiers. Mayur Trujillo MD This document has been electronically signed. Note Initiated:02/14/2025 Note Completed:02/14/2025 8:56 AM \\[email or web address]\InterfaceData\Data\Provation\Results\LIVE\[id number]
[2025-02-14] MEDS ORDERED: PHENYLEPHRINE 100MCG/ML 5ML SYR ONE (08:59)
--- NOTE | 2025-02-14 09:29 | Anesthesiology Progress Note ---
Date of Service February 14, 2025 Anesthesia Post Procedure Vital Signs Vital Signs: Temp Pulse Pulse Pulse Resp BP Pulse Ox 02/14/25 09:20 74 22 108/50 L 93 02/14/25 09:10 77 20 108/53 L 93 02/14/25 09:00 79 20 133/73 98 02/14/25 08:52 36.1 C L 84 20 137/71 91 02/14/25 07:40 36.7 C 82 20 159/86 H 92 02/14/25 07:17 83 02/14/25 03:32 37.3 C 82 18 162/80 H 92 02/13/25 23:25 88 02/13/25 22:46 36.3 C L 86 16 163/81 H 91 02/13/25 21:00 02/13/25 19:33 37.7 C H 80 18 153/81 H 91 02/13/25 17:04 81 02/13/25 15:14 37.7 C H 78 20 165/84 H 94 02/13/25 11:30 02/13/25 11:06 36.2 C L 77 18 153/80 H 92 O2 Del Method O2 Flow Rate 02/14/25 09:20 Nasal Cannula 4 02/14/25 09:10 Nasal Cannula 4 02/14/25 09:00 Nasal Cannula 4 02/14/25 08:52 Room Air 02/14/25 07:40 Room Air 02/14/25 07:17 02/14/25 03:32 Room Air 02/13/25 23:25 02/13/25 22:46 Room Air 02/13/25 21:00 Nasal Cannula 2 02/13/25 19:33 Room Air 02/13/25 17:04 02/13/25 15:14 Nasal Cannula 2 02/13/25 11:30 Nasal Cannula 2 02/13/25 11:06 Room Air Pain Intensity Abdomen: Pain Intensity: 5 Transfer of Care Handoff Completed per policy Notes Mental Status: alert / awake / arousable Patient Amnestic to Procedure: Yes Nausea / Vomiting: adequately controlled Pain: adequately controlled Airway Patency, RR, SpO2: stable & adequate BP & HR: stable & adequate Hydration State: stable & adequate Anesthetic Complications: no major complications apparent and Pt Satisfied with anesthetic care
--- NOTE | 2025-02-14 11:14 | Fluoroscopy Report ---
[place] ERCP biliary ductal CLINICAL HISTORY: Stent exchange ERCP COMPARISON STUDY: None FLUOROSCOPY TIME: 4 minutes 30 seconds FLUOROSCOPY IMAGES: 4 EXPOSURE DOSE: 80 mGy FINDINGS: Pigtail drain is present at the right upper quadrant. Surgical clips are present at the rig ht upper quadrant. Endoscope is present at the right upper quadrant. Common duct is cannulated. Contr ast is injected. There is extravasation of contrast from the cystic duct stump. IMPRESSION: 1. Fluoroscopy for ERCP. 2. Contrast extravasation from the cystic duct stump. ACT 112: Negative or not required by law. Electronically signed by: Poncho Soliman M.D. 02/14/2025 11:12 AM
--- NOTE | 2025-02-14 12:28 | Surgery Progress Note ---
Date of Service February 14, 2025 Assessment & Plan (1) Post-operative complication: (2) Bile leak: Plan: POD # 8 s/p laparoscopic cholecystectomy postop bile leak s/p IR drain placement in anterior collection on 02/10/25 wbc increasing today up to 27k (22K yesterday) afebrile abdomen soft, tender in RUQ s/p ERCP with biliary stent exchange and removal of CBD stones, cystic duct leak was seen on ERCP Plan: Continue IV abx continue IR drain to suction Discussed with IR, Manny Rodney PA-C, no good location for another IR drain, gallbladder fossa collection would have to be accessed through liver and would want to avoid this. Full liquid diet continue pain management continue medical management repeat am labs: cbc and cmp Dr. Winslow has seen patient and discussed above with patient's . Admission and Anticipated Discharge Date Admission Date: February 08, 2025 Subjective family at bedside complains of no abdominal pain, n,v wants to eat, hungry Physical Exam Constitutional: cooperative and comfortable; no acute distress and not ill appearing Respiratory: normal respiratory effort; no labored breathing Gastrointestinal (Abdomen): Inspection/Auscultation: abdomen normal to inspection, + abdominal surgical incision (c./d/i with dermabond) and + abdominal surgical drain present (bilious output, minimal); abdomen not distended Percussion/Palpation: abdomen soft; abdomen nontender, no guarding, abdomen not rigid and abdomen not firm Skin: no rashes, warm and dry Psychiatric: Orientation: alert Results & Data Vital Signs (Past 12 Hours) Vital Signs Temp Pulse Pulse Pulse Resp BP Pulse Ox 02/14/25 11:25 36.5 C 72 20 153/81 H 95 02/14/25 10:15 36.7 C 71 18 151/79 H 95 02/14/25 09:35 36.6 C 19 L 22 134/76 96 02/14/25 09:20 74 22 108/50 L 93 02/14/25 09:10 77 20 108/53 L 93 02/14/25 09:00 79 20 133/73 98 02/14/25 08:52 36.1 C L 84 20 137/71 91 02/14/25 07:40 36.7 C 82 20 159/86 H 92 02/14/25 07:17 83 02/14/25 03:32 37.3 C 82 18 162/80 H 92 O2 Del Method O2 Flow Rate 02/14/25 11:25 Nasal Cannula 2 02/14/25 10:15 Nasal Cannula 2 02/14/25 09:35 Nasal Cannula 2 02/14/25 09:20 Nasal Cannula 4 02/14/25 09:10 Nasal Cannula 4 02/14/25 09:00 Nasal Cannula 4 02/14/25 08:52 Room Air 02/14/25 07:40 Room Air 02/14/25 07:17 02/14/25 03:32 Room Air Laboratory Results 02/14/25 Range/Units 07:21 WBC 27.03 H (4.8-10.8) K/ul RBC 4.72 (4.70-6.10) M/uL Hgb 14.0 (14.0-18.0) g/dl Hct 41.0 L (42.0-52.0) % MCV 86.9 (80.0-100.0) fL MCH 29.7 (25.0-34.0) pg MCHC 34.1 (32.0-36.0) g/dL RDW Std Deviation 45.5 (36.4-46.3) fL RDW Coeff of Shira 14.3 (11.5-14.5) % Plt Count 352 (130-400) K/uL MPV 10.3 (9.4-12.4) fL Immature Gran % (Auto) 4.1 % Neut % (Auto) 82.1 % Lymph % (Auto) 7.2 % [place] % (Auto) 5.2 % Eos % (Auto) 0.8 % Baso % (Auto) 0.6 % Neut # (Auto) 22.21 H (1.40-6.50) K/uL Lymph # (Auto) 1.94 (1.20-3.40) K/uL [place] # (Auto) 1.41 H (0.11-0.59) K/uL Eos # (Auto) 0.21 (0.00-0.50) K/uL Baso # (Auto) 0.15 (0.00-0.20) K/uL Immature Gran # (Auto) 1.11 H (0.01-0.20) K/uL Sodium 138 (136-145) mmol/L Potassium 3.5 (3.5-5.1) mmol/L Chloride 102 (98-107) mmol/L Carbon Dioxide 23 (21-32) mmol/L Anion Gap 13 H (3-11) BUN 19 (6-23) mg/dl Creatinine 1.10 (0.6-1.4) mg/dl Est Cr Clr Drug Dosing 61.7 ml/min eGFR 67.44 BUN/Creatinine Ratio 17.3 (10-20) Glucose 88 (70-99(Fasting)) mg/dl Calcium 8.4 L (8.6-10.3) mg/dl Phosphorus 3.2 (2.5-4.9) mg/dl Magnesium 2.0 (1.7-2.4) mg/dl
[2025-02-14] MEDS ORDERED: HYDROmorphone INJ 0.5 MG/0.5 ML SYR IV PRN (13:32)
--- NOTE | 2025-02-14 13:43 | Hospitalist Progress Note ---
Date of Service February 14, 2025 Assessment & Plan (1) Severe sepsis: (2) Peritonitis due to bile: (3) Biloma following surgery: (4) Injury of biliary duct during operative procedure: (5) Cystic duct leak: (6) Calculus of cystic duct with obstruction: (7) Mild chronic obstructive pulmonary disease: (8) Status post laparoscopic cholecystectomy: (9) Coronary artery disease: (10) Dementia: (11) Hypertension: Plan Patient 79-year-old gentleman status postcholecystectomy he is critically ill with biliary and cystic duct leak and obstruction. Evidence of multiple biloma's and peritonitis. Patient continues to require hospital level care including IV antibiotics, spec ialty consultation and evaluation. Patient underwent ERCP today, report reviewed Reviewed culture and sensitivities, continue cefepime Continue to monitor WBCs, increased today, will reevaluate after cystic duct stones removed and larger stent placed Multidisciplinary communication with GI and surgery, Dr. Trujillo, Dr. Winslow. Continue to monitor patient after today's procedure, if not improving in 48 hours consider repeat imaging and possible transfer to higher level of care with more extensive IR capabilities Surgery communicated with interventional radiology here, based on imaging unable to pressure place any additional drains at this time Continue to monitor laboratory studies, electrolytes and renal function Family at bedside and updated 57 minutes spent on review of records, evaluation of patient bedside, documentation, communication with specialist, interpretation of data and orders Admission and Anticipated Discharge Date Admission Date: February 08, 2025 Subjective Patient seen after ERCP this morning. Family at bedside. Denies any significant pain. Wanted to try some oral liquids. Physical Exam Physical Exam: Constitutional: Drowsy, able to answer some questions, moderately ill in appearance HEENT: Mucous membranes dry Lungs: Clear to auscultation, decreased, no wheezes rales or rhonchi CV: S1-S2, regular Abdomen: Soft, some diffuse tenderness, drain in anterior abdomen, incisions healing well Extremities: No significant edema Neuro: No focal deficits, generally weak Psych: Cooperative, Results & Data Results & Data Vital Signs (Past 12 Hours) Vital Signs Temp Pulse Pulse Pulse Resp BP Pulse Ox 02/14/25 11:25 36.5 C 72 20 153/81 H 95 02/14/25 10:35 36.6 C 70 20 146/77 H 94 02/14/25 10:15 36.7 C 71 18 151/79 H 95 02/14/25 09:35 36.6 C 19 L 22 134/76 96 02/14/25 09:20 74 22 108/50 L 93 02/14/25 09:10 77 20 108/53 L 93 02/14/25 09:00 79 20 133/73 98 02/14/25 08:52 36.1 C L 84 20 137/71 91 02/14/25 07:40 36.7 C 82 20 159/86 H 92 02/14/25 07:17 83 02/14/25 03:32 37.3 C 82 18 162/80 H 92 O2 Del Method O2 Flow Rate 02/14/25 11:25 Nasal Cannula 2 02/14/25 10:35 Nasal Cannula 2 02/14/25 10:15 Nasal Cannula 2 02/14/25 09:35 Nasal Cannula 2 02/14/25 09:20 Nasal Cannula 4 02/14/25 09:10 Nasal Cannula 4 02/14/25 09:00 Nasal Cannula 4 02/14/25 08:52 Room Air 02/14/25 07:40 Room Air 02/14/25 07:17 02/14/25 03:32 Room Air Diagnostic Findings Reviewed imaging, laboratory and diagnostic studies. Pertinent findings as below. Reviewed ERCP report, 2 stones removed larger stent in place WBCs 27.03, increased Hemoglobin 14.0 Platelets 352 Electrolytes stable Creatinine 1.[address] abdomen pelvis from 02/13/2025
--- NOTE | 2025-02-14 16:32 | Communication Note ---
Date of Service: February 14, 2025 Post ERCP. Reviewed with patient and findings. She states he thinks he is doing better. Seems more mentally clear. He denies abdominal pain wants to eat more. His drain now has bile within it. Looks clear and noninfective. Observe course if white count not following or improving further bile drainage optimal
[2025-02-15 07:37] LABS: Hematocrit (blood only) 38.6 % (42.0-52.0); Hemoglobin 12.8 g/dl (14.0-18.0); Immature Granulocytes # (auto) 0.63 K/uL (0.01-0.20); Immature Granulocytes % (auto) 3.1 %; Mean Corpuscular Hemoglobin 29.4 pg (25.0-34.0); Mean Corpuscular Volume 88.5 fL (80.0-100.0); Platelet Count 359 K/uL (130-400); RDW Standard Deviation 46.5 fL (36.4-46.3); Red Blood Count 4.36 M/uL (4.70-6.10); White Blood Count 20.30 K/ul (4.8-10.8)
[2025-02-15 07:56] LABS: Alanine Aminotransferase 22.0 U/L (7-52); Albumin Globulin Ratio 1.0 (0.9-2); Alkaline Phosphatase 58.0 U/L (34-104); Anion Gap 8.0 (3-11); Bilirubin,Total 0.7 mg/dl (0.2-1.0); Blood Urea Nitrogen 22.0 mg/dl (6-23); Calcium 8.0 mg/dl (8.6-10.3); Carbon Dioxide 28.0 mmol/L (21-32); Chloride 103.0 mmol/L (98-107); Creatinine Clr Calc Pharmacy 57.0 ml/min; Globulin 2.7 gm/dl (2.5-4.0); Glucose 103.0 mg/dl (70-99(Fasting)); Magnesium 2.1 mg/dl (1.7-2.4); Potassium 3.6 mmol/L (3.5-5.1); Sodium 139.0 mmol/L (136-145); Total Protein 5.4 gm/dl (6.0-8.3)
--- NOTE | 2025-02-15 10:04 | Surgery Progress Note ---
Date of Service February 15, 2025 Assessment & Plan (1) Peritonitis due to bile: Plan: stent replaced and retained stones removed WBC down con't IV abx taking po well Admission and Anticipated Discharge Date Admission Date: February 08, 2025 Subjective feels better minimal pain taking clears well Review of Systems Constitutional: no fever and no chills Respiratory: no cough and no dyspnea Cardiovascular: no chest pain Gastrointestinal: + abdominal pain; no nausea, no vomiting and no change in bowel habits Neurologic: no localized weakness Psychiatric: no behavioral changes Physical Exam Constitutional: WD/WN, vitals as above Eyes: no scleral abnormality Respiratory: normal respiratory effort Cardiovascular: Rate/Rhythm: regular rate and regular rhythm Gastrointestinal (Abdomen): Inspection/Auscultation: abdomen normal to inspection and normal bowel sounds; abdomen not distended Percussion/Palpation: abdomen soft; abdomen nontender Musculoskeletal: Head/Neck/Chest: normocephalic and head atraumatic Skin: no rashes, warm and dry Results & Data Vital Signs (Past 12 Hours) Vital Signs Temp Pulse Resp BP Pulse Ox O2 Del Method O2 Flow Rate 02/15/25 07:28 37.1 C 78 18 142/77 H 93 Room Air 02/14/25 23:26 37.0 C 68 18 151/84 H 94 Nasal Cannula 2 02/14/25 22:18 Room Air
--- NOTE | 2025-02-15 11:29 | Hospitalist Progress Note ---
Date of Service February 15, 2025 Assessment & Plan (1) Severe sepsis: (2) Peritonitis due to bile: (3) Biloma following surgery: (4) Injury of biliary duct during operative procedure: (5) Cystic duct leak: (6) Calculus of cystic duct with obstruction: (7) Mild chronic obstructive pulmonary disease: (8) Status post laparoscopic cholecystectomy: (9) Coronary artery disease: (10) Dementia: (11) Hypertension: Plan Patient has shown significant improvement over the last 24 hours after ERCP with removal of cystic duct stones and an increased size of biliary stent. Continue current antibiotics Therapies Continue to monitor laboratory studies Anticipate if patient continues to improve we will continue on antibiotics and prepare for discharge. Will discuss with GI and surgery when repeat imaging would be appropriate tomorrow. at bedside and updated Communication with case management anticipate patient may need rehab for strengthening prior to returning home Admission and Anticipated Discharge Date Admission Date: February 08, 2025 Subjective Patient states he is feeling significantly improved today. Tolerated his diet. No significant pain. at bedside and also pleased with how he is doing today Physical Exam Physical Exam: Constitutional: Alert, nontoxic in appearance HEENT: Mucous membranes moist. Slight scleral icterus Lungs: Clear to auscultation, decreased, no wheezes rales or rhonchi CV: S1-S2, regular Abdomen: Soft, diffuse generalized tenderness, drain anterior abdomen with clear bile, incisions healing appropriately Extremities: No significant edema Neuro: No focal deficits, generally weak Psych: Cooperative, normal mood Results & Data Results & Data Vital Signs (Past 12 Hours) Vital Signs Temp Pulse Resp BP Pulse Ox O2 Del Method 02/15/25 09:56 Room Air 02/15/25 07:28 37.1 C 78 18 142/77 H 93 Room Air Diagnostic Findings Reviewed imaging, laboratory and diagnostic studies. Pertinent findings as below. WBCs 20.3, significant improvement Hemoglobin 12.8, stable Platelets of 359 Electrolytes within normal limits Creatinine 1.19 LFTs are within normal range
--- NOTE | 2025-02-15 12:05 | Gastroenterology Progress Note ---
Date of Service February 15, 2025 Assessment & Plan (1) Biloma following surgery: (2) Calculus of cystic duct with obstruction: (3) Cystic duct leak: Plan WBC count and abdominal pain improving s/p stent exchange. Continue to monitor for ongoing improvement. Admission and Anticipated Discharge Date Admission Date: February 08, 2025 Subjective Patient is an 79 yo male s/p biliary stent exchange. WBC count is trending down to 20,300. Pain has improved. Biliary drain empty at the time of my evaluation. Patient is afebrile. He continues IV antibiotics. No further complaints. Review of Systems Constitutional: no fever and no chills Gastrointestinal: no abdominal pain (improved) Physical Exam Constitutional: well developed Respiratory: normal respiratory effort Gastrointestinal (Abdomen): Inspection/Auscultation: normal bowel sounds; abdomen not distended Percussion/Palpation: abdomen soft; abdomen nontender Results & Data Results & Data Vital Signs (Past 12 Hours) Vital Signs Temp Pulse Resp BP Pulse Ox O2 Del Method 02/15/25 09:56 Room Air 02/15/25 07:28 37.1 C 78 18 142/77 H 93 Room Air PG Care Time/CCT Total # of Minutes Spent Total Time Spent with Patient: Total time spent is greater than 50% in coordination of care (as documented) at patient's floor/unit and/or counseling patient: Coding Level of Care Code 92748 SUB INP/OBS CARE 2/35MIN Diagnoses Biloma following surgery T81.89XA; K66.8 Calculus of cystic duct with obstruction K80.21 Cystic duct leak K82.8
[2025-02-16 07:00] LABS: Hematocrit (blood only) 39.4 % (42.0-52.0); Hemoglobin 13.1 g/dl (14.0-18.0); Mean Corpuscular Hemoglobin 29.2 pg (25.0-34.0); Mean Corpuscular Volume 87.8 fL (80.0-100.0); Platelet Count 405 K/uL (130-400); RDW Standard Deviation 46.1 fL (36.4-46.3); Red Blood Count 4.49 M/uL (4.70-6.10); White Blood Count 19.26 K/ul (4.8-10.8)
[2025-02-16 07:20] LABS: Anion Gap 7.0 (3-11); Blood Urea Nitrogen 17.0 mg/dl (6-23); Calcium 8.1 mg/dl (8.6-10.3); Carbon Dioxide 29.0 mmol/L (21-32); Chloride 103.0 mmol/L (98-107); Creatinine Clr Calc Pharmacy 58.5 ml/min; Glucose 118.0 mg/dl (70-99(Fasting)); Potassium 3.4 mmol/L (3.5-5.1); Sodium 139.0 mmol/L (136-145)
--- NOTE | 2025-02-16 11:51 | Surgery Progress Note ---
Date of Service February 16, 2025 Assessment & Plan (1) Peritonitis due to bile: (2) Biloma following surgery: (3) Calculus of cystic duct with obstruction: (4) Cystic duct leak: Plan POD # 10 laparoscopic cholecystectomy, s/p ERCP with replacement of CBD stent and removal of retained stones on 02/14/25 wbc trending down but still elevated avss pain improving Plan: Continue IV antibiotics monitor labs specifically wbc, would need to see wbc near normal prior to discontinuing IV abx. low fat diet pain management as needed PT/OT continue IR drain to suction, will be discharged home with drain will need repeat CT scan to assess fluid collections. If patient here through , maybe repeat scan on Thursday. continue medical management Dr. Winslow has seen and examined patient, agrees with above. Admission and Anticipated Discharge Date Admission Date: February 08, 2025 Subjective at bedside feeling better states he is eating low fat diet, not much but eating walking to bathroom no fevers or chills pain improving Physical Exam Constitutional: WD/WN, vitals as above cooperative and comfortable; no acute distress and not ill appearing Respiratory: normal respiratory effort; no respiratory distress and no labored breathing Gastrointestinal (Abdomen): Inspection/Auscultation: abdomen normal to inspection and + abdominal surgical drain present (bilious drainage in bag); abdomen not distended Percussion/Palpation: + abdomen tender (ruq) and abdomen soft; no guarding, abdomen not rigid and abdomen not firm Skin: no rashes, warm and dry Psychiatric: Orientation: alert Results & Data Vital Signs (Past 12 Hours) Vital Signs Temp Pulse Resp BP Pulse Ox O2 Del Method 02/16/25 07:45 36.4 C L 72 18 179/96 H 94 Room Air 02/16/25 00:00 36.7 C 71 18 161/78 H 96 Room Air Laboratory Results 02/16/25 Range/Units 06:31 WBC 19.26 H (4.8-10.8) K/ul RBC 4.49 L (4.70-6.10) M/uL Hgb 13.1 L (14.0-18.0) g/dl Hct 39.4 L (42.0-52.0) % MCV 87.8 (80.0-100.0) fL MCH 29.2 (25.0-34.0) pg MCHC 33.2 (32.0-36.0) g/dL RDW Std Deviation 46.1 (36.4-46.3) fL RDW Coeff of Shira 14.3 (11.5-14.5) % Plt Count 405 H (130-400) K/uL MPV 10.6 (9.4-12.4) fL Sodium 139 (136-145) mmol/L Potassium 3.4 L (3.5-5.1) mmol/L Chloride 103 (98-107) mmol/L Carbon Dioxide 29 (21-32) mmol/L Anion Gap 7 (3-11) BUN 17 (6-23) mg/dl Creatinine 1.16 (0.6-1.4) mg/dl Est Cr Clr Drug Dosing 58.5 ml/min eGFR 63.28 BUN/Creatinine Ratio 14.7 (10-20) Glucose 118 H (70-99(Fasting)) mg/dl Calcium 8.1 L (8.6-10.3) mg/dl
--- NOTE | 2025-02-16 13:29 | Hospitalist Progress Note ---
Date of Service February 16, 2025 Assessment & Plan (1) Severe sepsis: (2) Peritonitis due to bile: (3) Biloma following surgery: (4) Injury of biliary duct during operative procedure: (5) Cystic duct leak: (6) Calculus of cystic duct with obstruction: (7) Mild chronic obstructive pulmonary disease: (8) Status post laparoscopic cholecystectomy: (9) Coronary artery disease: (10) Dementia: (11) Hypertension: Plan Patient seems to be responding to IV antibiotics, continue IV antibiotics until WBC sees close to normal Communication with GI and surgical teams. No indication for reimaging today since the patient is improving. Will need reimaging in the next 1 to 2 weeks. Considering possible HIDA scan prior to removal of the biliary drain Cystic duct stent removal in approximately 6 to 8 weeks Continue with therapies Continue to evaluate patient needs skilled rehab Continue to monitor laboratory studies Replace electrolytes at bedside and agreeable to plan of care. Aware that patient most likely will be discharged with drain in place Admission and Anticipated Discharge Date Admission Date: February 08, 2025 Subjective Patient seen with at bedside. They both agree that they he seems to be improving each day. Healthy appetite. No significant pain. Physical Exam Physical Exam: Constitutional: Alert, nontoxic HEENT: Mucous membranes moist. Lungs: Decreased CV: S1-S2, regular Abdomen: Soft, minimal tenderness, drain anterior abdomen, surgical incisions healing Extremities: No significant edema Neuro: No focal deficits, generally weakness Psych: Cooperative, impaired memory Results & Data Results & Data Vital Signs (Past 12 Hours) Vital Signs Temp Pulse Resp BP Pulse Ox O2 Del Method 02/16/25 07:45 36.4 C L 72 18 179/96 H 94 Room Air Diagnostic Findings Reviewed imaging, laboratory and diagnostic studies. Pertinent findings as below. WBCs 19.2, improved Hemoglobin 13.1 Potassium 3.4 Creatinine 1.16
[2025-02-16] MEDS: ACETAMINOPHEN 325 MG TAB PO PRN (18:22)
--- NOTE | 2025-02-16 19:03 | Communication Note ---
Date of Service: February 16, 2025 Seen at the bedside. continues to feel he is improving. Slowly decreasing white count. Getting some discomfort over his drain site. Minimal if any drainage. Recheck white count in the a.m. Prior to pulling drain consider repeat imaging including potential HIDA scan CT. If white count begins to go back up I be concerned about infected biloma. Will reassess tomorrow.
[2025-02-17] MEDS ORDERED: PHA DELIRIUM CONSULT PRN (01:56)
[2025-02-17 08:31] LABS: Hematocrit (blood only) 41.7 % (42.0-52.0); Hemoglobin 13.9 g/dl (14.0-18.0); Immature Granulocytes # (auto) 0.21 K/uL (0.01-0.20); Immature Granulocytes % (auto) 1.3 %; Mean Corpuscular Hemoglobin 29.1 pg (25.0-34.0); Mean Corpuscular Volume 87.2 fL (80.0-100.0); Platelet Count 469 K/uL (130-400); RDW Standard Deviation 46.0 fL (36.4-46.3); Red Blood Count 4.78 M/uL (4.70-6.10); White Blood Count 15.69 K/ul (4.8-10.8)
[2025-02-17 08:55] LABS: Alanine Aminotransferase 21.0 U/L (7-52); Albumin Globulin Ratio 0.9 (0.9-2); Alkaline Phosphatase 46.0 U/L (34-104); Anion Gap 7.0 (3-11); Bilirubin,Total 0.7 mg/dl (0.2-1.0); Blood Urea Nitrogen 17.0 mg/dl (6-23); Calcium 8.4 mg/dl (8.6-10.3); Carbon Dioxide 28.0 mmol/L (21-32); Chloride 102.0 mmol/L (98-107); Creatinine Clr Calc Pharmacy 62.8 ml/min; Globulin 3.3 gm/dl (2.5-4.0); Glucose 111.0 mg/dl (70-99(Fasting)); Potassium 3.6 mmol/L (3.5-5.1); Sodium 137.0 mmol/L (136-145); Total Protein 6.2 gm/dl (6.0-8.3)
--- NOTE | 2025-02-17 10:16 | Surgery Progress Note ---
Date of Service February 17, 2025 Assessment & Plan (1) Peritonitis due to bile: (2) Biloma following surgery: (3) Calculus of cystic duct with obstruction: (4) Cystic duct leak: Plan POD # 11 laparoscopic cholecystectomy, s/p ERCP with replacement of CBD stent and removal of retained stones on 02/14/25 wbc trending down (15k today 19K yesterday) avss pain improving t. bili and lfts wnl Plan: Continue IV antibiotics monitor labs specifically wbc, would need to see wbc near normal prior to discontinuing IV abx. low fat diet pain management as needed PT/OT continue IR drain to suction, will be discharged home with drain will need repeat CT scan to assess fluid collections. If patient here through , maybe repeat scan on Thursday/Thursday. continue medical management [facility] surgery on for weekend Dr. Winslow has seen and examined patient, agrees with above. Admission and Anticipated Discharge Date Admission Date: February 08, 2025 Subjective at bedside, states he seems like he is doing better eating without difficulty no fevers, chills no n,v some pain at drain site, controlled Physical Exam Constitutional: WD/WN, vitals as above cooperative; no acute distress and not ill appearing Respiratory: normal respiratory effort; no respiratory distress Gastrointestinal (Abdomen): Inspection/Auscultation: abdomen normal to inspection, + abdominal surgical incision (c/d/i with dermabond) and + abdominal surgical drain present (Bilious in bag, minimal some thick purulent drainage in the proximal tubing); abdomen not distended Percussion/Palpation: + abdomen tender (mild at drain site) and abdomen soft; no guarding, abdomen not rigid and abdomen not firm Skin: no rashes, warm and dry no jaundice Psychiatric: Orientation: alert Affect: + flat affect Results & Data Vital Signs (Past 12 Hours) Vital Signs Temp Pulse Resp BP Pulse Ox O2 Del Method 02/17/25 09:57 Room Air 02/17/25 07:42 36.3 C L 69 20 133/75 94 Room Air 02/16/25 22:44 36.6 C 72 18 136/78 93 Room Air Laboratory Results 02/17/25 Range/Units 08:00 WBC 15.69 H (4.8-10.8) K/ul RBC 4.78 (4.70-6.10) M/uL Hgb 13.9 L (14.0-18.0) g/dl Hct 41.7 L (42.0-52.0) % MCV 87.2 (80.0-100.0) fL MCH 29.1 (25.0-34.0) pg MCHC 33.3 (32.0-36.0) g/dL RDW Std Deviation 46.0 (36.4-46.3) fL RDW Coeff of Shira 14.4 (11.5-14.5) % Plt Count 469 H (130-400) K/uL MPV 10.4 (9.4-12.4) fL Immature Gran % (Auto) 1.3 % Neut % (Auto) 77.9 % Lymph % (Auto) 10.5 % [place] % (Auto) 8.2 % Eos % (Auto) 1.6 % Baso % (Auto) 0.5 % Neut # (Auto) 12.23 H (1.40-6.50) K/uL Lymph # (Auto) 1.64 (1.20-3.40) K/uL [place] # (Auto) 1.28 H (0.11-0.59) K/uL Eos # (Auto) 0.25 (0.00-0.50) K/uL Baso # (Auto) 0.08 (0.00-0.20) K/uL Immature Gran # (Auto) 0.21 H (0.01-0.20) K/uL Sodium 137 (136-145) mmol/L Potassium 3.6 (3.5-5.1) mmol/L Chloride 102 (98-107) mmol/L Carbon Dioxide 28 (21-32) mmol/L Anion Gap 7 (3-11) BUN 17 (6-23) mg/dl Creatinine 1.08 (0.6-1.4) mg/dl Est Cr Clr Drug Dosing 62.8 ml/min eGFR 68.94 BUN/Creatinine Ratio 15.7 (10-20) Glucose 111 H (70-99(Fasting)) mg/dl Calcium 8.4 L (8.6-10.3) mg/dl Total Bilirubin 0.7 (0.2-1.0) mg/dl AST 25 (13-39) U/L ALT 21 (7-52) U/L Alkaline Phosphatase 46 (34-104) U/L Total Protein 6.2 (6.0-8.3) gm/dl Albumin 2.9 L (3.4-5.0) gm/dl Globulin 3.3 (2.5-4.0) gm/dl Albumin/Globulin Ratio 0.9 (0.9-2) Microbiology 02/10/25 14:27 Abdomen Gram Stain - Final 02/10/25 14:27 Abdomen Aerobic and Anaerobic Culture - Final Klebsiella oxytoc/Brian ornith Klebsiella pneumoniae 02/08/25 21:41 Blood Aerobic Blood Culture - Final No growth in Aerobic bottle after 5 days. 02/08/25 21:41 Blood Anaerobic Blood Culture - Final No growth in Anaerobic bottle after 5 days. 02/08/25 21:20 Blood Aerobic Blood Culture - Final No growth in Aerobic bottle after 5 days. 02/08/25 21:20 Blood Anaerobic Blood Culture - Final No growth in Anaerobic bottle after 5 days. 02/08/25 21:27 Urine,Clean Catch Urine Culture - Final No growth - less than 1,000 colonies/mL.
--- NOTE | 2025-02-17 10:39 | Hospitalist Progress Note ---
Date of Service February 17, 2025 Assessment & Plan (1) Severe sepsis: (2) Peritonitis due to bile: (3) Biloma following surgery: (4) Injury of biliary duct during operative procedure: (5) Cystic duct leak: (6) Calculus of cystic duct with obstruction: (7) Mild chronic obstructive pulmonary disease: (8) Status post laparoscopic cholecystectomy: (9) Coronary artery disease: (10) Dementia: (11) Hypertension: Plan Patient 79-year-old gentleman presented with severe sepsis due to biliary leak status postcholecystectomy. Subsequently patient post removal cystic duct stones and cystic duct stenting. Patient responding to antibiotic management, continue to monitor WBCs, transition to oral antibiotics when WBC is normalized Continue therapies Communication with surgical team, agreeable with continuing antibiotics for the weekend, rechecking CT of the abdomen either Thursday or Thursday. at bedside updated plan of care, patient strength is rapidly improving anticipate he will be able to go home when he is ready medically for discharge Monitor laboratory studies as needed Admission and Anticipated Discharge Date Admission Date: February 08, 2025 Subjective Overall doing well. states he walked the halls yesterday. Little bit of lower abdominal pain on and off this morning but is moving bowels and able to eat. Physical Exam Physical Exam: Constitutional: Alert, nontoxic HEENT: Mucous membranes moist. Lungs: Clear to auscultation, decreased, no wheezes rales or rhonchi CV: S1-S2, regular Abdomen: Soft, nontender, nondistended, incisions healing well, drain anterior abdomen Extremities: No significant edema Neuro: No focal deficits, generally weak Psych: Cooperative, impaired memory Results & Data Results & Data Vital Signs (Past 12 Hours) Vital Signs Temp Pulse Resp BP Pulse Ox O2 Del Method 02/17/25 09:57 Room Air 02/17/25 07:42 36.3 C L 69 20 133/75 94 Room Air 02/16/25 22:44 36.6 C 72 18 136/78 93 Room Air Diagnostic Findings Reviewed imaging, laboratory and diagnostic studies. Pertinent findings as below. WBCs 15.6, improving Hemoglobin 13.9, stable Electrolytes stable Creatinine 1.08
--- NOTE | 2025-02-17 12:59 | Gastroenterology Progress Note ---
Date of Service February 17, 2025 Assessment & Plan (1) Calculus of cystic duct with obstruction: Plan: Patient continues to drain bile. WBC count improving. -Continue to monitor WBC count -Continue to monitor temp -Will discuss further planning with Dr. Trujillo Admission and Anticipated Discharge Date Admission Date: February 08, 2025 Supervising Physician Co-Signing Physician Notes Draining bile. Feeling better. White count normalizing. Liver test normal. All very encouraging. Agree with continued antibiotics. Follow-up imaging Thursday Subjective Patient is overall feeling much better. He has been up walking. He is draining bile. His WBC count is decreasing to 15,690 today. He denies abdominal pain. No other acute complaints at present. Review of Systems Gastrointestinal: no abdominal pain Physical Exam Gastrointestinal (Abdomen): normal bowel sounds, soft, nontender, no hepatosplenomegaly Results & Data Results & Data Vital Signs (Past 12 Hours) Vital Signs Temp Pulse Resp BP Pulse Ox O2 Del Method 02/17/25 09:57 Room Air 02/17/25 07:42 36.3 C L 69 20 133/75 94 Room Air PG Care Time/CCT Total # of Minutes Spent Total Time Spent with Patient: Total time spent is greater than 50% in coordination of care (as documented) at patient's floor/unit and/or counseling patient: Coding Level of Care Code 01250 SUB INP/OBS CARE 2/35MIN Diagnoses Calculus of cystic duct with obstruction K80.21
--- NOTE | 2025-02-18 09:39 | Surgery Progress Note ---
Date of Service February 18, 2025 Assessment & Plan (1) Biloma following surgery: (2) Cystic duct leak: Plan POD # 12 laparoscopic cholecystectomy, s/p ERCP with replacement of CBD stent and removal of retained stones on 02/14/25 with [facility] wbc previously trending down and was not ordered for this am by primary team or previous consulting surgical team. Pt does appear well this am. May obtain labs for tomorrow am. avss pain improving Plan: Continue IV antibiotics monitor labs specifically wbc, would need to see wbc near normal prior to discontinuing IV abx. continue low fat diet as tolerating pain management as needed PT/OT continue IR drain to suction, will be discharged home with drain will need repeat CT scan to assess fluid collections. If patient here through , maybe repeat scan on Thursday/Thursday. continue medical management [facility] surgery on for weekend and I will follow this weekend Admission and Anticipated Discharge Date Admission Date: February 08, 2025 Subjective Pt ambulating well without complaints. Tolerating oral intake on a low fat diet at this time. Physical Exam Constitutional: + thin; not in distress and not diaphore tic Respiratory: normal respiratory effort; no respiratory distress, no labored breathing and does not use accessory muscles Gastrointestinal (Abdomen): percutaneous drainage bag in place with scant bile Musculoskeletal: no edema Results & Data Vital Signs (Past 12 Hours) Vital Signs Temp Pulse Resp BP Pulse Ox O2 Del Method 02/18/25 08:09 36.4 C L 73 12 129/73 95 Room Air 02/17/25 23:25 36.9 C 78 16 106/64 93 Room Air PG Care Time/CCT Total # of Minutes Spent Total Time Spent with Patient: Total time spent is greater than 50% in coordination of care (as documented) at patient's floor/unit and/or counseling patient: Coding Level of Care Code 32982 Post Operative Follow-Up Diagnoses Biloma following surgery, sequela K66.8; T81.89XS Encounter type: sequela Cystic duct leak K82.8 (1) Biloma following surgery Encounter type: sequela Qualified Code(s): K66.8 - Other specified disorders of peritoneum; T81.89XS - Other complications of procedures, not elsewhere classified, sequela
--- NOTE | 2025-02-18 11:33 | Hospitalist Progress Note ---
Date of Service February 18, 2025 Assessment & Plan (1) Severe sepsis: (2) Peritonitis due to bile: (3) Biloma following surgery: (4) Injury of biliary duct during operative procedure: (5) Cystic duct leak: (6) Calculus of cystic duct with obstruction: (7) Mild chronic obstructive pulmonary disease: (8) Status post laparoscopic cholecystectomy: (9) Coronary artery disease: (10) Dementia: (11) Hypertension: Plan Continue current care, continue current antibiotics Communication with surgical team, anticipating reimaging abdomen either tomorrow or early Thursday morning Continue drainage care Continue to encourage activity Continue other current medications at bedside and updated Plan patient will be able to be discharged home when able to be transition to oral antibiotics and coordinated care with all specialist. Admission and Anticipated Discharge Date Admission Date: February 08, 2025 Subjective Patient continues to do well. Ambulating the halls. Tolerating his diet. No pain. reports that even his mental status is improving and more or less back to his baseline memory issues Physical Exam Physical Exam: Constitutional: Alert, nontoxic, sitting in chair HEENT: Mucous membranes moist. Lungs: Clear to auscultation, decreased, no wheezes rales or rhonchi CV: S1-S2, regular Abdomen: Soft, nontender, nondistended, biliary drain anterior abdomen, incisions healing well Extremities: No significant edema Neuro: No focal deficits Psych: Cooperative, normal mood, impaired memory baseline Results & Data Results & Data Vital Signs (Past 12 Hours) Vital Signs Temp Pulse Resp BP Pulse Ox O2 Del Method 02/18/25 08:09 36.4 C L 73 12 129/73 95 Room Air (3) Biloma following surgery Encounter type: sequela Qualified Code(s): K66.8 - Other specified disorders of peritoneum; T81.89XS - Other complications of procedures, not elsewhere classified, sequela
--- NOTE | 2025-02-18 12:35 | Communication Note ---
Date of Service: February 18, 2025 Chart review seems to be doing okay. Review CBC tomorrow.
--- NOTE | 2025-02-19 05:23 | Surgery Progress Note ---
Date of Service February 19, 2025 Assessment & Plan (1) Biloma following surgery: Plan: Status post laparoscopic cholecystectomy on 02/06/2025: Patient readmitted secondary to biloma resulting in abdominal pain/peritonitis Patient has had IR drain placed on 02/10/2025; will continue this drain to self suction Patient's status post ERCP on 02/14/2025: Choledocholithiasis identified as well as bile leak at the cystic duct stump Pre-existing biliary stent exchanged Continue antibiotics in the form of cefepime and Flagyl Plan as noted for repeat CT scan of the abdomen to assess abdominal fluid collections in the next 24 to 48 hours Continue analgesics as needed Continue diet as tolerated Mobilize as able Check a.m. labs when available Admission and Anticipated Discharge Date Admission Date: February 08, 2025 Supervising Physician Co-Signing Physician Notes I have seen and examined this patient this am. While clinically he does seem to be showing some slow, increments of improvement, his leukocytosis has remained and is stable, his follow up CT A/P today reveals significantly resolved fluid collections. Still residual collections RUQ just outside of the drain and a far lateral and smaller along the right abdominal wall. Recommend consult IR tomorrow to consider additional drainage. One remaining collection in particular is located just beneath the right abdominal wall and should easily be accessible. They will have to determine if they access the remaining collection at the RUQ. Subjective The patient is currently resting comfortably in bed. He is pleasantly confused which is his baseline according to his . His was present at bedside and notes that he is doing better since admission to the hospitalhis abdominal pain is markedly improved and he is tolerating oral intake. Physical Exam Gastrointestinal (Abdomen): Abdomen is soft without distention and minimal to no pain noted with palpation. IR drain is in place draining yellowish/greenish fluid Results & Data Vital Signs (Past 12 Hours) Vital Signs Temp Pulse Resp BP Pulse Ox O2 Del Method O2 Flow Rate 02/19/25 04:05 36.6 C 75 18 129/77 94 Room Air 02/18/25 22:37 36.7 C 84 16 99/66 L 91 Room Air 02/18/25 22:35 Room Air 02/18/25 20:00 Nasal Cannula 2 PG Care Time/CCT Total # of Minutes Spent Total Time Spent with Patient: Total time spent is greater than 50% in coordination of care (as documented) at patient's floor/unit and/or counseling patient: Coding Level of Care Code 28603 Post Operative Follow-Up Diagnoses Biloma following surgery, sequela K66.8; T81.89XS Encounter type: sequela (1) Biloma following surgery Encounter type: sequela Qualified Code(s): K66.8 - Other specified disorders of peritoneum; T81.89XS - Other complications of procedures, not elsewhere classified, sequela
[2025-02-19 06:40] LABS: Hematocrit (blood only) 41.9 % (42.0-52.0); Hemoglobin 13.9 g/dl (14.0-18.0); Mean Corpuscular Hemoglobin 29.3 pg (25.0-34.0); Mean Corpuscular Volume 88.2 fL (80.0-100.0); Platelet Count 577 K/uL (130-400); RDW Standard Deviation 46.3 fL (36.4-46.3); Red Blood Count 4.75 M/uL (4.70-6.10); White Blood Count 15.02 K/ul (4.8-10.8)
[2025-02-19 07:11] LABS: Anion Gap 7.0 (3-11); Blood Urea Nitrogen 20.0 mg/dl (6-23); Calcium 8.6 mg/dl (8.6-10.3); Carbon Dioxide 28.0 mmol/L (21-32); Chloride 103.0 mmol/L (98-107); Creatinine Clr Calc Pharmacy 57.5 ml/min; Glucose 110.0 mg/dl (70-99(Fasting)); Magnesium 2.1 mg/dl (1.7-2.4); Potassium 3.7 mmol/L (3.5-5.1); Sodium 138.0 mmol/L (136-145)
[2025-02-19] MEDS: OPTIRAY 320 100ml IV ONE (09:05)
--- NOTE | 2025-02-19 09:33 | Gastroenterology Progress Note ---
Date of Service February 19, 2025 Assessment & Plan (1) Biloma following surgery: Plan: Outpatient stent removal 4 to 6 weeks. GI signed off reconsult as needed Admission and Anticipated Discharge Date Admission Date: February 08, 2025 Subjective Bile leak Seems to be doing well. Progressively feels better. For follow-up imaging tomorrow. Assuming good report patient can be discharged. Timing of drain removal per surgery. Biliary stent is a 10 [place] stent. This will be need to be removed in 4 to 6 weeks. We will have Abimael López arrange this for end of February 27March Physical Exam Physical Exam: Alert and oriented Benign abdomen drain in place Results & Data Results & Data Vital Signs (Past 12 Hours) Vital Signs Temp Pulse Resp BP Pulse Ox O2 Del Method 02/19/25 08:00 36.4 C L 74 16 115/72 93 Room Air 02/19/25 04:05 36.6 C 75 18 129/77 94 Room Air 02/18/25 22:37 36.7 C 84 16 99/66 L 91 Room Air 02/18/25 22:35 Room Air PG Care Time/CCT Total # of Minutes Spent Total Time Spent with Patient: Total time spent is greater than 50% in coordination of care (as documented) at patient's floor/unit and/or counseling patient: Coding Level of Care Code 44126 SUB INP/OBS CARE 07/23MIN Diagnoses Biloma following surgery, sequela K66.8; T81.89XS Encounter type: sequela (1) Biloma following surgery Encounter type: sequela Qualified Code(s): K66.8 - Other specified disorders of peritoneum; T81.89XS - Other complications of procedures, not elsewhere classified, sequela
--- NOTE | 2025-02-19 12:35 | Hospitalist Progress Note ---
Date of Service February 19, 2025 Assessment & Plan (1) Severe sepsis: (2) Peritonitis due to bile: (3) Biloma following surgery: (4) Injury of biliary duct during operative procedure: (5) Cystic duct leak: (6) Calculus of cystic duct with obstruction: (7) Mild chronic obstructive pulmonary disease: (8) Status post laparoscopic cholecystectomy: (9) Coronary artery disease: (10) Dementia: (11) Hypertension: Plan Patient continues to improve and do well Continue antibiotics Follow-up results of CAT scan Hopefully soon CT shows improvement can consider transition to oral antibiotics Patient is ambulating well strength is improved, anticipate patient will be discharged home on oral antibiotics again if CT improved at bedside updated the plan, aware that discharge would not occur before tomorrow where and we can make sure to coordinate outpatient follow-up plans. Admission and Anticipated Discharge Date Admission Date: February 08, 2025 Subjective No acute issues over the last 24 hours. Patient reports along with his that he has been walking the halls. Tolerating his diet. Eager to get home. Physical Exam Physical Exam: Constitutional: Alert, nontoxic HEENT: Mucous membranes moist. Lungs: Clear to auscultation, decreased, no wheezes rales or rhonchi CV: S1-S2, regular Abdomen: Soft, nontender, nondistended, biliary drain anterior abdomen, incisions healing well, Extremities: No significant edema Neuro: No focal deficits Psych: Cooperative, normal mood, impaired memory Results & Data Results & Data Vital Signs (Past 12 Hours) Vital Signs Temp Pulse Resp BP Pulse Ox O2 Del Method 02/19/25 08:00 36.4 C L 74 16 115/72 93 Room Air 02/19/25 04:05 36.6 C 75 18 129/77 94 Room Air Diagnostic Findings Reviewed imaging, laboratory and diagnostic studies. Pertinent findings as below. WBCs 15.0, slightly improved Hemoglobin 13.9 Electrolytes stable Creatinine 1.18 CT abdomen pelvis, formal radiology report pending. Reviewed images, could still see some fluid collections, however cannot determine if it is unchanged from previous (3) Biloma following surgery Encounter type: sequela Qualified Code(s): K66.8 - Other specified disorders of peritoneum; T81.89XS - Other complications of procedures, not elsewhere classified, sequela
--- NOTE | 2025-02-19 14:51 | CT Scan Report ---
CT SCAN OF THE ABDOMEN AND PELVIS WITH IV CONTRAST CLINICAL HISTORY: Abdominal fluid collections. Bile leak. COMPARISON STUDY: Abdominal CT dated 02/13/2025 TECHNIQUE: Following the IV administration of 94 cc of Optiray 320, CT scan of the abdomen and pelvi s is performed from the lung bases to the proximal femora. Images are reviewed in the axial, sagittal , and coronal planes. IV contrast was administered without complication. A dose lowering technique wa s utilized adhering to the principles of ALARA. CT DOSE: 1258.57 mGy.cm FINDINGS: Lung bases: The heart is mildly enlarged and without pericardial effusion. The coronary arteries are densely calcified. There are small pleural effusions with dependent consolidation. Liver: The contrast-enhanced liver is normal in size, contour, and attenuation. There is minimal cent ral intrahepatic biliary ductal dilatation. A common bile duct stent is unchanged in position. Pneumo bilia suggests patency of the stent. The hepatic veins and portal veins are patent. Scattered subcent imeter hepatic hypodensities likely represent cysts but are too small for definitive characterization . Gallbladder: The gallbladder surgically absent noting clips in the gallbladder fossa. A gas and fluid containing collection in the gallbladder fossa is similar to 02/13/2025 examination, and measures gen[place] roximately 6 x 3 cm in axial dimension as seen on image #118. See below under peritoneum for discussi on of additional fluid collections. Spleen: Normal in size and attenuation. Pancreas: Unremarkable. Adrenal glands: Unremarkable. Kidneys: The contrast enhanced kidneys are normal in size and without hydronephrosis. The kidneys enh ance symmetrically. Renal cysts measuring up to 3.8 cm. Additional subcentimeter cortical hypodensiti es also likely represent cysts but are too small for definitive characterization. A circumaortic left renal vein is incidentally noted. Abdominal vasculature: The abdominal aorta is normal in course and caliber noting moderate atheroscle rotic calcification. Bowel: There is moderate to advanced colonic diverticulosis without CT evidence of acute diverticulit is. No bowel obstruction is seen. The appendix is well-visualized and normal. Peritoneum: No intraperitoneal free air is seen. There is a fat-containing umbilical hernia. A surgic al drain is again seen coiled anterior to the left hepatic lobe from a left mid abdominal approach. A residual fluid collection around the catheter along the anterior left hepatic lobe measures approxim ately 2 x 7.5 x 3 cm as seen on axial image #68. A thick-walled peripherally enhancing fluid collecti on in the left upper quadrant along the greater curvature of the stomach seen on image #56 measures 7 x 3 cm (previously measured 7.7 x 3.1 cm). A thick-walled collection in the right midabdomen between the colon and duodenum seen on image #133 measures approximately 6.5 x 4.5 x 4 cm (previously measur ed 4.3 x 3.1 cm). A thick-walled fluid collection in the right lateral midabdomen below the right hep atic lobe on image #186 measures approximately 6 x 3 cm (previously measured 7 x 3.5 cm). A 4 x 1 cm pocket of fluid is seen along the anterior right hepatic lobe below the diaphragm on image #41, and t here is an approximately 6 x 3 cm thick walled pocket of fluid below the left hemidiaphragm on image #44. Additional small nodular pockets of fluid are seen superficial to the right colon on image 118. There is a thick walled and increasingly organized prerectal fluid collection in the pelvis seen on i mage #294. This measures 4.2 x 3.0 cm. Lymphadenopathy: None. Pelvic viscera: The prostate gland is enlarged and heterogeneous. The bladder wall is thickened/trabe culated indicating chronic outlet obstruction. Skeletal structures: The skeletal structures are osteopenic. There is mild to moderate lumbosacral sp ondylosis. Degenerative sclerosis is noted in the sacroiliac joints and pubic symphysis. No lytic or blastic lesions are seen. IMPRESSION: 1. There is postsurgical change from cholecystectomy and common bile duct stent placement. Pneumobili a suggests patency of the stent. 2. A gas and fluid-containing fluid collection in gallbladder fossa similar appearance to 02/13/2025 a nd may representing a biloma. The sterility of this fluid cannot be assessed on imaging. 3. Numerous additional fluid collections are again seen scattered throughout the abdomen and pelvis a s detailed above. A few of these collections have modestly decrease in size from previous, but also s how increased wall thickening and enhancement as compared to the prior study. These may also represen t bilomas. The sterility of these fluid collections cannot be assessed by imaging. 4. Small pleural effusions with dependent consolidation. 5. Colonic diverticulosis without CT evidence of acute diverticulitis. 6. Additional findings as above. ACT 112: Negative or not required by law. Electronically signed by: Jermaine Albright M.D. 02/19/2025 2:49 PM
[2025-02-20 07:16] LABS: Hematocrit (blood only) 41.7 % (42.0-52.0); Hemoglobin 13.8 g/dl (14.0-18.0); Mean Corpuscular Hemoglobin 29.5 pg (25.0-34.0); Mean Corpuscular Volume 89.1 fL (80.0-100.0); Platelet Count 612 K/uL (130-400); RDW Standard Deviation 46.5 fL (36.4-46.3); Red Blood Count 4.68 M/uL (4.70-6.10); White Blood Count 13.23 K/ul (4.8-10.8)
[2025-02-20 07:51] LABS: Anion Gap 8.0 (3-11); Blood Urea Nitrogen 21.0 mg/dl (6-23); Calcium 8.7 mg/dl (8.6-10.3); Carbon Dioxide 28.0 mmol/L (21-32); Chloride 102.0 mmol/L (98-107); Creatinine Clr Calc Pharmacy 53.0 ml/min; Glucose 110.0 mg/dl (70-99(Fasting)); Potassium 3.8 mmol/L (3.5-5.1); Sodium 138.0 mmol/L (136-145)
[2025-02-20 08:03] VITALS: BP 124/74; PULSE 72; RESP 19; TEMP 97.5; O2SAT 93
--- NOTE | 2025-02-20 08:43 | Surgery Progress Note ---
<Statement entered by Bernadette Montoya DO - 02/20/25 13:23> I saw this patient this am. Dr. Douglas has provided his recommendations and [facility] to follow. Date of Service February 20, 2025 Assessment & Plan (1) Biloma following surgery: Plan: Status post laparoscopic cholecystectomy on 02/06/2025: Patient readmitted secondary to biloma resulting in abdominal pain/peritonitis Patient has had IR drain placed on 02/10/2025; will continue this drain to self suction Patient's status post ERCP on 02/14/2025: Choledocholithiasis identified as well as bile leak at the cystic duct stump Pre-existing biliary stent exchanged Continue antibiotics in the form of cefepime and Flagyl Repeat CT scan performed showing numerous collections that are mostly decreased in size however thick walled in appearance; dr. douglas is aware of the CT scan findings and recommended pt be discharged on abx and been seen in the office sometime next week. send home with IR drain. - Patients WBC is 13 which is downtrending Admission and Anticipated Discharge Date Admission Date: February 08, 2025 Subjective Patient doing fairly well. Offers no complaints this AM Physical Exam Physical Exam: awake, no distress Gastrointestinal (Abdomen): abdominal IR drain in place with minimal fluid in bag Results & Data Vital Signs (Past 12 Hours) Vital Signs Temp Pulse Pulse Resp BP BP Pulse Ox 02/20/25 07:59 97.5 F L 72 19 124/74 93 02/19/25 22:20 97.9 F 80 16 128/79 96 O2 Del Method O2 Flow Rate 02/20/25 07:59 Room Air 02/19/25 22:20 Nasal Cannula 2 PG Care Time/CCT Total # of Minutes Spent Total Time Spent with Patient: Total time spent is greater than 50% in coordination of care (as documented) at patient's floor/unit and/or counseling patient: Coding Level of Care Code 90104 SUB INP/OBS CARE 07/23MIN Diagnoses Biloma following surgery, sequela K66.8; T81.89XS Encounter type: sequela (1) Biloma following surgery Encounter type: sequela Qualified Code(s): K66.8 - Other specified disorders of peritoneum; T81.89XS - Other complications of procedures, not elsewhere classified, sequela
--- NOTE | 2025-02-20 11:10 | Discharge Summary ---
Discharge Summary Date of Service February 20, 2025 Principal Dx & Hospital Course #1 = Principal Diagnosis (1) Severe sepsis: (2) Peritonitis due to bile: (3) Biloma following surgery: (4) Injury of biliary duct during operative procedure: (5) Cystic duct leak: (6) Calculus of cystic duct with obstruction: (7) Mild chronic obstructive pulmonary disease: (8) Status post laparoscopic cholecystectomy: (9) Coronary artery disease: (10) Dementia: (11) Hypertension: Plan Patient is a 79-year-old gentleman who presented to the emergency room for uncontrolled abdominal pain. Patient had undergone interventions for cholecy stitis over the last couple weeks. Initially started with a ERCP for bile duct stone as an outpatient. He then underwent laparoscopic cholecystectomy on 02/06/2025. Return to the ED on 02/08/2025 with severe abdominal pain. In the emergency room imaging was consistent with biliary leak and overall condition was consistent with sepsis due to biliary peritonitis. Patient was admitted to the hospital. He was placed on broad-spectrum antibiotics. Surgery and GI consultations were obtained. Was evaluated by both of those specialists. Did not feel as though there was an immediate need for surgical intervention. Interventional radiology was consulted and a percutaneous drain was placed in the gallbladder fossa. Patient continued to have significant's pain and signs of sepsis. Continue to seem as though he had an ongoing leak. GI took patient for ERCP. Noticed a cystic duct leak as well as cystic duct obstruction. 2 stones were removed and a larger stent was placed. With this intervention the patient started to rapidly improved. His pain improved. His with WBC started to improve. Cultures grew out Klebsiella which was sensitive to the cefepime that he was receiving. Over the course the next multiple days he was followed by GI and surgery. Laboratory studies improved. His diet was advanced. His strength started to return. He continued to have the percutaneous drain. He started to be able to ambulate the halls. Day prior to discharge repeat CT of the abdomen showed's overall stability of the biloma's. This was discussed with surgery. Did not feel that there was any further intervention needed at this time and would follow-up as an outpatient. Based on sensitivities patient be transition to oral antibiotics. Continue for at least another 21 days. Will c oordinate outpatient follow-up with surgery and his PCP. Also need outpatient GI follow-up in approximately 4 to 6 weeks for removal of cystic duct stent. Patient's is at the bedside at all times with the patient. She understands plan of care and plan for discharge and need for follow-up with these multiple specialists. Notes For Next Care Provider Follow-up with surgery for ongoing management of bilomas and post operative evaluations Follow-up with GI for stent removal in approxi-4 to 6 weeks Consider monitoring laboratory studies in approximately 7 to 10 days Medication Changes From Visit [facility] for ongoing antibiotic treatment Probiotic Antihypertensive medications held due to no need for blood pressure medications here in the hospital blood pressures been well-controlled Admission HPI Per Admitting Provider History obtained from patient, family, and records. Limited history from patient secondary to dementia. Medical history significant for hypertension, hyperlipidemia, PVD, TIA, asthma/COPD, NAFLD, choledocholithiasis status post recent ERCP (12/2024) status post cholecystectomy (01/2025), CRI (baseline creatinine 1.4), dementia, BPH, urolithiasis, past tobacco abuse. 01/20 Patient underwent ERCP for bile duct stone on outpatient CT imaging at [facility]. Choledocholithiasis found. Subsequent removal accomplished by biliary sphincterotomy and balloon extraction. CBD stent placed. Repeat ERCP recommended after 6 weeks to remove stent as per endoscopist note. 02/06 Patient underwent elective laparoscopic cholecystectomy for symptomatic cholelithiasis at [facility]. 02/07 Patient evaluated at [facility] in [place], [place] for persistent achy left-sided abdominal discomfort postprocedure. CT abdomen pelvis report as follows : 6.5 x 2.7 x 3 cm fluid collection in the gallbladder fossa tracking fluid into adjacent RUQ mesentery and perihepatic space. Bile leak not excluded. Recommend clinical correlation and nuclear medicine HIDA scan. ED provider unable to transfer patient to [facility] due to lack of beds as per note. Patient refused transfer to another facility and decided to take patient home. 02/08 Patient seen on follow-up at [facility] [place]'s [place] today. Bile leak almost 0 risk as per surgeon note due to prior CBD stent. Patient brought to [facility] ER by due to uncontrolled abdominal pain. Patient denies chest pain, SOB, cough. Zosyn administered at the ER. Medical History as above Surgical History : Cholecystectomy, knee surgery Family History : DM, dementia, RA Personal/Social history : Past tobacco abuse, no EtOH intake, lives with Admission Exam Per Admitting Provider See H&P Discharge Exam Constitutional: Alert, nontoxic HEENT: Mucous membranes moist. Lungs: Clear to auscultation, decreased, no wheezes rales or rhonchi CV: S1-S2, regular Abdomen: Soft, nontender, nondistended, biliary drain anterior abdomen, incisions healing well, no guarding, no rigidity, normoactive bowel sounds Extremities: No significant edema Neuro: No focal deficits Psych: Cooperative, normal mood impaired memory Updated Medication List Medication Instructions Recorded Confirmed Type albuterol sulfate 90 mcg/actuation 1 inh inhalation QID PRN sob 01/31/25 02/08/25 History aerosol inhaler aspirin 81 mg tablet,delayed 81 mg PO QAM 01/31/25 02/08/25 History release cetirizine 10 mg capsule (Allergy 10 mg PO DAILY 01/31/25 02/08/25 History Relief (cetirizine)) cyanocobalamin (vitamin B-12) 1,000 mcg PO 4XWK 01/31/25 02/08/25 History 1,000 mcg capsule donepezil 10 mg tablet 10 mg PO HS 01/31/25 02/08/25 History fluticasone propionate 50 1 spray intranasal BID PRN 01/31/25 02/08/25 History mcg/actuation nasal Congestion spray,suspension lutein 25 mg-zeaxanthin 5 mg 1 cap PO HS 01/31/25 02/08/25 History capsule memantine 10 mg tablet 10 mg PO BID 01/31/25 02/08/25 History fluticasone 100 mcg-salmeterol 50 1 inh inhalation BID 02/06/25 02/08/25 History mcg/dose blistr powdr for inhalation (Advair Diskus) oxycodone-acetaminophen 5 mg-325 1 tab PO Q6H PRN pain #14 tabs 02/06/25 02/08/25 Rx mg tablet (Percocet) lactobacillus combination no.9 4 4,000 mmu cells PO DAILY #30 caps 02/20/25 Rx billion cell capsule (Adult 50 Plus Probiotic) levofloxacin 500 mg tablet 500 mg PO DAILY 21 days #21 tabs 02/20/25 Rx Hospital Stay Data Consultations 02/08/25 21:57 Consult General Surgery Stat 02/08/25 22:29 ED Decision to Admit Stat 02/09/25 12:58 Consult Gastroenterology Routine 02/13/25 12:46 Consult Gastroenterology Routine Procedures Performed Operation Date: 02/14/25 07:00 Actual Procedures p Endoscopic Retrograde Cholangiopancreato with stent placement - Mayur Trujillo MD Diagnostic Imagining Performed 02/08/25 20:55 CT abd pelvis IV con only Stat 02/10/25 10:[address] periton/retro w/gdnce Routine 02/10/25 11:21 MR MRCP Stat 02/11/25 08:01 CT angio chest PE protocol Stat 02/13/25 09:30 CT abd pelvis IV con only Urgent 02/14/25 15:15 FL ERCP biliary ductal Routine 02/19/25 07:30 CT Abd and Pelvis [CT abd pelvis IV con only] Routine Reviewed imaging, laboratory and diagnostic studies. Pertinent findings as below. Biliary culture grew out Klebsiella that was sensitive to cefepime as well as fluoroquinolones WBCs 13.2, significantly improved Hemoglobin 13.8, stable Platelets of 612 Electrolytes within normal range Creatinine 1.28 Hemoglobin [address]1c 5.8% CT abdomen pelvis from 02/19/2025: IMPRESSION: 1. There is postsurgical change from cholecystectomy and common bile duct stent placement. Pneumobilia suggests patency of the stent. 2. A gas and fluid-containing fluid collection in gallbladder fossa similar appearance to 02/13/2025 and may representing a biloma. The sterility of this fluid cannot be assessed on imaging. 3. Numerous additional fluid collections are again seen scattered throughout the abdomen and pelvis as detailed above. A few of these collections have modestly decrease in size from previous, but also show increased wall thickening and enhancement as compared to the prior study. These may also represent bilomas. The sterility of these fluid collections cannot be assessed by imaging. 4. Small pleural effusions with dependent consolidation. 5. Colonic diverticulosis without CT evidence of acute diverticulitis. 6. I refer you to the full report for additional findings EKG, sinus rhythm no acute ST-T wave changes Pending Results Patient Have Any Pending Studies at Discharge: No Discharge Instructions Given to Patient (Per Discharging Provider) Continue with antibiotics Follow-up with Dr. Almanza/Negin Trevizo PA-C as coordinated through their office See instructions below Drain management as coordinated through Dr. Almanza Total Time Total Time Spent Total Time Spent (In Minutes): 39
--- NOTE | 2025-02-21 16:01 | Coding Query ---
SEPSIS To promote full compliance with coding requirements relating to patient care, physician participation is requested in all cases of data coder operator uncertainty. Please assist us with the question(s) below: In responding to this query, please exercise your independent professional judgement. The fact that a question is asked does not imply that any particular answer is desired or expected. We appreciate your clarification on this issue. Throughout the medical record, you have clearly documented a localized infection and your patient has clinical evidence of a generalized sepsis or severe sepsis. The term urosepsis is a nonspecific entity and is coded as an UTI. If the patient has sepsis, severe sepsis, from an urinary source or some other source, please clarify in your response below. The medical record reflects the following clinical findings: (With dates as appropriate) (Body temperature of >38.3 C(101 F) or <36 C(96.8F), pulse >90/minute, respirations >20/minute, WBC count >12,000 or <4,000, altered mental status, significant edema or positive fluid balance, hyperglycemia without diabetes, hypotension, metabolic acidosis (elev. lactate level, anion gap or reduced blood pH), shock, positive blood culture (enter organism) ____ ()Bacteremia (Nonspecific laboratory finding of bacteria in the blood) Specify Organism () Present on Admission () Not present on admission () Unable to clinically determine () Septicemia (Systemic disease associated with the presence of pathogenic microorganisms in the blood): Specify Organism () Present on Admission () Not present on admission () Unable to clinically determine () Sepsis Specify Organism Specify Associated Condition/Diagnosis () Present on Admission () Not present on admission () Unable to clinically determine (x) Severe Sepsis (Sepsis associated with acute organ dysfunction) liver dysfunction and peritonitis, encephalopathy Specify Organism Specify Associated Condition/Diagnosis (x) Present on Admission () Not present on admission () Unable to clinically determine () Septic Shock (Severe sepsis with acute circulatory failure, unexplained by other causes) () Present on Admission () Not present on admission () Unable to clinically determine () Sepsis following procedure () Other, patient has: MTDD
== END 2025-02-20 10:56 | disposition home or self-care (01) | DRG 871 ==
LOC: ED 20:50 → SUATTDRO 22:52 → EDINP 22:52 → 2N 02-09 00:41 → 3E 02-18 22:41

== ENCOUNTER 2025-02-22 19:01 | Inpatient (IN) ==
[2025-02-22 20:00] LABS: Hematocrit (blood only) 45.6 % (42.0-52.0); Hemoglobin 15.6 g/dl (14.0-18.0); Immature Granulocytes # (auto) 0.08 K/uL (0.01-0.20); Immature Granulocytes % (auto) 0.5 %; Mean Corpuscular Hemoglobin 30.2 pg (25.0-34.0); Mean Corpuscular Volume 88.4 fL (80.0-100.0); Platelet Count 682 K/uL (130-400); RDW Standard Deviation 46.6 fL (36.4-46.3); Red Blood Count 5.16 M/uL (4.70-6.10); White Blood Count 14.75 K/ul (4.8-10.8)
[2025-02-22 20:17] LABS: Alanine Aminotransferase 10 U/L (7-52); Albumin Globulin Ratio 0.8 (0.9-2); Alkaline Phosphatase 45 U/L (34-104); Anion Gap 10 (3-11); Bilirubin,Total 0.8 mg/dl (0.2-1.0); Blood Urea Nitrogen 22 mg/dl (6-23); Calcium 9.4 mg/dl (8.6-10.3); Carbon Dioxide 25 mmol/L (21-32); Chloride 101 mmol/L (98-107); Globulin 4.2 gm/dl (2.5-4.0); Glucose 113 mg/dl (70-99(Fasting)); Potassium 4.5 mmol/L (3.5-5.1); Sodium 136 mmol/L (136-145); Total Protein 7.6 gm/dl (6.0-8.3)
[2025-02-22 20:31] LABS: INR 1.2 (0.9-1.1); Partial Thromboplastin Time 28 Seconds (21-31); Prothrombin Time 12.7 Seconds (9.0-12.0)
--- NOTE | 2025-02-22 20:31 | Emergency Department Note ---
Impression & Plan Generalized weakness, Acute dehydration, Leukocytosis ED Provider Note HISTORY OF PRESENT ILLNESS: Patient is an 79-year-old male presenting with generalized weakness. helps provide history. Patient had his gallbladder removed on 02/06/2025 and had complications and required a drain to be placed. He was just discharged from the hospital 3 days ago. reports that the patient has had a significant decline in the last 72 hours. Reports that he is barely eating or drinking anything and he is too weak to get up and get around. He was sent home on oral antibiotics after discharge from the hospital, but does not feel that these are helping. Reports that he had laboratory workup that showed his white blood cell count is steadily increasing from 13-16,000. No reported fevers or chills at home. Patient reports he has no appetite. Denies any chest pain or shortness of breath. He denies any significant abdominal pain. ROS: as above PHYSICAL EXAM: Constitutional: Patient appears in no acute distress. HENT: Head: Normocephalic and atraumatic. Eyes: EOMI, PERRL Mouth/Throat: Mucous membranes moist. Neck: Trachea midline. Neck supple. Cardiovascular: RRR, No murmurs, rubs or gallops. Intact distal pulses. Pulmonary/Chest: No respiratory distress. Breath sounds clear and equal bilaterally. No wheezes or rales. Abdominal: Abdomen soft, no tenderness, rebound or guarding. Drain noted to mid- upper abdomen. Musculoskeletal: No edema, tenderness or deformity noted. Skin: Warm and dry. No rash, erythema, pallor or cyanosis Psychiatric: Appropriate mood and affect for situation. Neurological: Alert and keenly responsive. CN II-XII grossly intact, moving all extremities equally and fully. MDM: - Vitals signs showed tachycardia - History obtained via patient. History as above. - Chronic conditions affecting care: HTN; HLD; dementia; CAD; COPD - Differential diagnoses include, but are not limited to: Bacteremia; UTI; viral syndrome; pneumonia; electrolyte abnormality; dehydration intra-abdominal infection; - Order placed for continuous cardiac monitoring. At this time, monitor showed rate of 97 bpm with normal sinus rhythm, per my interpretation. - External medical records reviewed. Discharge summary dated 02/20/2025 was reviewed. Patient was admitted for uncontrolled abdominal pain and found to have severe sepsis secondary to biloma and peritonitis due to bile. - EKG image interpreted by myself showed normal sinus rhythm. Rate 93 bpm. QT 366. No acute ischemic changes. - Laboratory workup interpreted by myself showed leukocytosis (WBC 14.75); thrombocytosis (plt 682); elevated INR (1.2); stable electrolytes; normal AST/ALT; normal lactate; normal procalcitonin - CT abdomen/pelvis with IV contrast showed resolving fluid collection along the right hemidiaphragm and a resolving fluid collection in the gallbladder fossa. Noted to have a persistent fluid collection in the right upper quadrant that seems stable. - Patient given 1L NS. Given IV zosyn. - Discussed results with the patient and his at bedside. Patient is still quite lethargic and not feeling well. He has generalized weakness and no specific complaints just states that he does not feel well. Will discuss case with hospitalist service for further evaluation. - Discussion was had with skilled nursing case manager about patient's case and need for admission - Hospitalist consulted for admission - Patient admitted to [facility] hospitalist service for further evaluation and management. ASSESSMENT AND PLAN: Diagnosis: Generalized weakness; leukocytosis; acute dehydration Plan: Admit Past Med/Surg History Problem List (Updated 02/22/25 @ 22:51 by Karyn Trevino MD) Leukocytosis (Acute) Acute dehydration (Acute) Generalized weakness (Acute) Peritonitis due to bile Biloma following surgery Calculus of cystic duct with obstruction Cystic duct leak Injury of biliary duct during operative procedure Status post laparoscopic cholecystectomy Bile leak Severe sepsis Post-operative complication (Acute) Sepsis (Acute) Abdominal pain Cholelithiasis Encounter for pre-operative examination Medical History Mild chronic obstructive pulmonary disease Per [place] [facility] [place] Dyslipidemia [place] [facility] [place] Coronary artery disease [place] [facility] [place] Nonobstructive CAD on 2021 cardiac cath 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 Arthritis Dementia " states will not leave alone because of safety" will be present DOS per PAT RN History of TIA (transient ischemic attack) 10+ years ago Hypertension Asthma Surgical History History of cardiac cath 2021 H/O colonoscopy with polypectomy History of anesthesia reaction ERCP; [facility] (01/20/25) > "Required inhaler" Anesthesia records scanned into chart: "Comments: Patient responded very well to the duo-nebulizer treatment; he is 96% SaO2, comfortable and essentially back to his baseline." History of knee replacement procedure of right knee History of tooth extraction History of tonsillectomy H/O bilateral cataract extraction History of ERCP (01/20/25) ERCP; [facility] Family History Other No family history of adverse response to anesthesia Social History Smoking Status: Never smoker Tobacco Type: Cigarettes Second Hand Exposure: No; Do You Dip or Chew Tobacco: No; Hx Alcohol Use: No Hx Substance Use: No Preferred Language: Latvian Communication Ability: Effective Sales Secretary Required: No Beliefs That Will Affect Care: None Current Living Situation: Spouse Current Living Situation Comment: + adult granddaughter Feels Safe at Home: Yes Assistive Devices: Cane and Walker Allergies Allergies Allergy/AdvReac Type Severity Reaction Status Date / Time cortisone Allergy Mild Cortisone Verified 02/14/25 07:39 cream ("made things worse") Home Meds Home Medications Medication Instructions Recorded Confirmed albuterol sulfate 90 mcg/actuation 1 inh inhalation QID PRN sob 01/31/25 02/22/25 aerosol inhaler aspirin 81 mg tablet,delayed 81 mg PO QAM 01/31/25 02/22/25 release cetirizine 10 mg capsule (Allergy 10 mg PO DAILY 01/31/25 02/22/25 Relief (cetirizine)) cyanocobalamin (vitamin B-12) 1,000 mcg PO 4XWK 01/31/25 02/22/25 1,000 mcg capsule donepezil 10 mg tablet 10 mg PO HS 01/31/25 02/22/25 fluticasone propionate 50 1 spray intranasal BID PRN 01/31/25 02/22/25 mcg/actuation nasal Congestion spray,suspension lutein 25 mg-zeaxanthin 5 mg 1 cap PO HS 01/31/25 02/22/25 capsule memantine 10 mg tablet 10 mg PO BID 01/31/25 02/22/25 fluticasone 100 mcg-salmeterol 50 1 inh inhalation BID 02/06/25 02/22/25 mcg/dose blistr powdr for inhalation (Advair Diskus) Previous Rx's Medication Instructions Recorded oxycodone-acetaminophen 5 mg-325 1 tab PO Q6H PRN pain #14 tabs 02/06/25 mg tablet (Percocet) lactobacillus combination no.9 4 4,000 mmu cells PO DAILY #30 caps 02/20/25 billion cell capsule (Adult 50 Plus Probiotic) levofloxacin 500 mg tablet 500 mg PO DAILY 21 days #21 tabs 02/20/25 Results & Data (ED) Vital Signs Vital Signs - 24 hr 02/22/25 19:08 02/22/25 20:13 02/22/25 20:30 Temperature 36.4 C L Temperature Source Temporal Artery Scan Pulse Rate 111 H 99 H Pulse Rate [Apical] 97 H Respiratory Rate 18 18 Respiratory Effort / Characteristics Non-Labored Spontaneous Non-Labored Spontaneous Respiratory Depth Normal Normal Respiratory Pattern Regular Blood Pressure 100/64 Blood Pressure [Right Arm] 117/77 Blood Pressure Mean 76 Blood Pressure Mean [Right Arm] 90 Blood Pressure Position [Right Arm] Semi-fowlers Pulse Oximetry 92 93 Oxygen Delivery Method Room Air Room Air Sepsis Recent Fever Within 48 Hours No Sepsis New/Unexplained Change in Mental Status No Sepsis Action Taken by Nursing No Action Required 02/22/25 22:30 Temperature Temperature Source Pulse Rate Pulse Rate [Apical] 90 Respiratory Rate 22 Respiratory Effort / Characteristics Non-Labored Spontaneous Respiratory Depth Normal Respiratory Pattern Regular Blood Pressure Blood Pressure [Right Arm] 121/80 Blood Pressure Mean Blood Pressure Mean [Right Arm] 93 Blood Pressure Position [Right Arm] Semi-fowlers Pulse Oximetry 99 Oxygen Delivery Method Room Air Sepsis Recent Fever Within 48 Hours Sepsis New/Unexplained Change in Mental Status Sepsis Action Taken by Nursing Laboratory Data 02/22/25 19:47 02/22/25 19:47 Lab Results 02/22/25 Range/Units 19:47 WBC 14.75 H (4.8-10.8) K/ul RBC 5.16 (4.70-6.10) M/uL Hgb 15.6 (14.0-18.0) g/dl Hct 45.6 (42.0-52.0) % MCV 88.4 (80.0-100.0) fL MCH 30.2 (25.0-34.0) pg MCHC 34.2 (32.0-36.0) g/dL RDW Std Deviation 46.6 H (36.4-46.3) fL RDW Coeff of Shira 14.4 (11.5-14.5) % Plt Count 682 H (130-400) K/uL MPV 10.3 (9.4-12.4) fL Immature Gran % (Auto) 0.5 % Neut % (Auto) 76.5 % Lymph % (Auto) 11.9 % [place] % (Auto) 9.7 % Eos % (Auto) 0.9 % Baso % (Auto) 0.5 % Neut # (Auto) 11.28 H (1.40-6.50) K/uL Lymph # (Auto) 1.75 (1.20-3.40) K/uL [place] # (Auto) 1.43 H (0.11-0.59) K/uL Eos # (Auto) 0.13 (0.00-0.50) K/uL Baso # (Auto) 0.08 (0.00-0.20) K/uL Immature Gran # (Auto) 0.08 (0.01-0.20) K/uL PT 12.7 H (9.0-12.0) Seconds INR 1.2 H (0.9-1.1) APTT 28 (21-31) Seconds PTT Ratio 1.0 Sodium 136 (136-145) mmol/L Potassium 4.5 (3.5-5.1) mmol/L Chloride 101 (98-107) mmol/L Carbon Dioxide 25 (21-32) mmol/L Anion Gap 10 (3-11) BUN 22 (6-23) mg/dl Creatinine 1.34 (0.6-1.4) mg/dl Est Cr Clr Drug Dosing Not Reportable eGFR 53.22 BUN/Creatinine Ratio 16.4 (10-20) Glucose 113 H (70-99(Fasting)) mg/dl Lactate 1.5 (0.4-2.0) mmol/L Calcium 9.4 (8.6-10.3) mg/dl Total Bilirubin 0.8 (0.2-1.0) mg/dl AST 13 (13-39) U/L ALT 10 (7-52) U/L Alkaline Phosphatase 45 (34-104) U/L Total Protein 7.6 (6.0-8.3) gm/dl Albumin 3.4 (3.4-5.0) gm/dl Globulin 4.2 H (2.5-4.0) gm/dl Albumin/Globulin Ratio 0.8 L (0.9-2) Procalcitonin 0.47 (0-0.5) ng/ml Administered Medications Discontinued Medications Sodium Chloride (Nss) 1,000 mls @ 999 mls/hr IV .Q1H1M ONE Stop: 02/22/25 21:13 Last Infusion: 02/22/25 22:30 Dose: Infused Documented By: Admin: 02/22/25 20:34 Dose: 999 mls/hr Documented By: MESSI Ioversol (Optiray 320 100ml) 90 ml IV ONCE ONE Stop: 02/22/25 20:51 Last Admin: 02/22/25 20:50 Dose: 90 ml Documented By: DEVORAH Imaging Data Radiologist's Impression: Abdomen/Pelvis CT 02/22/25 20:13 Exam(s): CT ABDOMEN + PELVIS With Contrast IV Amt: 90 ml optiray 320 EXAM: CT Abdomen and Pelvis With Intravenous Contrast CLINICAL HISTORY: Reason for exam: abd pain; weakness. TECHNIQUE: Axial computed tomography images of the abdomen and pelvis with intravenous contrast. CTDI is 22.93 mGy and DLP is 1164.61 mGy-cm. Automated exposure control was utilized for the study. A dose lowering technique was utilized adhering to the principles of ALARA. CONTRAST: Patient received 90 ml optiray 320 of IV contrast COMPARISON: 02/19/2025 FINDINGS: Lung bases: See below. Pleural space: Worsening bilateral pleural effusions with compressive atelectasis of both lobes. ABDOMEN: Liver: Small residual fluid collection subtending the right hemidiaphragm along the right hepatic dome measures 2.5 x 1.6 cm. Small fluid collection investing itself between the diaphragm in the left hepatic lobe contains a percutaneous catheter. This has significantly decreased in size since the prior exam where it previously measures 3 x 5. 3 cm and currently measures 1.9 x 4.3 cm. Gallbladder and bile ducts: 5.5 x 2.4 cm fluid collection within the gallbladder fossa likely represents small biloma is unchanged from prior study. Internalized common bile duct stent. Postoperative changes prior cholecystectomy with a 4.1 x 2.1 cm fluid collection within the gallbladder fossa. There are 2 tiny locules of air immediately adjacent to this fluid collection. Postop changes prior cholecystectomy with placement of an internalized biliary stent. This results in mild pneumobilia. Pancreas: Unremarkable. No mass. No ductal dilation. Spleen: Unremarkable. No splenomegaly. Adrenals: Unremarkable. No mass. Kidneys and ureters: Unremarkable. No solid mass. No hydronephrosis. Stomach and bowel: Thick-walled fluid-filled collection investing itself between the colon in the duodenum in the right upper quadrant measures 6.5 x 4.5 x 4.0 cm. This is unchanged from prior exam. Small fluid collection seen along the right hepatic dome just beneath the right hemidiaphragm has not changed since prior exam. No obstruction. PELVIS: Appendix: No findings to suggest acute appendicitis. Bladder: Unremarkable. No mass. Reproductive: Unremarkable as visualized. ABDOMEN and PELVIS: Intraperitoneal space: Unremarkable. No free air. No significant fluid collection. Bones/joints: No acute fracture. No dislocation. Soft tissues: Unremarkable. Vasculature: Unremarkable. No abdominal aortic aneurysm. Lymph nodes: Unremarkable. No enlarged lymph nodes. IMPRESSION: Resolving fluid collection along the right hemidiaphragm measuring 2.5 cm. 4.1 cm fluid collection within the gallbladder fossa slightly decreased in size from prior exam where it measured 5.4 cm. Persistent fluid collection within the right upper quadrant investing itself between the colon in the duodenum stable since prior study Electronically signed by: Chi Boone MD 02/22/25 22:37 PM Discharge Plan Visit Data Chief Complaint: Illness Stated Complaint: WHITE BLOOD CELL COUNT UP, ED Provider: Karyn Trevino Discharge Problem: Generalized weakness, Acute dehydration, Leukocytosis Condition: Fair Forms Stand Alone Forms: My [facility] Prescriptions Prescriptions: No Action levofloxacin 500 mg tablet 500 mg PO DAILY 21 Days Qty: 21 0RF Adult 50 Plus Probiotic 4 billion cell capsule 4,000 mmu cells PO DAILY Qty: 30 0RF Rx Instructions: administer with a meal donepezil 10 mg Tablet 10 mg PO HS aspirin 81 mg Tablet,Delayed Release (Dr/Ec) 81 mg PO QAM albuterol sulfate 90 mcg/actuation Hfa Aerosol Inhaler 1 inh INHALATION QID PRN (Reason: sob) fluticasone propionate 50 mcg/actuation [place],Suspension 1 spray INTRANASAL BID PRN (Reason: Congestion) Rx Instructions: administer into each nostril memantine 10 mg Tablet 10 mg PO BID Allergy Relief (cetirizine) 10 mg Capsule 10 mg PO DAILY lutein-zeaxanthin 25-5 mg Capsule 1 cap PO HS cyanocobalamin (vitamin B-12) 1,000 mcg Capsule 1,000 mcg PO 4XWK fluticasone propion-salmeterol [Advair Diskus] 100-50 mcg/dose Blister With Device 1 inh INHALATION BID oxycodone-acetaminophen [Percocet] 5-325 mg tablet 1 tab PO Q6H PRN (Reason: pain) Qty: 14 0RF Referrals Referrals: [facility] [Primary Care Provider] -
[2025-02-22] MEDS: SODIUM CHLORIDE 0.9% 1,000 ML IV ONE (20:34)
[2025-02-22] MEDS: OPTIRAY 320 100ml IV ONE (20:50)
--- NOTE | 2025-02-22 22:38 | CT Scan Report ---
Exam(s): CT ABDOMEN + PELVIS With Contrast IV Amt: 90 ml optiray 320 EXAM: CT Abdomen and Pelvis With Intravenous Contrast CLINICAL HISTORY: Reason for exam: abd pain; weakness. TECHNIQUE: Axial computed tomography images of the abdomen and pelvis with intravenous contrast. CTDI is 22.93 mGy and DLP is 1164.61 mGy-cm. Automated exposure control was utilized for the study. A dose lowering technique was utilized adhering to the principles of ALARA. CONTRAST: Patient received 90 ml optiray 320 of IV contrast COMPARISON: 02/19/2025 FINDINGS: Lung bases: See below. Pleural space: Worsening bilateral pleural effusions with compressive atelectasis of both lobes. ABDOMEN: Liver: Small residual fluid collection subtending the right hemidiaphragm along the right hepatic dome measures 2.5 x 1.6 cm. Small fluid collection investing itself between the diaphragm in the left hepatic lobe contains a percutaneous catheter. This has significantly decreased in size since the prior exam where it previously measures 3 x 5. 3 cm and currently measures 1.9 x 4.3 cm. Gallbladder and bile ducts: 5.5 x 2.4 cm fluid collection within the gallbladder fossa likely represents small biloma is unchanged from prior study. Internalized common bile duct stent. Postoperative changes prior cholecystectomy with a 4.1 x 2.1 cm fluid collection within the gallbladder fossa. There are 2 tiny locules of air immediately adjacent to this fluid collection. Postop changes prior cholecystectomy with placement of an internalized biliary stent. This results in mild pneumobilia. Pancreas: Unremarkable. No mass. No ductal dilation. Spleen: Unremarkable. No splenomegaly. Adrenals: Unremarkable. No mass. Kidneys and ureters: Unremarkable. No solid mass. No hydronephrosis. Stomach and bowel: Thick-walled fluid-filled collection investing itself between the colon in the duodenum in the right upper quadrant measures 6.5 x 4.5 x 4.0 cm. This is unchanged from prior exam. Small fluid collection seen along the right hepatic dome just beneath the right hemidiaphragm has not changed since prior exam. No obstruction. PELVIS: Appendix: No findings to suggest acute appendicitis. Bladder: Unremarkable. No mass. Reproductive: Unremarkable as visualized. ABDOMEN and PELVIS: Intraperitoneal space: Unremarkable. No free air. No significant fluid collection. Bones/joints: No acute fracture. No dislocation. Soft tissues: Unremarkable. Vasculature: Unremarkable. No abdominal aortic aneurysm. Lymph nodes: Unremarkable. No enlarged lymph nodes. IMPRESSION: Resolving fluid collection along the right hemidiaphragm measuring 2.5 cm. 4.1 cm fluid collection within the gallbladder fossa slightly decreased in size from prior exam where it measured 5.4 cm. Persistent fluid collection within the right upper quadrant investing itself between the colon in the duodenum stable since prior study Electronically signed by: Chi Boone MD 02/22/25 22:37 PM
[2025-02-22] MEDS: PIPERACILLIN/TAZOBACTAM 4.5 GM/100 ML BAG IV ONE (23:55)
--- NOTE | 2025-02-23 00:30 | XRay Report ---
Exam(s): XR CXR 1 VIEW EXAM: XR Chest, 1 View CLINICAL HISTORY: Reason for exam: generalized weakness. TECHNIQUE: Frontal view of the chest. COMPARISON: No relevant prior studies available. FINDINGS: Lungs: Right lower lobe infiltrate. Pleural space: Unremarkable. No pneumothorax. Heart: Unremarkable. No cardiomegaly. Mediastinum: Unremarkable. Normal mediastinal contour. Bones/joints: Unremarkable. No acute fracture. IMPRESSION: Right lower lobe pneumonia Electronically signed by: Chi Boone MD 02/23/25 00:29 AM
--- NOTE | 2025-02-23 00:36 | History & Physical Report ---
Date of Service February 22, 2025 Assessment & Plan (1) Generalized weakness: Plan: 79-year-old male with past medical history significant for hyperlipidemia, moderate persistent asthma, allergic rhinitis, history of TIA, hypertension, B12 deficiency, obesity, CKD stage III, memory deficit who was recently in the hospital for severe sepsis secondary to peritonitis due to biliary leak and discharged on 02/20/2025 with 21 days of Levaquin comes because of weakness and not feeling well. As per the patient is mostly in the recliner. Not moving much. Not eating much. Seems weak. Went to [facility] today and labs showed increasing WBC and was advised to come to the hospital. Denies any fevers. Had abdominal pain yesterday but currently no pain. Bowel movements are normal. No blood in stools or black stools. Micturating okay. Not draining much from biliary drain. Denies any chest pain or shortness of breath. No cough. No fevers. No headache. No runny nose or sore throat. Currently resting comfortably and hemodynamics are okay. Recently patient had ERCP for bile duct stone as an outpatient. He then underwent laparoscopic cholecystectomy on on 02/06/2025. Came to the ER on 02/08/2025 with severe abdominal pain. Imaging studies were consistent with biliary leak and consistent with sepsis due to biliary peritonitis. Surgery and GI saw the patient. Interventional radiology was consulted for percutaneous drain and was placed in the gallbladder fossa. As the patient continued to have significant pain and sepsis and possibility of ongoing leak, GI took patient for ERCP. Noticed a cystic duct leak as well as cystic duct obstruction and 2 stones were removed and larger stent was placed and with this intervention patient improved. There is a plan to follow-up with GI in 4 to 6 weeks for removal of cystic duct stent. Patient still has percutaneous drain and was told that it will be there until end of February. Generalized weakness Leukocytosis Will follow UA Denies diarrhea On Levaquin for 21 days from 02/20/2025 for biliary leak postcholecystectomy. Patient is status post cystic duct stent placement last admission and also percutaneous drainage placed. Abdominal cultures were growing Klebsiella cocci which is resistant to Zosyn and Rocephin. And also Klebsiella pneumonia which was pansensitive While inpatient will hold Levaquin and place on Invanz Gentle fluids CT abdomen pelvis" resolving fluid collection in the right hemidiaphragm. Slightly decreased fluid collection in the gallbladder fossa. Persistent fluid collection in the right upper quadrant between the colon and the duodenum stable from prior study". Consult surgery-appreciate inputs Continue percutaneous drain until further recommendation by surgery Follow-up with GI as planned Moderate persistent asthma Allergic rhinitis Continue home meds Memory deficit On donezepil and memantine History of TIA Peripheral vascular disease On aspirin DVT prophylaxis Lovenox Disposition Medical floor Full code. History of Present Illness Chief Complaint: Illness Primary Care Provider: [facility] 79-year-old male with past medical history significant for hyperlipidemia, moderate persistent asthma, allergic rhinitis, history of TIA, hypertension, B12 deficiency, obesity, CKD stage III, memory deficit who was recently in the hospital for severe sepsis secondary to peritonitis due to biliary leak and discharged on 02/20/2025 with 21 days of Levaquin comes because of weakness and not feeling well. As per the patient is mostly in the recliner. Not moving much. Not eating much. Seems weak. Went to [facility]CP [facility] today and labs showed increasing WBC and was advised to come to the hospital. Denies any fevers. Had abdominal pain yesterday but currently no pain. Bowel movements are normal. No blood in stools or black stools. Micturating okay. Not draining much from biliary drain. Denies any chest pain or shortness of breath. No cough. No fevers. No headache. No runny nose or sore throat. Currently resting comfortably and hemodynamics are okay. Recently patient had ERCP for bile duct stone as an outpatient. He then underwent laparoscopic cholecystectomy on on 02/06/2025. Came to the ER on 02/08/2025 with severe abdominal pain. Imaging studies were consistent with biliary leak and consistent with sepsis due to biliary peritonitis. Surgery and GI saw the patient. Interventional radiology was consulted for percutaneous drain and was placed in the gallbladder fossa. As the patient continued to have significant pain and sepsis and possibility of ongoing leak ,GI took patient for ERCP. Noticed a cystic duct leak as well as cystic duct obstruction and 2 stones were removed and larger stent was placed and with this intervention patient improved. There is a plan to follow-up with GI in 4 to 6 weeks for removal of cystic duct stent. Patient still has percutaneous drain and was told that it will be there until end of February. Past medical history. As mentioned above. Past surgical history. Laparoscopic cholecystectomy. ERCP. Biliary stent placement. Biliary percutaneous drain. Colonoscopy. EGD with endoscopic ultrasound. Knee arthroscopy. Social history. . No smoking. No alcohol use. No drug use. Family history. Mother had rheumatoid arthritis. Father had Alzheimer's disease. Sister had diabetes. Allergies Allergy/AdvReac Type Severity Reaction Status Date / Time cortisone Allergy Mild Cortisone Verified 02/14/25 07:39 cream ("made things worse") Home Medications Medication Instructions Recorded Confirmed Type albuterol sulfate 90 mcg/actuation 1 inh inhalation QID PRN sob 01/31/25 02/22/25 History aerosol inhaler aspirin 81 mg tablet,delayed 81 mg PO QAM 01/31/25 02/22/25 History release cetirizine 10 mg capsule (Allergy 10 mg PO DAILY 01/31/25 02/22/25 History Relief (cetirizine)) cyanocobalamin (vitamin B-12) 1,000 mcg PO 4XWK 01/31/25 02/22/25 History 1,000 mcg capsule donepezil 10 mg tablet 10 mg PO HS 01/31/25 02/22/25 History fluticasone propionate 50 1 spray intranasal BID PRN 01/31/25 02/22/25 History mcg/actuation nasal Congestion spray,suspension lutein 25 mg-zeaxanthin 5 mg 1 cap PO HS 01/31/25 02/22/25 History capsule memantine 10 mg tablet 10 mg PO BID 01/31/25 02/22/25 History fluticasone 100 mcg-salmeterol 50 1 inh inhalation BID 02/06/25 02/22/25 History mcg/dose blistr powdr for inhalation (Advair Diskus) oxycodone-acetaminophen 5 mg-325 1 tab PO Q6H PRN pain #14 tabs 02/06/25 02/22/25 Rx mg tablet (Percocet) lactobacillus combination no.9 4 4,000 mmu cells PO DAILY #30 caps 02/20/25 02/22/25 Rx billion cell capsule (Adult 50 Plus Probiotic) levofloxacin 500 mg tablet 500 mg PO DAILY 21 days #21 tabs 02/20/25 02/22/25 Rx Past Med/Surg History Problem List (Updated 02/22/25 @ 22:51 by Karyn Trevino MD) Leukocytosis (Acute) Acute dehydration (Acute) Generalized weakness (Acute) Peritonitis due to bile Biloma following surgery Calculus of cystic duct with obstruction Cystic duct leak Injury of biliary duct during operative procedure Status post laparoscopic cholecystectomy Bile leak Severe sepsis Post-operative complication (Acute) Sepsis (Acute) Abdominal pain Cholelithiasis Encounter for pre-operative examination Medical History Mild chronic obstructive pulmonary disease Per [facility] Dyslipidemia [facility] Coronary artery disease Per [facility] Nonobstructive CAD on 2021 cardiac cath 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 Arthritis Dementia " states will not leave alone because of safety" will be present DOS per PAT RN History of TIA (transient ischemic attack) 10+ years ago Hypertension Asthma Surgical History History of cardiac cath 2021 H/O colonoscopy with polypectomy History of anesthesia reaction ERCP; [facility] (01/20/25) > "Required inhaler" Anesthesia records scanned into chart: "Comments: Patient responded very well to the duo-nebulizer treatment; he is 96% SaO2, comfortable and essentially back to his baseline." History of knee replacement procedure of right knee History of tooth extraction History of tonsillectomy H/O bilateral cataract extraction History of ERCP (01/20/25) ERCP; [facility] Family History Other No family history of adverse response to anesthesia Social History Smoking Status: Never smoker Tobacco Type: Cigarettes Second Hand Exposure: No; Do You Dip or Chew Tobacco: No; Hx Alcohol Use: No Hx Substance Use: No Preferred Language: Macedonian Communication Ability: Effective 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 ENT- oropharynx clear Neck- supple, no JVD. Lungs- clear to auscultation no wheezing or crackles Heart- regular rate and rhythm; no murmur, no gallop. Abdomen- normal bowel sounds, soft, nontender, no distension. Biliary drain seen. Healing laparoscopic incision sites Extremities- no pretibial edema, no erythema seen Neuro- alert, oriented PERRL, no facial palsy; no dysarthria; moves extremities Results & Data Results & Data Vital Signs (Past 12 Hours) Vital Signs Temp Pulse Pulse Resp BP BP Pulse Ox 02/22/25 22:30 90 22 121/80 99 02/22/25 20:30 97 H 18 117/77 93 02/22/25 20:13 99 H 02/22/25 19:08 36.4 C L 111 H 18 100/64 92 O2 Del Method 02/22/25 22:30 Room Air 02/22/25 20:30 Room Air 02/22/25 20:13 02/22/25 19:08 Room Air Diagnostic Findings Laboratory Results WBC 14.75 K/ul (4.8-10.8) H 02/22/25 19:47 RBC 5.16 M/uL (4.70-6.10) 02/22/25 19:47 Hgb 15.6 g/dl (14.0-18.0) 02/22/25 19:47 Hct 45.6 % (42.0-52.0) 02/22/25 19:47 MCV 88.4 fL (80.0-100.0) 02/22/25 19:47 MCH 30.2 pg (25.0-34.0) 02/22/25 19:47 MCHC 34.2 g/dL (32.0-36.0) 02/22/25 19:47 RDW Std Deviation 46.6 fL (36.4-46.3) H 02/22/25 19:47 RDW Coeff of Shira 14.4 % (11.5-14.5) 02/22/25 19:47 Plt Count 682 K/uL (130-400) H 02/22/25 19:47 MPV 10.3 fL (9.4-12.4) 02/22/25 19:47 Immature Gran % (Auto) 0.5 % 02/22/25 19:47 Neut % (Auto) 76.5 % 02/22/25 19:47 Lymph % (Auto) 11.9 % 02/22/25 19:47 [place] % (Auto) 9.7 % 02/22/25 19:47 Eos % (Auto) 0.9 % 02/22/25 19:47 Baso % (Auto) 0.5 % 02/22/25 19:47 Neut # (Auto) 11.28 K/uL (1.40-6.50) H 02/22/25 19:47 Lymph # (Auto) 1.75 K/uL (1.20-3.40) 02/22/25 19:47 [place] # (Auto) 1.43 K/uL (0.11-0.59) H 02/22/25 19:47 Eos # (Auto) 0.13 K/uL (0.00-0.50) 02/22/25 19:47 Baso # (Auto) 0.08 K/uL (0.00-0.20) 02/22/25 19:47 Immature Gran # (Auto) 0.08 K/uL (0.01-0.20) 02/22/25 19:47 PT 12.7 Seconds (9.0-12.0) H 02/22/25 19:47 INR 1.2 (0.9-1.1) H 02/22/25 19:47 APTT 28 Seconds (21-31) 02/22/25 19:47 PTT Ratio 1.0 02/22/25 19:47 Sodium 136 mmol/L (136-145) 02/22/25 19:47 Potassium 4.5 mmol/L (3.5-5.1) 02/22/25 19:47 Chloride 101 mmol/L (98-107) 02/22/25 19:47 Carbon Dioxide 25 mmol/L (21-32) 02/22/25 19:47 Anion Gap 10 (3-11) 02/22/25 19:47 BUN 22 mg/dl (6-23) 02/22/25 19:47 Creatinine 1.34 mg/dl (0.6-1.4) 02/22/25 19:47 Est Cr Clr Drug Dosing Not Reportable 02/22/25 19:47 eGFR 53.22 02/22/25 19:47 BUN/Creatinine Ratio 16.4 (10-20) 02/22/25 19:47 Glucose 113 mg/dl (70-99(Fasting)) H 02/22/25 19:47 Lactate 1.5 mmol/L (0.4-2.0) 02/22/25 19:47 Calcium 9.4 mg/dl (8.6-10.3) 02/22/25 19:47 Total Bilirubin 0.8 mg/dl (0.2-1.0) 02/22/25 19:47 AST 13 U/L (13-39) 02/22/25 19:47 ALT 10 U/L (7-52) 02/22/25 19:47 Alkaline Phosphatase 45 U/L (34-104) 02/22/25 19:47 Total Protein 7.6 gm/dl (6.0-8.3) 02/22/25 19:47 Albumin 3.4 gm/dl (3.4-5.0) 02/22/25 19:47 Globulin 4.2 gm/dl (2.5-4.0) H 02/22/25 19:47 Albumin/Globulin Ratio 0.8 (0.9-2) L 02/22/25 19:47 Procalcitonin 0.47 ng/ml (0-0.5) 02/22/25 19:47 Impressions Abdomen/Pelvis CT 02/22/25 20:13 Exam(s): CT ABDOMEN + PELVIS With Contrast IV Amt: 90 ml optiray 320 EXAM: CT Abdomen and Pelvis With Intravenous Contrast CLINICAL HISTORY: Reason for exam: abd pain; weakness. TECHNIQUE: Axial computed tomography images of the abdomen and pelvis with intravenous contrast. CTDI is 22.93 mGy and DLP is 1164.61 mGy-cm. Automated exposure control was utilized for the study. A dose lowering technique was utilized adhering to the principles of ALARA. CONTRAST: Patient received 90 ml optiray 320 of IV contrast COMPARISON: 02/19/2025 FINDINGS: Lung bases: See below. Pleural space: Worsening bilateral pleural effusions with compressive atelectasis of both lobes. ABDOMEN: Liver: Small residual fluid collection subtending the right hemidiaphragm along the right hepatic dome measures 2.5 x 1.6 cm. Small fluid collection investing itself between the diaphragm in the left hepatic lobe contains a percutaneous catheter. This has significantly decreased in size since the prior exam where it previously measures 3 x 5. 3 cm and currently measures 1.9 x 4.3 cm. Gallbladder and bile ducts: 5.5 x 2.4 cm fluid collection within the gallbladder fossa likely represents small biloma is unchanged from prior study. Internalized common bile duct stent. Postoperative changes prior cholecystectomy with a 4.1 x 2.1 cm fluid collection within the gallbladder fossa. There are 2 tiny locules of air immediately adjacent to this fluid collection. Postop changes prior cholecystectomy with placement of an internalized biliary stent. This results in mild pneumobilia. Pancreas: Unremarkable. No mass. No ductal dilation. Spleen: Unremarkable. No splenomegaly. Adrenals: Unremarkable. No mass. Kidneys and ureters: Unremarkable. No solid mass. No hydronephrosis. Stomach and bowel: Thick-walled fluid-filled collection investing itself between the colon in the duodenum in the right upper quadrant measures 6.5 x 4.5 x 4.0 cm. This is unchanged from prior exam. Small fluid collection seen along the right hepatic dome just beneath the right hemidiaphragm has not changed since prior exam. No obstruction. PELVIS: Appendix: No findings to suggest acute appendicitis. Bladder: Unremarkable. No mass. Reproductive: Unremarkable as visualized. ABDOMEN and PELVIS: Intraperitoneal space: Unremarkable. No free air. No significant fluid collection. Bones/joints: No acute fracture. No dislocation. Soft tissues: Unremarkable. Vasculature: Unremarkable. No abdominal aortic aneurysm. Lymph nodes: Unremarkable. No enlarged lymph nodes. IMPRESSION: Resolving fluid collection along the right hemidiaphragm measuring 2.5 cm. 4.1 cm fluid collection within the gallbladder fossa slightly decreased in size from prior exam where it measured 5.4 cm. Persistent fluid collection within the right upper quadrant investing itself between the colon in the duodenum stable since prior study Electronically signed by: Chi Boone MD 02/22/25 22:37 PM Chest X-Ray 02/22/25 22:51 Exam(s): XR CXR 1 VIEW EXAM: XR Chest, 1 View CLINICAL HISTORY: Reason for exam: generalized weakness. TECHNIQUE: Frontal view of the chest. COMPARISON: No relevant prior studies available. FINDINGS: Lungs: Right lower lobe infiltrate. Pleural space: Unremarkable. No pneumothorax. Heart: Unremarkable. No cardiomegaly. Mediastinum: Unremarkable. Normal mediastinal contour. Bones/joints: Unremarkable. No acute fracture. IMPRESSION: Right lower lobe pneumonia Electronically signed by: Chi Boone MD 02/23/25 00:29 AM ECG Additional Comments: ECG. Normal sinus rhythm rate of 93. Q waves inferior leads. QTc 455 Code Status & VTE Plan VTE Prophylaxis Plan VTE Prophylaxis will be ordered: Yes
[2025-02-23] MEDS ORDERED: ALBUTEROL HFA 8 GM INHALER INH PRN (00:42)
[2025-02-23] MEDS ORDERED: FLUTICASONE PROPIONATE NA SPR 16 GM BTL PRN (00:42)
[2025-02-23] MEDS ORDERED: ACETAMINOPHEN 325 MG TAB PO PRN (00:42)
--- NOTE | 2025-02-23 01:13 | Surgery Consultation ---
Date of Consultation February 23, 2025 Assessment & Plan (1) Generalized weakness: The patient is an 79-year-old male who recently underwent outpatient ERCP with biliary stent placement by Jp SAINZ (01/20/2025) for choledocholithiasis, laparoscopic cholecystectomy by Dr. Almanza (02/06/2025), admitted to the hospital on 02/08/2025 with a biloma resulting in abdominal pain/peritonitis. During that hospital stay he underwent IR drainage (02/10/2025) and repeat ERCP (02/14/2025) where a bile leak was identified at the stump of the cystic duct and the stent was exchanged. The patient was discharged home on 02/20/2025 with 21 days of Levaquin to continue however due to ongoing weakness and abnormal WBC on outpatient labs obtained by his PCP he came back to the ER. The patient has been admitted to the medical service at this time and general surgery was consulted given recent surgery/bile leak. The patient was seen and evaluated at bedside early this morning, from a surgical perspective recommend the following: -Patient clinically looks ok, he is comfortable and has no abdominal pain on exam. Denies N/V, and incisions are healing appropriately. -IR drain is in place and according to his at bedside, the drain has never been emptied since being placed. There is roughly 40cc of bile-tinged fluid appreciated. -Patient was on Levaquin for antibiotic coverage, agree with switching to IV abx. Continue to trend WBC -Would recommend keeping patient NPO for now and I will discuss the case with attending surgeon, Dr. Cam, this morning. We could potentially reach back out to IR to again evaluate the fluid collections/current IR drain for possible blockage. -Continue medical management per primary team, surgery will follow and provide additional recommendatoins (2) Leukocytosis: (3) Status post laparoscopic cholecystectomy: (4) Injury of biliary duct during operative procedure: Supervising Physician Co-Signing Physician Notes I personally saw and evaluated the patient with Lacho Salamanca PA-C and agree with the assessment and plan. 79-year-old male status post laparoscopic cholecystectomy complicated by biloma/bile leak status post IR drainage with persistent intra-abdominal fluid collections Will reach out to IR to see if there is any accessible fluid collections for drainage Otherwise there is not much surgically to offer the patient, the fluid collections are decreasing slowly in size He also has a patent common duct stent in place Will follow History of Present Illness Reason for Consultation: recent cholecystectomy w/bile leak History of Present Illness The patient is an 79-year-old male who presented to the emergency room due to concerns of generalized weakness and abnormal labs obtained by his PCP. To note, the patient underwent an outpatient ERCP by Jp SAINZ on 01/20/2025 for choledocholithiasis and had a biliary stent placed at that time. The patient subsequently underwent a laparoscopic cholecystectomy by Dr. Almanza on 02/06/2025. However following surgery, the patient continued with abdominal pain and presented back to the hospital on 02/08/2025 and he was found to have a biloma resulting in abdominal pain/peritonitis. The patient was being treated conservatively however due to increasing WBC he had an IR drain placed on 02/10/2025 and also underwent an ERCP on 02/14/2025 which revealed choledocholithiasis as well as a bile leak at the stump of the cystic duct and the stent was exchanged. The patient was discharged home on 02/20/2025 with 21 days of Levaquin to continue. However, the patient presented back to the emergency room late last evening due to concerns of weakness and overall not feeling well. He is accompanied by his who gives most of his history due to his dementia. She states that he has progressively gotten more weak and is not moving or eating too much since being discharged home. She also states that his IR drain has not put much out since being placed in the hospital. The patient was worked up in the ER and was found to have a WBC of 14.[address] findings with resolving fluid collection in the right hemidiaphragm, slightly decreased fluid collection in the gallbladder fossa, persistent fluid collection in the right upper quadrant between the colon and the duodenum that is stable from prior study that was just performed on 02/19/2025. The patient denies having any abdominal pain and states he is able to keep down what he does eat. He denies any N/V, fevers, chills or CP/SOB. Allergies Allergy/AdvReac Type Severity Reaction Status Date / Time cortisone Allergy Mild Cortisone Verified 02/14/25 07:39 cream ("made things worse") Home Medications Medication Instructions Recorded Confirmed Type albuterol sulfate 90 mcg/actuation 1 inh inhalation QID PRN sob 01/31/25 02/22/25 History aerosol inhaler aspirin 81 mg tablet,delayed 81 mg PO QAM 01/31/25 02/22/25 History release cetirizine 10 mg capsule (Allergy 10 mg PO DAILY 01/31/25 02/22/25 History Relief (cetirizine)) cyanocobalamin (vitamin B-12) 1,000 mcg PO 4XWK 01/31/25 02/22/25 History 1,000 mcg capsule donepezil 10 mg tablet 10 mg PO HS 01/31/25 02/22/25 History fluticasone propionate 50 1 spray intranasal BID PRN 01/31/25 02/22/25 History mcg/actuation nasal Congestion spray,suspension lutein 25 mg-zeaxanthin 5 mg 1 cap PO HS 01/31/25 02/22/25 History capsule memantine 10 mg tablet 10 mg PO BID 01/31/25 02/22/25 History fluticasone 100 mcg-salmeterol 50 1 inh inhalation BID 02/06/25 02/22/25 History mcg/dose blistr powdr for inhalation (Advair Diskus) oxycodone-acetaminophen 5 mg-325 1 tab PO Q6H PRN pain #14 tabs 02/06/25 02/22/25 Rx mg tablet (Percocet) lactobacillus combination no.9 4 4,000 mmu cells PO DAILY #30 caps 02/20/25 02/22/25 Rx billion cell capsule (Adult 50 Plus Probiotic) levofloxacin 500 mg tablet 500 mg PO DAILY 21 days #21 tabs 02/20/25 02/22/25 Rx Patient History Medical History Mild chronic obstructive pulmonary disease Per [facility] Dyslipidemia [place] [facility] Coronary artery disease Per [facility] Nonobstructive CAD on 2021 cardiac cath 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 Arthritis Dementia " states will not leave alone because of safety" will be present DOS per PAT RN History of TIA (transient ischemic attack) 10+ years ago Hypertension Asthma Surgical History History of cardiac cath 2021 H/O colonoscopy with polypectomy History of anesthesia reaction ERCP; [facility] (01/20/25) > "Required inhaler" Anesthesia records scanned into chart: "Comments: Patient responded very well to the duo-nebulizer treatment; he is 96% SaO2, comfortable and essentially back to his baseline." History of knee replacement procedure of right knee History of tooth extraction History of tonsillectomy H/O bilateral cataract extraction History of ERCP (01/20/25) ERCP; [facility] Family History Other No family history of adverse response to anesthesia Social History Smoking Status: Never smoker Tobacco Type: Cigarettes Second Hand Exposure: No; Do You Dip or Chew Tobacco: No; Hx Alcohol Use: No Hx Substance Use: No Preferred Language: Mongolian Communication Ability: Effective Paint Mixer Required: No Beliefs That Will Affect Care: None Current Living Situation: Spouse Current Living Situation Comment: + adult granddaughter Feels Safe at Home: Yes Assistive Devices: Cane and Walker Review of Systems Constitutional: + weakness; no fever and no chills Respiratory: no cough and no chest congestion Cardiovascular: no chest pain, no palpitations and no syncope Gastrointestinal: as per Subjective / HPI; no nausea and no vomiting Physical Exam Constitutional: WD/WN, vitals as above Respiratory: normal respiratory effort, lungs clear to auscultation Cardiovascular: Rate/Rhythm: regular rate Gastrointestinal (Abdomen): Abdomen soft, nondistended, nontender to palpation. +Incisions healing well, c/d/i with Derm abond in place. +IR drain with minimal bile-tinged fluid in bag Skin: no rashes, warm and dry Results & Data Vital Signs (Past 12 Hours) Vital Signs Temp Pulse Pulse Resp BP BP Pulse Ox 02/23/25 01:00 113/70 02/23/25 00:48 95 H 23 93 02/23/25 00:42 95 H 23 93 02/23/25 00:30 92 H 20 93 02/23/25 00:30 107/70 02/23/25 00:30 107/70 02/23/25 00:30 107/70 02/23/25 00:23 114/81 02/23/25 00:12 120 H 17 94 02/22/25 23:45 93 H 19 117/74 100 02/22/25 23:33 90 23 92 02/22/25 23:30 117/74 02/22/25 23:30 117/74 02/22/25 23:21 93 H 25 H 93 02/22/25 23:03 90 23 95 02/22/25 23:00 119/75 02/22/25 23:00 119/75 02/22/25 23:00 119/75 02/22/25 22:51 86 22 97 02/22/25 22:45 91 H 27 H 96 02/22/25 22:30 121/80 02/22/25 22:30 90 22 121/80 99 02/22/25 22:24 93 H 23 93 02/22/25 22:21 89 18 95 02/22/25 22:15 90 22 96 02/22/25 22:00 129/87 02/22/25 22:00 129/87 02/22/25 21:57 93 H 22 94 02/22/25 21:33 91 H 21 95 02/22/25 21:30 133/80 02/22/25 21:30 133/80 02/22/25 21:15 96 H 20 95 02/22/25 21:12 94 H 19 96 02/22/25 21:09 93 H 22 96 02/22/25 20:30 96 H 18 91 02/22/25 20:30 117/77 02/22/25 20:30 117/77 02/22/25 20:30 117/77 02/22/25 20:30 117/77 02/22/25 20:30 97 H 18 117/77 93 02/22/25 20:15 99 H 21 92 02/22/25 20:13 99 H 02/22/25 20:09 96 H 17 94 02/22/25 19:08 36.4 C L 111 H 18 100/64 92 O2 Del Method 02/23/25 01:00 02/23/25 00:48 02/23/25 00:42 02/23/25 00:30 02/23/25 00:30 02/23/25 00:30 02/23/25 00:30 02/23/25 00:23 02/23/25 00:12 02/22/25 23:45 02/22/25 23:33 02/22/25 23:30 02/22/25 23:30 02/22/25 23:21 02/22/25 23:03 02/22/25 23:00 02/22/25 23:00 02/22/25 23:00 02/22/25 22:51 02/22/25 22:45 02/22/25 22:30 02/22/25 22:30 Room Air 02/22/25 22:24 02/22/25 22:21 02/22/25 22:15 02/22/25 22:00 02/22/25 22:00 02/22/25 21:57 02/22/25 21:33 02/22/25 21:30 02/22/25 21:30 02/22/25 21:15 02/22/25 21:12 02/22/25 21:09 02/22/25 20:30 02/22/25 20:30 02/22/25 20:30 02/22/25 20:30 02/22/25 20:30 02/22/25 20:30 Room Air 02/22/25 20:15 02/22/25 20:13 02/22/25 20:09 02/22/25 19:08 Room Air Diagnostic Findings Exam(s): CT ABDOMEN + PELVIS With Contrast IV Amt: 90 ml optiray 320 EXAM: CT Abdomen and Pelvis With Intravenous Contrast CLINICAL HISTORY: Reason for exam: abd pain; weakness. TECHNIQUE: Axial computed tomography images of the abdomen and pelvis with intravenous contrast. CTDI is 22.93 mGy and DLP is 1164.61 mGy-cm. Automated exposure control was utilized for the study. A dose lowering technique was utilized adhering to the principles of ALARA. CONTRAST: Patient received 90 ml optiray 320 of IV contrast COMPARISON: 02/19/2025 FINDINGS: Lung bases: See below. Pleural space: Worsening bilateral pleural effusions with compressive atelectasis of both lobes. ABDOMEN: Liver: Small residual fluid collection subtending the right hemidiaphragm along the right hepatic dome measures 2.5 x 1.6 cm. Small fluid collection investing itself between the diaphragm in the left hepatic lobe contains a percutaneous catheter. This has significantly decreased in size since the prior exam where it previously measures 3 x 5. 3 cm and currently measures 1.9 x 4.3 cm. Gallbladder and bile ducts: 5.5 x 2.4 cm fluid collection within the gallbladder fossa likely represents small biloma is unchanged from prior study. Internalized common bile duct stent. Postoperative changes prior cholecystectomy with a 4.1 x 2.1 cm fluid collection within the gallbladder fossa. There are 2 tiny locules of air immediately adjacent to this fluid collection. Postop changes prior cholecystectomy with placement of an internalized biliary stent. This results in mild pneumobilia. Pancreas: Unremarkable. No mass. No ductal dilation. Spleen: Unremarkable. No splenomegaly. Adrenals: Unremarkable. No mass. Kidneys and ureters: Unremarkable. No solid mass. No hydronephrosis. Stomach and bowel: Thick-walled fluid-filled collection investing itself between the colon in the duodenum in the right upper quadrant measures 6.5 x 4.5 x 4.0 cm. This is unchanged from prior exam. Small fluid collection seen along the right hepatic dome just beneath the right hemidiaphragm has not changed since prior exam. No obstruction. PELVIS: Appendix: No findings to suggest acute appendicitis. Bladder: Unremarkable. No mass. Reproductive: Unremarkable as visualized. ABDOMEN and PELVIS: Intraperitoneal space: Unremarkable. No free air. No significant fluid collection. Bones/joints: No acute fracture. No dislocation. Soft tissues: Unremarkable. Vasculature: Unremarkable. No abdominal aortic aneurysm. Lymph nodes: Unremarkable. No enlarged lymph nodes. IMPRESSION: Resolving fluid collection along the right hemidiaphragm measuring 2.5 cm. 4.1 cm fluid collection within the gallbladder fossa slightly decreased in size from prior exam where it measured 5.4 cm. Persistent fluid collection within the right upper quadrant investing itself between the colon in the duodenum stable since prior study PG Care Time/CCT Total # of Minutes Spent Total Time Spent with Patient: Total time spent is greater than 50% in coordination of care (as documented) at patient's floor/unit and/or counseling patient: [place] [address] INT INP/OBS CARE 1/40MIN Patient Type Established Medical Decision Making Straight Forward Diagnoses Generalized weakness R53.1 Leukocytosis D72.829 Status post laparoscopic cholecystectomy Z90.49 Injury of biliary duct during operative procedure K91.81
[2025-02-23] MEDS: LACTATED RINGER'S 1,000 ML IV SCH (01:29)
[2025-02-23] MEDS: ERTAPENEM 1000MG 1,000 MG/10 ML SYR IV SCH (01:45)
[2025-02-23 05:18] LABS: Appearance Urine Clear (Clear); Bacteria Urine Automated None Seen (None Seen); Cast Urine Automated 0-2 /lpf (0-2); Epithelial Cell Urine Auto 0-2 /hpf (0-2); Glucose Urine UA Negative (Negative); RBC Urine Automated 0-2 /hpf (0-2)
[2025-02-23] MEDS: Patient's HEIGHT &/or WEIGHT Needed STA (06:59)
[2025-02-23] MEDS: ENOXAPARIN INJ 40 MG/0.4 ML SYR SQ SCH (09:11)
[2025-02-23] MEDS: FLUTICASONE/VILANTEROL 100/25MCG 14 PUFFS/INHALER INH SCH (09:12)
[2025-02-23] MEDS: ADVANCED PROBIOTIC 625 MG CAPSULE PO SCH (09:13)
[2025-02-23] MEDS: ASPIRIN 81 MG ECTAB PO SCH (09:13)
[2025-02-23] MEDS: MEMANTINE HCL 10 MG TAB PO SCH (09:13)
[2025-02-23] MEDS: CETIRIZINE HCL 10 MG TABLET PO SCH (09:14)
[2025-02-23 09:20] LABS: Hematocrit (blood only) 39.4 % (42.0-52.0); Hemoglobin 13.1 g/dl (14.0-18.0); Mean Corpuscular Hemoglobin 29.8 pg (25.0-34.0); Mean Corpuscular Volume 89.7 fL (80.0-100.0); Platelet Count 594 K/uL (130-400); RDW Standard Deviation 46.8 fL (36.4-46.3); Red Blood Count 4.39 M/uL (4.70-6.10); White Blood Count 13.70 K/ul (4.8-10.8)
--- NOTE | 2025-02-23 09:26 | Hospitalist Progress Note ---
Date of Service February 23, 2025 Assessment & Plan (1) Generalized weakness: Plan: 79-yo M with hyperlipidemia, moderate persistent asthma, allergic rhinitis, history of TIA, hypertension, B12 deficiency, obesity, CKD stage III, memory deficit who was recently in the hospital for severe sepsis secondary to peritonitis due to biliary leak and discharged on 02/20/2025 with 21 days of Levaquin comes because of weakness and not feeling well. As per the toyin ent is mostly in the recliner. Not moving much. Not eating much. Seems weak. Went to PCP at the [facility] today and labs showed increasing WBC and was advised to come to the hospital. Denies any fevers. Had abdominal pain yesterday but currently no pain. Bowel movements are normal. No blood in stools or black stools. Micturating okay. Not draining much from biliary drain. Denies any chest pain or shortness of breath. No cough. No fevers. No headache. No runny nose or sore throat. Currently resting comfortably and hemodynamics are okay. Recently patient had ERCP for bile duct stone as an outpatient. He then underwent laparoscopic cholecystectomy on on 02/06/2025. Came to the ER on 02/08/2025 with severe abdominal pain. Imaging studies were consistent with biliary leak and consistent with sepsis due to biliary peritonitis. Surgery and GI saw the patient. Interventional radiology was consulted for percutaneous drain and was placed in the gallbladder fossa. As the patient continued to have significant pain and sepsis and possibility of ongoing leak, GI took patient for ERCP. Noticed a cystic duct leak as well as cystic duct obstruction and 2 ston es were removed and larger stent was placed and with this intervention patient improved. There is a plan to follow-up with GI in 4 to 6 weeks for removal of cystic duct stent. Patient still has percutaneous drain and was told that it will be there until end of February. Generalized weakness Leukocytosis UA - negative will obtain blood cultx Denies diarrhea On Levaquin for 21 days from 02/20/2025 for biliary leak postcholecystectomy. Patient is s/p cystic duct stent placement last admission and also percutaneous drainage placed. Abdominal cultures were growing Klebsiella cocci which is resistant to Zosyn and Rocephin. And also Klebsiella pneumonia which was pansensitive While inpatient will hold Levaquin and place on Invanz Gentle fluids CT abdomen pelvis " resolving fluid collection in the right hemidiaphragm. Slightly decreased fluid collection in the gallbladder fossa. Persistent fluid collection in the right upper quadrant between the colon and the duodenum stable from prior study". Surgery consulted - 79 yo M s/p laparoscopic cholecystectomy complicated by biloma/bile leak status post IR drainage with persistent intra-abdominal fluid collections Will reach out to IR to see if there is any accessible fluid collections for drainage Otherwise there is not much surgically to offer the patient, the fluid collections are decreasing slowly in size He also has a patent common duct stent in place Will follow Continue percutaneous drain until further recommendation by surgery Follow-up with GI as planned Moderate persistent asthma Allergic rhinitis Continue home meds Memory deficit On donezepil and memantine History of TIA Peripheral vascular disease On aspirin DVT prophylaxis Lovenox Disposition Medical floor Full code. Admission and Anticipated Discharge Date Admission Date: February 22, 2025 Subjective Pt seen in follow up Had recently complicated clinical course, s/p cholecystectomy w/ bile leak/ peritonitis Was discharged home on levaquin Now presents in the hospital - was started on Ertapenem on admission and surgery consulted Pt is lying in bed in NAD He appears comfortable, denies any abd. pain but pt is unable to provide any history denies fever, chills, chest pain, shortness of breath. Review of Systems Review of Systems: All systems reviewed & are unremarkable except as noted in Subjective Physical Exam Physical Exam: General- WD/WN elderly M in NAD Head- atraumatic Eyes- PERRL. Neck- supple, no JVD. Lungs- clear to auscultation no wheezing or crackles Heart- regular rate and rhythm; no murmur Abdomen- normal bowel sounds, soft, nontender, no distension. Biliary drain seen. Healing laparoscopic incision sites Extremities- no pretibial edema, no erythema seen Neuro- awake and alert, able to answer some simple questions but says it's October, and can't provide any history, no facial palsy; no dysarthria; moves extremities Results & Data Results & Data Vital Signs (Past 12 Hours) Vital Signs Pulse Pulse Resp BP BP Pulse Ox O2 Del Method 02/23/25 07:07 82 02/23/25 06:43 83 18 118/79 93 Room Air 02/23/25 03:09 87 20 127/81 93 Room Air 02/23/25 01:42 89 22 106/72 93 02/23/25 01:39 91 H 22 93 08/28/25 01:30 106/72 02/23/25 01:15 95 H 22 94 02/23/25 01:09 96 H 20 94 02/23/25 01:00 113/70 02/23/25 00:48 95 H 23 93 02/23/25 00:42 95 H 23 93 02/23/25 00:30 92 H 20 93 02/23/25 00:30 107/70 02/23/25 00:30 107/70 02/23/25 00:30 107/70 02/23/25 00:23 114/81 02/23/25 00:12 120 H 17 94 02/22/25 23:45 93 H 19 117/74 100 02/22/25 23:33 90 23 92 02/22/25 23:30 117/74 02/22/25 23:30 117/74 02/22/25 23:21 93 H 25 H 93 02/22/25 23:03 90 23 95 02/22/25 23:00 119/75 02/22/25 23:00 119/75 02/22/25 23:00 119/75 02/22/25 22:51 86 22 97 02/22/25 22:45 91 H 27 H 96 02/22/25 22:30 121/80 02/22/25 22:30 90 22 121/80 99 Room Air 02/22/25 22:24 93 H 23 93 02/22/25 22:21 89 18 95 02/22/25 22:15 90 22 96 02/22/25 22:00 129/87 02/22/25 22:00 129/87 02/22/25 21:57 93 H 22 94 02/22/25 21:33 91 H 21 95 02/22/25 21:30 133/80 02/22/25 21:30 133/80 Laboratory Results 02/23/25 02/23/25 02/22/25 Range/Units 09:01 04:55 19:47 WBC 13.70 H 14.75 H (4.8-10.8) K/ul RBC 4.39 L 5.16 (4.70-6.10) M/uL Hgb 13.1 L 15.6 (14.0-18.0) g/dl Hct 39.4 L 45.6 (42.0-52.0) % MCV 89.7 88.4 (80.0-100.0) fL MCH 29.8 30.2 (25.0-34.0) pg MCHC 33.2 34.2 (32.0-36.0) g/dL RDW Std Deviation 46.8 H 46.6 H (36.4-46.3) fL RDW Coeff of Shira 14.3 14.4 (11.5-14.5) % Plt Count 594 H 682 H (130-400) K/uL MPV 10.1 10.3 (9.4-12.4) fL Immature Gran % (Auto) 0.5 % Neut % (Auto) 76.5 % Lymph % (Auto) 11.9 % [place] % (Auto) 9.7 % Eos % (Auto) 0.9 % Baso % (Auto) 0.5 % Neut # (Auto) 11.28 H (1.40-6.50) K/uL Lymph # (Auto) 1.75 (1.20-3.40) K/uL [place] # (Auto) 1.43 H (0.11-0.59) K/uL Eos # (Auto) 0.13 (0.00-0.50) K/uL Baso # (Auto) 0.08 (0.00-0.20) K/uL Immature Gran # (Auto) 0.08 (0.01-0.20) K/uL PT 12.7 H (9.0-12.0) Seconds INR 1.2 H (0.9-1.1) APTT 28 (21-31) Seconds PTT Ratio 1.0 Sodium Pending 136 (136-145) mmol/L Potassium Pending 4.5 (3.5-5.1) mmol/L Chloride Pending 101 (98-107) mmol/L Carbon Dioxide Pending 25 (21-32) mmol/L Anion Gap Pending 10 (3-11) BUN Pending 22 (6-23) mg/dl Creatinine Pending 1.34 (0.6-1.4) mg/dl Est Cr Clr Drug Dosing Pending Not Reportable eGFR Pending 53.22 BUN/Creatinine Ratio Pending 16.4 (10-20) Glucose Pending 113 H (70-99(Fasting)) mg/dl Lactate 1.5 (0.4-2.0) mmol/L Calcium Pending 9.4 (8.6-10.3) mg/dl Phosphorus Pending Magnesium Pending Total Bilirubin Pending 0.8 (0.2-1.0) mg/dl AST Pending 13 (13-39) U/L ALT Pending 10 (7-52) U/L Alkaline Phosphatase Pending 45 (34-104) U/L Total Protein Pending 7.6 (6.0-8.3) gm/dl Albumin Pending 3.4 (3.4-5.0) gm/dl Globulin Pending 4.2 H (2.5-4.0) gm/dl Albumin/Globulin Ratio Pending 0.8 L (0.9-2) Procalcitonin 0.47 (0-0.5) ng/ml Urine Color Yellow Urine Appearance Clear (Clear) Urine pH 5.0 (4.5-7.5) Ur Specific [place] 1.044 H (1.000-1.030) Urine Protein 1+ H (Negative) Urine Glucose (UA) Negative (Negative) Urine Ketones Trace H (Negative) Urine Blood 1+ H (Negative) Urine Nitrite Negative (Negative) Urine Bilirubin Negative (Negative) Urine Urobilinogen Negative (Negative) Ur Leukocyte Esterase Trace H (Negative) Urine WBC (Auto) 6-10 H (0-5) /hpf Urine RBC (Auto) 0-2 (0-2) /hpf U Hyaline Cast (Auto) 0-2 (0-2) /lpf U Epithel Cells (Auto) 0-2 (0-2) /hpf Urine Bacteria (Auto) None Seen (None Seen) Urine Comment Medications Administered Current Inpatient Medications Acetaminophen (Acetaminophen 325 Mg Tab) 650 mg PO Q4H PRN PRN Reason: pain/fever Stop: 03/25/25 00:41 Albuterol (Albuterol Hfa 8 Gm Inhaler) 1 puffs INH QID PRN PRN Reason: sob Stop: 03/25/25 00:41 Aspirin (Aspirin 81 Mg Ectab) 81 mg PO QAM [facility] Stop: 03/25/25 08:59 Last Admin: 02/23/25 09:13 Dose: 81 mg Cetirizine HCl (Cetirizine Hcl 10 Mg Tablet) 10 mg PO DAILY [facility] Stop: 03/25/25 08:59 Last Admin: 02/23/25 09:14 Dose: 10 mg Donepezil HCl (Donepezil Hcl 10 Mg Tab) 10 mg PO HS [facility] Stop: 03/25/25 20:59 Enoxaparin Sodium (Enoxaparin Inj 40 Mg/0.4 Ml Syr) 40 mg SQ Q24H [facility] Stop: 03/25/25 08:59 Last Admin: 02/23/25 09:11 Dose: 40 mg Fluticasone Propionate (Fluticasone Propionate Na Spr 16 Gm Btl) 1 sprays NA BID PRN PRN Reason: Congestion Stop: 03/25/25 00:41 Fluticasone/Vilanterol (Fluticasone/Vilanterol 100/25mcg 14 Puffs/Inhaler) 1 puffs INH DAILY [facility] Stop: 03/25/25 08:59 Last Admin: 02/23/25 09:12 Dose: 1 puffs Ertapenem (Invanz 1000mg) 1,000 mg in 10 mls @ 2 mls/min IV Q24H [facility] Stop: 03/05/25 01:59 Last Admin: 02/23/25 01:45 Dose: 2 mls/min Lactated Ringer's (Lr) 1,000 mls @ 80 mls/hr IV .[id number] [facility] Stop: 02/24/25 01:41 Last Admin: 02/23/25 01:29 Dose: 80 mls/hr Lactobacillus Acidophilus (Advanced Probiotic 625 Mg Capsule) 1,250 mg PO DAILY [facility] Stop: 03/25/25 08:59 Last Admin: 02/23/25 09:13 Dose: 1,250 mg Memantine (Memantine Hcl 10 Mg Tab) 10 mg PO BID [facility] Stop: 03/25/25 08:59 Last Admin: 02/23/25 09:13 Dose: 10 mg Oxycodone/Acetaminophen (Oxycodone/Acetaminophen 5mg/325mg Tab) 1 tab PO Q6H PRN PRN Reason: Severe Pain (Scale 7, 8, 9,10) Stop: 03/09/25 00:41
[2025-02-23 09:40] LABS: Alanine Aminotransferase 7.0 U/L (7-52); Albumin Globulin Ratio 0.9 (0.9-2); Alkaline Phosphatase 36.0 U/L (34-104); Anion Gap 5.0 (3-11); Bilirubin,Total 0.7 mg/dl (0.2-1.0); Blood Urea Nitrogen 20.0 mg/dl (6-23); Calcium 8.9 mg/dl (8.6-10.3); Carbon Dioxide 28.0 mmol/L (21-32); Chloride 103.0 mmol/L (98-107); Creatinine Clr Calc Pharmacy 47.0 ml/min; Globulin 3.6 gm/dl (2.5-4.0); Glucose 108.0 mg/dl (70-99(Fasting)); Magnesium 2.0 mg/dl (1.7-2.4); Potassium 4.4 mmol/L (3.5-5.1); Sodium 136.0 mmol/L (136-145); Total Protein 6.7 gm/dl (6.0-8.3)
--- NOTE | 2025-02-23 17:37 | Electrocardiogram Report ---
Test Reason : Blood Pressure : */* mmHG Vent. Rate : 93 BPM Atrial Rate : 93 BPM P-R Int : 182 ms QRS Dur : 68 ms QT Int : 366 ms P-R-T Axes : -4 -15 -26 degrees QTcB Int : 455 ms Normal sinus rhythm Low voltage QRS Inferior infarct , age undetermined Abnormal ECG When compared with ECG of 11-Feb-2025 05:28, Inferior infarct is now Present Confirmed by Camron Vance ([id number]) on 02/23/2025 5:36:57 PM Referred By: [facility] Confirmed By: Camron Vance
[2025-02-23 19:55] VITALS: RESP 18
[2025-02-23] MEDS: DONEPEZIL HCL 10 MG TAB PO SCH (21:08)
[2025-02-24 07:43] LABS: Hematocrit (blood only) 38.4 % (42.0-52.0); Hemoglobin 13.0 g/dl (14.0-18.0); Mean Corpuscular Hemoglobin 30.0 pg (25.0-34.0); Mean Corpuscular Volume 88.5 fL (80.0-100.0); Platelet Count 525 K/uL (130-400); RDW Standard Deviation 45.7 fL (36.4-46.3); Red Blood Count 4.34 M/uL (4.70-6.10); White Blood Count 11.74 K/ul (4.8-10.8)
[2025-02-24 08:01] LABS: Alanine Aminotransferase 11.0 U/L (7-52); Albumin Globulin Ratio 0.8 (0.9-2); Alkaline Phosphatase 35.0 U/L (34-104); Anion Gap 9.0 (3-11); Bilirubin,Total 0.8 mg/dl (0.2-1.0); Blood Urea Nitrogen 19.0 mg/dl (6-23); Calcium 8.9 mg/dl (8.6-10.3); Carbon Dioxide 25.0 mmol/L (21-32); Chloride 102.0 mmol/L (98-107); Creatinine Clr Calc Pharmacy 52.5 ml/min; Globulin 3.7 gm/dl (2.5-4.0); Glucose 100.0 mg/dl (70-99(Fasting)); Magnesium 1.9 mg/dl (1.7-2.4); Potassium 4.1 mmol/L (3.5-5.1); Sodium 136.0 mmol/L (136-145); Total Protein 6.6 gm/dl (6.0-8.3)
[2025-02-24 08:06] VITALS: BP 123/72; TEMP 98.6; O2SAT 91
--- NOTE | 2025-02-24 08:09 | Hospitalist Progress Note ---
Date of Service February 24, 2025 Assessment & Plan (1) Generalized weakness: Plan: 79-yo M with hyperlipidemia, moderate persistent asthma, allergic rhinitis, history of TIA, hypertension, B12 deficiency, obesity, CKD stage III, memory deficit who was recently in the hospital for severe sepsis secondary to peritonitis due to biliary leak and discharged on 02/20/2025 with 21 days of Levaquin comes because of weakness and not feeling well. As per the toyin ent is mostly in the recliner. Not moving much. Not eating much. Seems weak. Went to [facility]CP at [facility] today and labs showed increasing WBC and was advised to come to the hospital. Denies any fevers. Had abdominal pain yesterday but currently no pain. Bowel movements are normal. No blood in stools or black stools. Micturating okay. Not draining much from biliary drain. Denies any chest pain or shortness of breath. No cough. No fevers. No headache. No runny nose or sore throat. Currently resting comfortably and hemodynamics are okay. Recently patient had ERCP for bile duct stone as an outpatient. He then underwent laparoscopic cholecystectomy on on 02/06/2025. Came to the ER on 02/08/2025 with severe abdominal pain. Imaging studies were consistent with biliary leak and consistent with sepsis due to biliary peritonitis. Surgery and GI saw the patient. Interventional radiology was consulted for percutaneous drain and was placed in the gallbladder fossa. As the patient continued to have significant pain and sepsis and possibility of ongoing leak, GI took patient for ERCP. Noticed a cystic duct leak as well as cystic duct obstruction and 2 ston es were removed and larger stent was placed and with this intervention patient improved. There is a plan to follow-up with GI in 4 to 6 weeks for removal of cystic duct stent. Patient still has percutaneous drain and was told that it will be there until end of February. Generalized weakness Leukocytosis UA - negative blood cultx - pending Denies diarrhea On Levaquin 500 mg daily for 21 days from 02/20/2025 for biliary leak postcholecystectomy. Patient is s/p cystic duct stent placement last admission and also percutaneous drainage placed. Abdominal cultures were growing Klebsiella cocci which is resistant to Zosyn and Rocephin. And also Klebsiella pneumonia which was pansensitive While inpatient will hold Levaquin and place on Invanz Gentle fluids CT abdomen pelvis " resolving fluid collection in the right hemidiaphragm. Slightly decreased fluid collection in the gallbladder fossa. Persistent fluid collection in the right upper quadrant between the colon and the duodenum stable from prior study". Surgery consulted - 79 yo M s/p laparoscopic cholecystectomy complicated by biloma/bile leak status post IR drainage with persistent intra-abdominal fluid collections Will reach out to IR to see if there is any accessible fluid collections for drainage Otherwise there is not much surgically to offer the patient, the fluid collections are decreasing slowly in size He also has a patent common duct stent in place Will follow 02/24 - per surgery - He seems to be back at his baseline and the fluid collections on his CT scan are improving with current antibiotic therapy We did discuss the case with interventional radiology, the areas are too small to drain percutaneously He can be discharged from a surgical standpoint with his drain in place Discussed w/ ID - pt can cont. on IV ertapenem for 4 weeks or PO Levaquin 750 daily + metronidazole 500 mg TID for 4 weeks - discussed with the pt and his - they would like to be discharged today - plan to DC on PO antibiotics with close follow up with PCP, surgery and also infectious disease. Per ID, Dr. Spence - recommend CT scan in 3 weeks and follow up in outpt ID clinic Continue percutaneous drain until further recommendation by surgery Follow-up with GI as planned Moderate persistent asthma Allergic rhinitis Continue home meds Memory deficit On donezepil and memantine History of TIA Peripheral vascular disease On aspirin Admission and Anticipated Discharge Date Admission Date: February 22, 2025 Subjective Pt seen in follow up Had recently complicated clinical course, s/p cholecystectomy w/ bile leak/ peritonitis Was discharged home on levaquin Now presents in the hospital - was started on Ertapenem on admission and surgery consulted Pt is lying in bed in NAD Pt is comfortable, denies any abd. pain but pt is unable to provide any history denies fever, chills, chest pain, shortness of breath. Pt's present at the bedside and discussed with - plans to take pt home. Says pt is at his baseline - pt walked in hallway w/ walker and mental status at baseline per . Discussed with ID - abx to be adjusted on DC and ID will follow up in outpt clinic. Also discussed w/ surgeon over the phone - pt ok to DC, no surgical intervention or IR needed at this time. Review of Systems Review of Systems: All systems reviewed & are unremarkable except as noted in Subjective Physical Exam Physical Exam: General- WD/WN elderly M in NAD Head- atraumatic Eyes- PERRL. Neck- supple, no JVD Lungs- clear to auscultation no wheezing or crackles Heart- regular rate and rhythm; no murmur Abdomen- normal bowel sounds, soft, nontender, no distension. Biliary drain seen. Healing laparoscopic incision sites Extremities- no pretibial edema, no erythema seen, moves extremities Neuro- awake and alert, able to answer some simple questions but can't provide any history, no facial palsy; no dysarthria; moves extremities Results & Data Results & Data Vital Signs (Past 12 Hours) Vital Signs Temp Pulse Resp BP Pulse Ox O2 Del Method 02/24/25 07:02 37.0 C 90 18 123/72 91 Room Air 02/23/25 23:19 37.2 C 97 H 18 128/75 94 Room Air Laboratory Results 02/24/25 02/23/25 Range/Units 07:09 09:01 WBC 11.74 H 13.70 H (4.8-10.8) K/ul RBC 4.34 L 4.39 L (4.70-6.10) M/uL Hgb 13.0 L 13.1 L (14.0-18.0) g/dl Hct 38.4 L 39.4 L (42.0-52.0) % MCV 88.5 89.7 (80.0-100.0) fL MCH 30.0 29.8 (25.0-34.0) pg MCHC 33.9 33.2 (32.0-36.0) g/dL RDW Std Deviation 45.7 46.8 H (36.4-46.3) fL RDW Coeff of Shira 14.0 14.3 (11.5-14.5) % Plt Count 525 H 594 H (130-400) K/uL MPV 10.6 10.1 (9.4-12.4) fL Sodium 136 136 (136-145) mmol/L Potassium 4.1 4.4 (3.5-5.1) mmol/L Chloride 102 103 (98-107) mmol/L Carbon Dioxide 25 28 (21-32) mmol/L Anion Gap 9 5 (3-11) BUN 19 20 (6-23) mg/dl Creatinine 1.14 1.39 (0.6-1.4) mg/dl Est Cr Clr Drug Dosing 52.5 47.0 ml/min eGFR 64.61 50.93 BUN/Creatinine Ratio 16.7 14.4 (10-20) Glucose 100 H 108 H (70-99(Fasting)) mg/dl Calcium 8.9 8.9 (8.6-10.3) mg/dl Phosphorus 2.5 2.9 (2.5-4.9) mg/dl Magnesium 1.9 2.0 (1.7-2.4) mg/dl Total Bilirubin 0.8 0.7 (0.2-1.0) mg/dl AST 17 10 L (13-39) U/L ALT 11 7 (7-52) U/L Alkaline Phosphatase 35 36 (34-104) U/L Total Protein 6.6 6.7 (6.0-8.3) gm/dl Albumin 2.9 L 3.1 L (3.4-5.0) gm/dl Globulin 3.7 3.6 (2.5-4.0) gm/dl Albumin/Globulin Ratio 0.8 L 0.9 (0.9-2) Medications Administered Current Inpatient Medications Acetaminophen (Acetaminophen 325 Mg Tab) 650 mg PO Q4H PRN PRN Reason: pain/fever Stop: 03/25/25 00:41 Albuterol (Albuterol Hfa 8 Gm Inhaler) 1 puffs INH QID PRN PRN Reason: sob Stop: 03/25/25 00:41 Aspirin (Aspirin 81 Mg Ectab) [facility] [place] Stop: 03/25/25 08:59 Last Admin: 02/23/25 09:13 Dose: 81 mg Cetirizine HCl (Cetirizine Hcl 10 Mg Tablet) 10 mg PO DAILY [facility] Stop: 03/25/25 08:59 Last Admin: 02/23/25 09:14 Dose: 10 mg Donepezil HCl (Donepezil Hcl 10 Mg Tab) 10 mg PO HS [facility] Stop: 03/25/25 20:59 Last Admin: 02/23/25 21:08 Dose: 10 mg Enoxaparin Sodium (Enoxaparin Inj 40 Mg/0.4 Ml Syr) 40 mg SQ Q24H [facility] Stop: 03/25/25 08:59 Last Admin: 02/23/25 09:11 Dose: 40 mg Fluticasone Propionate (Fluticasone Propionate Na Spr 16 Gm Btl) 1 sprays NA BID PRN PRN Reason: Congestion Stop: 03/25/25 00:41 Fluticasone/Vilanterol (Fluticasone/Vilanterol 100/25mcg 14 Puffs/Inhaler) 1 puffs INH DAILY [facility] Stop: 03/25/25 08:59 Last Admin: 02/23/25 09:12 Dose: 1 puffs Ertapenem (Invanz 1000mg) 1,000 mg in 10 mls @ 2 mls/min IV Q24H [facility] Stop: 03/05/25 01:59 Last Admin: 02/24/25 02:09 Dose: 2 mls/min Lactobacillus Acidophilus (Advanced Probiotic 625 Mg Capsule) 1,250 mg PO DAILY [facility] Stop: 03/25/25 08:59 Last Admin: 02/23/25 09:13 Dose: 1,250 mg Memantine (Memantine Hcl 10 Mg Tab) 10 mg PO BID [facility] Stop: 03/25/25 08:59 Last Admin: 02/23/25 21:08 Dose: 10 mg Oxycodone/Acetaminophen (Oxycodone/Acetaminophen 5mg/325mg Tab) 1 tab PO Q6H PRN PRN Reason: Severe Pain (Scale 7, 8, 9,10) Stop: 03/09/25 00:41
--- NOTE | 2025-02-24 10:04 | Surgery Progress Note ---
Date of Service February 24, 2025 Assessment & Plan (1) Bile leak: Plan: He seems to be back at his baseline and the fluid collections on his CT scan are improving with current antibiotic therapy We did discuss the case with interventional radiology, the areas are too small to drain percutaneously He can be discharged from a surgical standpoint with his drain in place Surgery will sign off at this time, please call with any questions or concerns (2) Abdominal pain: (3) Biloma following surgery: Admission and Anticipated Discharge Date Admission Date: February 22, 2025 Subjective Patient seen and examined. Denies abdominal pain. Tolerated his breakfast without issue. Afebrile. Review of Systems Constitutional: + weakness; no fever and no chills Respiratory: no cough and no chest congestion Cardiovascular: no chest pain, no palpitations and no syncope Gastrointestinal: as per Subjective / HPI; no nausea and no vomiting Genitourinary: no dysuria or no urinary incontinence Integumentary: no acne, no lesions and no changing lesions Neurologic: no gait abnormality and no unsteadiness Psychiatric: no behavioral changes and no depression Physical Exam Constitutional: WD/WN, vitals as above Eyes: PERRL, conjunctivae normal, anicteric sclerae ENMT: external ear and nose normal, oropharynx normal Respiratory: normal respiratory effort, lungs clear to auscultation Cardiovascular: RRR, no murmur, no edema Gastrointestinal (Abdomen): Inspection/Auscultation: abdomen normal to inspection; abdomen not distended Percussion/Palpation: abdomen soft; abdomen nontender, no guarding and no hernia Drain in place with serosanguineous output Skin: no rashes, warm and dry Psychiatric: A+Ox3, euthymic affect Results & Data Vital Signs (Past 12 Hours) Vital Signs Temp Pulse Resp BP Pulse Ox O2 Del Method 02/24/25 07:02 37.0 C 90 18 123/72 91 Room Air 02/23/25 23:19 37.2 C 97 H 18 128/75 94 Room Air PG Care Time/CCT Total # of Minutes Spent Total Time Spent with Patient: Total time spent is greater than 50% in coordination of care (as documented) at patient's floor/unit and/or counseling patient: Coding Level of Care Code 09093 SUB INP/OBS CARE 07/23MIN Diagnoses Bile leak K83.9 Abdominal pain R10.9 Biloma following surgery, sequela K66.8; T81.89XS Encounter type: sequela (3) Biloma following surgery Encounter type: sequela Qualified Code(s): K66.8 - Other specified disorders of peritoneum; T81.89XS - Other complications of procedures, not elsewhere classified, sequela
--- NOTE | 2025-02-24 13:26 | Discharge Summary ---
Date of Service February 24, 2025 Admission HPI Per Admitting Provider 79-year-old male with past medical history significant for hyperlipidemia, moderate persistent asthma, allergic rhinitis, history of TIA, hypertension, B12 deficiency, obesity, CKD stage III, memory deficit who was recently in the hospital for severe sepsis secondary to peritonitis due to biliary leak and discharged on 02/20/2025 with 21 days of Levaquin comes because of weakness and not feeling well. As per the patient is mostly in the recliner. Not moving much. Not eating much. Seems weak. Went to [facility] today and labs showed increasing WBC and was advised to come to the hospital. Denies any fevers. Had abdominal pain yesterday but currently no pain. Bowel movements are normal. No blood in stools or black stools. Micturating okay. Not draining much from biliary drain. Denies any chest pain or shortness of breath. No cough. No fevers. No headache. No runny nose or sore throat. Currently resting comfortably and hemodynamics are okay. Recently patient had ERCP for bile duct stone as an outpatient. He then underwent laparoscopic cholecystectomy on on 02/06/2025. Came to the ER on 02/08/2025 with severe abdominal pain. Imaging studies were consistent with biliary leak and consistent with sepsis due to biliary peritonitis. Surgery and GI saw the patient. Interventional radiology was consulted for percutaneous drain and was placed in the gallbladder fossa. As the patient continued to have significant pain and sepsis and possibility of ongoing leak ,GI took patient for ERCP. Noticed a cystic duct leak as well as cystic duct obstruction and 2 stones were removed and larger stent was placed and with this intervention patient improved. There is a plan to follow-up with GI in 4 to 6 weeks for removal of cystic duct stent. Patient still has percutaneous drain and was told that it will be there until end of February. Past medical history. As mentioned above. Past surgical history. Laparoscopic cholecystectomy. ERCP. Biliary stent placement. Biliary percutaneous drain. Colonoscopy. EGD with endoscopic ultrasound. Knee arthroscopy. Social history. . No smoking. No alcohol use. No drug use. Family history. Mother had rheumatoid arthritis. Father had Alzheimer's disease. Sister had diabetes. Admission Exam Per Admitting Provider General-Not in distress Head- atraumatic Eyes- PERRL. ENT- oropharynx clear Neck- supple, no JVD. Lungs- clear to auscultation no wheezing or crackles Heart- regular rate and rhythm; no murmur, no gallop. Abdomen- normal bowel sounds, soft, nontender, no distension. Biliary drain seen. Healing laparoscopic incision sites Extremities- no pretibial edema, no erythema seen Neuro- alert, oriented PERRL, no facial palsy; no dysarthria; moves extremities Principal Diagnosis Hx of bile leak, s/p cholecystectomy Discharge Exam General- WD/WN elderly M in NAD Head- atraumatic Eyes- PERRL. Neck- supple, no JVD Lungs- clear to auscultation no wheezing or crackles Heart- regular rate and rhythm; no murmur Abdomen- normal bowel sounds, soft, nontender, no distension. Biliary drain seen. Healing laparoscopic incision sites Extremities- no pretibial edema, no erythema seen, moves extremities Neuro- awake and alert, able to answer some simple questions but can't provide any history, no facial palsy; no dysarthria; moves extremities Discharge Data Allergies Allergy/AdvReac Type Severity Reaction Status Date / Time cortisone Allergy Mild Cortisone Verified 02/14/25 07:39 cream ("made things worse") Consultations 02/22/25 22:51 ED Decision to Admit Stat 02/23/25 08:00 Consult General Surgery Routine Ordered Studies 02/22/25 20:13 CT Abd and Pelvis [CT abd pelvis IV con only] Stat FINDINGS: Lung bases: See below. Pleural space: Worsening bilateral pleural effusions with compressive atelectasis of both lobes. ABDOMEN: Liver: Small residual fluid collection subtending the right hemidiaphragm along the right hepatic dome measures 2.5 x 1.6 cm. Small fluid collection investing itself between the diaphragm in the left hepatic lobe contains a percutaneous catheter. This has significantly decreased in size since the prior exam where it previously measures 3 x 5. 3 cm and currently measures 1.9 x 4.3 cm. Gallbladder and bile ducts: 5.5 x 2.4 cm fluid collection within the gallbladder fossa likely represents small biloma is unchanged from prior study. Internalized common bile duct stent. Postoperative changes prior cholecystectomy with a 4.1 x 2.1 cm fluid collection within the gallbladder fossa. There are 2 tiny locules of air immediately adjacent to this fluid collection. Postop changes prior cholecystectomy with placement of an internalized biliary stent. This results in mild pneumobilia. Pancreas: Unremarkable. No mass. No ductal dilation. Spleen: Unremarkable. No splenomegaly. Adrenals: Unremarkable. No mass. Kidneys and ureters: Unremarkable. No solid mass. No hydronephrosis. Stomach and bowel: Thick-walled fluid-filled collection investing itself between the colon in the duodenum in the right upper quadrant measures 6.5 x 4.5 x 4.0 cm. This is unchanged from prior exam. Small fluid collection seen along the right hepatic dome just beneath the right hemidiaphragm has not changed since prior exam. No obstruction. PELVIS: Appendix: No findings to suggest acute appendicitis. Bladder: Unremarkable. No mass. Reproductive: Unremarkable as visualized. ABDOMEN and PELVIS: Intraperitoneal space: Unremarkable. No free air. No significant fluid collection. Bones/joints: No acute fracture. No dislocation. Soft tissues: Unremarkable. Vasculature: Unremarkable. No abdominal aortic aneurysm. Lymph nodes: Unremarkable. No enlarged lymph nodes. IMPRESSION: Resolving fluid collection along the right hemidiaphragm measuring 2.5 cm. 4.1 cm fluid collection within the gallbladder fossa slightly decreased in size from prior exam where it measured 5.4 cm. Persistent fluid collection within the right upper quadrant investing itself between the colon in the duodenum stable since prior study Hospital Course (1) Generalized weakness: 79-yo M with hyperlipidemia, moderate persistent asthma, allergic rhinitis, history of TIA, hypertension, B12 deficiency, obesity, CKD stage III, memory deficit who was recently in the hospital for severe sepsis secondary to peritonitis due to biliary leak and discharged on 02/20/2025 with 21 days of Levaquin comes because of weakness and not feeling well. As per the patient is mostly in the recliner. Not moving much. Not eating much. Seems weak. Went to PCP at [facility] today and labs showed increasing WBC and was advised to come to the hospital. Denies any fevers. Had abdominal pain yesterday but currently no pain. Bowel movements are normal. No blood in stools or black stools. Micturating okay. Not draining much from biliary drain. Denies any chest pain or shortness of breath. No cough. No fevers. No headache. No runny nose or sore throat. Currently resting comfortably and hemodynamics are okay. Recently patient had ERCP for bile duct stone as an outpatient. He then underwent laparoscopic cholecystectomy on on 02/06/2025. Came to the ER on 02/08/2025 with severe abdominal pain. Imaging studies were consistent with biliary leak and consistent with sepsis due to biliary peritonitis. Surgery and GI saw the patient. Interventional radiology was consulted for percutaneous drain and was placed in the gallbladder fossa. As the patient continued to have significant pain and sepsis and possibility of ongoing leak, GI took patient for ERCP. Noticed a cystic duct leak as well as cystic duct obstruction and 2 stones were removed and larger stent was placed and with this intervention patient improved. There is a plan to follow-up with GI in 4 to 6 weeks for removal of cystic duct stent. Patient still has percutaneous drain and was told that it will be there until end of February. Generalized weakness Leukocytosis UA - negative blood cultx - pending Denies diarrhea On Levaquin 500 mg daily for 21 days from 02/20/2025 for biliary leak postcholecystectomy. Patient is s/p cystic duct stent placement last admission and also percutaneous drainage placed. Abdominal cultures were growing Klebsiella cocci which is resistant to Zosyn and Rocephin. And also Klebsiella pneumonia which was pansensitive While inpatient will hold Levaquin and place on Invanz Gentle fluids CT abdomen pelvis " resolving fluid collection in the right hemidiaphragm. Slightly decreased fluid collection in the gallbladder fossa. Persistent fluid collection in the right upper quadrant between the colon and the duodenum stable from prior study". Surgery consulted - 79 yo M s/p laparoscopic cholecystectomy complicated by biloma/bile leak status post IR drainage with persistent intra-abdominal fluid collections Will reach out to IR to see if there is any accessible fluid collections for drainage Otherwise there is not much surgically to offer the patient, the fluid collections are decreasing slowly in size He also has a patent common duct stent in place Will follow 02/24 - per surgery - He seems to be back at his baseline and the fluid collections on his CT scan are improving with current antibiotic therapy We did discuss the case with interventional radiology, the areas are too small to drain percutaneously He can be discharged from a surgical standpoint with his drain in place Discussed w/ ID - pt can cont. on IV ertapenem for 4 weeks or PO Levaquin 750 daily + metronidazole 500 mg TID for 4 weeks - discussed with the pt and his - they would like to be discharged today - plan to DC on PO antibiotics with close follow up with PCP, surgery and also infectious disease. Per ID, Dr. Spence - recommend CT scan in 3 weeks and follow up in outpt ID clinic Continue percutaneous drain until further recommendation by surgery Follow-up with GI as planned Moderate persistent asthma Allergic rhinitis Continue home meds Memory deficit On donezepil and memantine History of TIA Peripheral vascular disease On aspirin Total Time Total Time Spent Total Time Spent (In Minutes): 40 Discharge Plan Discharge Items Patient Disposition: Home - Self-Care Reason For Visit: ILLNESS, BILARY LEAK Discharge Diagnosis: Hx of bile leak, s/p cholecystectomy Condition on Discharge: Fair Activity: Per Instructions section Non-emergency contact: Primary Care Provider, Surgeon and Specialist Call non-emergency contact if: you have any medication questions and your symptoms worsen Follow-up/Referrals: Negin Trevizo PA-C [Physician Aviation Program Manager] - [facility] [Primary Care Provider] - ([facility] will call you with an appointment.) Diet: Regular and Heart Healthy Addtl Attending Provider Instructions: Post-Surgical ~Discharge Instructions Activity Recommendations: - lifting limitation: (20 pounds for 2 weeks), - exercise/sex/sports limit: (nonstrenuous for 2 weeks), - driving or machine use limit: (none for 1 week), - Shower/bathe limit: (may shower , no submerging underwater) - Diet: - Resume previous diet SPECIAL CARE INSTRUCTIONS: - May shower. Let water run over area and pat dry. - Sponge bath around drain site. Try not to get drain site wet while showering if able. - Leave surgical glue on incisions this will fall off on its own. - You will go home with the IR drain. Keep record of output daily and the color. You will need to keep the drain bag accordion (at the top) compressed at all times to keep the bag to suction. Keep the bag to gravity (below the waist) and secure with clothes pin if able. - Call the surgeon's office with any questions or concerns - - (ex. temperature higher than 101 degrees F, excessive bleeding or pain). Addtl Chief Innovation Officer Provider Instructions: Follow up with primary care doctor , surgeon and infectious disease doctor. Instructions per surgery above. Continue with Levaquin 750 mg daily and metronidazole 500 mg three times a day for 4 weeks. It is recommended that you have a CT scan done in 3 weeks and follow up with results with infectious disease doctor. Pending Studies at Discharge: Yes Studies:: blood cultx pending Stand-Alone Forms: My [facility], Smoking Cessation Medications and DC Order Prescriptions: New levofloxacin 750 mg tablet 750 mg PO DAILY Qty: 28 0RF metronidazole 500 mg tablet 500 mg PO TID 28 Days Qty: 84 0RF Continued Adult 50 Plus Probiotic 4 billion cell capsule 4,000 mmu cells PO DAILY Qty: 30 0RF Rx Instructions: administer with a meal donepezil 10 mg Tablet 10 mg PO HS aspirin 81 mg Tablet,Delayed Release (Dr/Ec) 81 mg PO QAM albuterol sulfate 90 mcg/actuation Hfa Aerosol Inhaler 1 inh INHALATION QID PRN (Reason: sob) fluticasone propionate 50 mcg/actuation [place],Suspension 1 spray INTRANASAL BID PRN (Reason: Congestion) Rx Instructions: administer into each nostril memantine 10 mg Tablet 10 mg PO BID Allergy Relief (cetirizine) 10 mg Capsule 10 mg PO DAILY lutein-zeaxanthin 25-5 mg Capsule 1 cap PO HS cyanocobalamin (vitamin B-12) 1,000 mcg Capsule 1,000 mcg PO 4XWK fluticasone propion-salmeterol [Advair Diskus] 100-50 mcg/dose Blister With Device 1 inh INHALATION BID oxycodone-acetaminophen [Percocet] 5-325 mg tablet 1 tab PO Q6H PRN (Reason: pain) Qty: 14 0RF Discontinued levofloxacin 500 mg tablet 500 mg PO DAILY 21 Days Qty: 21 0RF Discharge Orders: Discharge Order (Routine); Ordered 02/24/25 Ordered By: Spencer Palacios Admission Data Admit Date/Time: 02/22/25 23:38 Attending Provider: Spencer Palacios Admit Provider: Garett Cook Primary Care Provider: [facility] Other Providers: Garett Cook; Avila Cam; [facility]
[2025-02-24 13:37] VITALS: PULSE 83
--- NOTE | 2025-02-24 14:25 | Communication Note ---
Date of Service: February 24, 2025 Mr. Elias is a 79-year-old man who was admitted to [facility] on 02/22 because of generalized weakness and leukocytosis detected on outpatient lab. He has a history of cholelithiasis who underwent ERCP with biliary stent placement in the common bile duct on 01/20/2025 at [facility] followed by laparoscopic cholecystectomy on 02/06/2025 at [facility]. Unfortunately, the laparoscopic cholecystectomy was complicated with bile leak (cystic duct leak), multiple bilomas and intra-abdominal abscess. At that time, he underwent an IR guided drainage of the intra-abdominal collection on 02/10/2025 which grew Klebsiella oxytoca and Klebsiella pneumoniae. Repeat CT chest on 02/19/2025 showed gas and fluid containing collection in the gallbladder fossa with the numerous other additional fluid collections scattered throughout the abdomen and pelvis (few them modestly decreased in size). He was treated with IV cefepime and Flagyl while inpatient and then discharged home on 02/20/2025 on oral levofloxacin. Since then, he has been feeling extremely weak and a CBC performed at the [facility] howed leukocytosis and hence, he was instructed to go to the Emergency Department for further management. On presentation, he was afebrile but tachycardic at around 111; the rest of the vitals were within normal limits. Initial workup showed leukocytosis of 14.7 (ANC 11)-(WBC 15 on 01/2413 on 02/20) with repeat CT imaging of the abdomen and pelvis showing resolving fluid collection along the right hemidiaphragm as well as reduction in the size of the gallbladder fossa collection (from 5.4 cm on 02/13 to 4.1 cm on 02/22) with persistent fluid collection within the right upper quadrant. ID team was contacted for further assessment and to help guide antibiotic treatment. Imaging: CT abdomen pelvis on 02/22: - Resolving fluid collection along the right hemidiaphragm measuring 2.5 cm. - 4.1 cm fluid collection within the gallbladder fossa slightly decreased in size from prior exam where it measured 5.4 cm. - Persistent fluid collection within the right upper quadrant investing itself between the colon in the duodenum stable since prior study CT abdomen pelvis on 02/13: 1. No biliary ductal dilatation status post cholecystectomy. Common bile duct stent in place. Significant interval decrease in size of the left perihepatic fluid collection following drain placement. 2. Slight increase in size of multiple abdominal and pelvic fluid collections which demonstrate mild peripheral enhancement since CT of February 08, 2025, including a 6.8 x 3 cm cholecystectomy bed collection. This is consistent with a biloma and the additional fluid collections may also represent bilomas. As before, a few collections contain a small amount of gas. Given the clinical history, superimposed infection cannot be excluded. Increase in apparent phlegmon within the right anterior pararenal space. 3. Right colon and gastric/duodenal wall thickening, likely reactive. 4. No evidence for a bowel obstruction. 5. Small bilateral pleural effusions. Associated bibasilar opacities favor a telectasis Microbiology: 02/10: Gallbladder fossa drained fluid culture growing Klebsiella oxytoca (resistant to ceftriaxone, sensitive to cefepime, carbapenems and fluoroqui nolones) and Klebsiella pneumoniae Assessment: 1. Postoperative Intra-abdominal abscess/gallbladder fossa abscess 2. Multiple intra-abdominal/pelvic bilomas 3. Cystic duct bile leak (after cholecystectomy) 4. Recent history of laparoscopic cholecystectomy on 02/06/2025 Recommendations: Since the CT abdomen and pelvis showing decreased intra-abdominal collections and decrease in the size of the gallbladder fossa abscess, I would not be concerned about inadequate antibiotic coverage. A leukocytosis, could be reactive especially with persistent bile leak. Therefore, if the patient is still able to tolerate p.o., consider keeping on oral Levaquin 750 mg once daily along with oral Flagyl 500 mg 3 times daily. However, if he is not able to tolerate p.o., I would recommend IV ertapenem 1 g daily. I would aim for a total duration of 4 weeks (anticipated end date March 24, 2025) with a repeat CT scan in 3 weeks from today. I will order the CT scan in the [facility] system so that I can get the result whenever done and decide on final antibiotic plan accordingly. I will also set an appointment for him in ou r clinic at [facility] if possible within 6 weeks.
--- NOTE | 2025-02-26 16:47 | Coding Query ---
CODING QUERY To promote full compliance with coding requirements relating to patient care, provider participation is requested in all cases of [place] uncertainty. Please assist us with the question(s) below: Coding Question(s): Pt admitted with weakness, dehydration. S/P GB removal with resulting biloma. Presently with bile duct drainage tube. Please document, if known or suspected, the etiology of patient's weakness. Thank you. Bg Rodriguez [facility] Physician's Response(s): Patient seems to be back to baseline , some weakness from being deconditioned, prolonged hospital stay. However able to ambulate without difficulty w/ a walker. Principal Diagnosis: "that condition established after study, to be chiefly responsible for occasioning the admission of the patient to the hospital for care." Co-Existing Principal Diagnosis: "when two or more diagnoses equally meet the criteria for principal diagnosis as determined by the circumstances of admission, diagnostic work up, and/or therapy provided, and the Alphabetic Index, Tabular List, or another coding guideline does not provide sequencing direction, any one of the diagnoses may be sequenced first." "When the physician has documented what appears to be a current diagnosis in the body of the record, but has not included the diagnosis in the final diagnostic statement, the physician should be asked whether the diagnosis should be added." (Source Coding Clinic 2 QTR90. p3-4) NITHIN
== END 2025-02-24 14:42 | disposition home or self-care (01) | DRG 948 ==
LOC: ED 19:01 → EDINP 23:38 → 3W 02-23 12:41